=== PATIENT | female | born 1960 | race Caucasian/White ===

== ENCOUNTER → 2018-04-01 | Outpatient (CLI) | payer BC ==
--- NOTE | 2018-04-01 15:13 | BD ---
EXAMINATION TYPE: Axial Bone Density DATE OF EXAM: 04/01/2018 COMPARISON: NONE CLINICAL HISTORY: 57-year-old female age-related osteoporosis, postmenopausal screening Height: 5 FT 5 IN Weight: 255 FRAX RISK QUESTIONS: RISK FACTORS HISTORY OF: Postmenopausal woman: AGE 49 MEDICATIONS: Additional Medications: METOPROLOL, HYDROCHLOROTHIAZIDE, ACID REFLUX MEDS, VESICARE, ATORVASTATIN, TAMINS, ALLERGY MEDS OTC , PRESERVISION, Additional History: EXAM MEASUREMENTS: Bone mineral densitometry was performed using the [employer] System. Bone mineral density as measured about the Lumbar spine is: ----- L1-L4(G/cm2): 1.410 T Score Values are as follows: ----- L2: 1.8 ----- L3: 2.3 ----- L4: 1.8 ----- L1-L4: 1.9 BASELINE Bone mineral density about the R hip (g/cm2): 0.974 Bone mineral density about the L hip (g/cm2): 0.992 T Score values are as follows: -----R Neck: -0.5 -----L Neck: -0.3 -----R Total: 0.5 -----L Total: 0.8 BASELINE IMPRESSION: Normal (Values between +1 and -1 indicate normal bone mass). Consider repeating this study in 5 year s or sooner if there is some new clinical indication. NOTE: T-SCORE=SD OF THE YOUNG ADULT MEAN.
--- NOTE | 2018-04-02 13:50 | MM ---
Reason for exam: screening (asymptomatic). Last mammogram was performed 2 years ago. History: Patient is postmenopausal and is nulliparous. Benign excisional biopsy of the right breast. Physical Findings: A clinical breast exam by your physician is recommended on an annual basis and results should be correlated with mammographic findings. MG Screening Mammo w CAD Bilateral CC and MLO view(s) were taken. Prior study comparison: March 26, 2016, mammogram, performed at [facility]. December 26, 2014, mammogram, performed at [facility]. The breast tissue is heterogeneously dense. This may lower the sensitivity of mammography. Previous mammotome biopsy in the right breast. There is chronic nodularity in the left axilla. There is no discrete abnormality. ASSESSMENT: Benign, BI-RAD 2 RECOMMENDATION: Routine screening mammogram of both breasts in 1 year.
== END | disposition home or self-care (01) ==
LOC: RADMAMWWP 08:07
PROVIDERS: ATTEND Internal Medicine Geriatric Medicine
DX: Z12.31 Encounter for screening mammogram for malignant neoplasm of breast (principal); M81.0 Age-related osteoporosis without current pathological fracture
CPT/HCPCS: 77067; 77080

== ENCOUNTER → 2019-07-01 | Outpatient (CLI) | payer BC ==
--- NOTE | 2019-07-02 11:07 | MM ---
Reason for exam: screening (asymptomatic). Last mammogram was performed 1 year and 3 months ago. History: Patient is postmenopausal and is nulliparous. Benign excisional biopsy of the right breast. Took hormonal contraceptives for 10 years. Physical Findings: A clinical breast exam by your physician is recommended on an annual basis and results should be correlated with mammographic findings. MG 3D Screening Mammo W/Cad Bilateral CC and MLO view(s) were taken. Prior study comparison: April 01, 2018, bilateral MG screening mammo w CAD. March 26, 2016, mammogram, performed at [facility]. There are scattered fibroglandular densities. No significant changes when compared with prior studies. ASSESSMENT: Benign, BI-RAD 2 RECOMMENDATION: Routine screening mammogram of both breasts in 1 year.
== END | disposition home or self-care (01) ==
LOC: RADMAMWWP 06:50
PROVIDERS: ATTEND Internal Medicine Geriatric Medicine
DX: Z12.31 Encounter for screening mammogram for malignant neoplasm of breast (principal)
CPT/HCPCS: 77063; 77067

== ENCOUNTER → 2020-10-18 | Outpatient (CLI) | payer BC ==
--- NOTE | 2020-10-20 09:57 | MM ---
Reason for exam: screening (asymptomatic). Last mammogram was performed 1 year and 4 months ago. History: Patient is postmenopausal and is nulliparous. Benign excisional biopsy of the right breast. Took hormonal contraceptives for 10 years. Physical Findings: A clinical breast exam by your physician is recommended on an annual basis and results should be correlated with mammographic findings. MG 3D Screening Mammo W/Cad Bilateral CC and MLO view(s) were taken. Prior study comparison: July 01, 2019, bilateral MG 3d screening mammo w/cad. April 01, 2018, bilateral MG screening mammo w CAD. The breast tissue is heterogeneously dense. This may lower the sensitivity of mammography. There is no discrete abnormality. No significant changes when compared with prior studies. ASSESSMENT: Negative, BI-RAD 1 RECOMMENDATION: Routine screening mammogram of both breasts in 1 year.
== END | disposition home or self-care (01) ==
LOC: RADMAMWWP 08:01
PROVIDERS: ATTEND Internal Medicine Geriatric Medicine
DX: Z12.31 Encounter for screening mammogram for malignant neoplasm of breast (principal); Z78.0 Asymptomatic menopausal state
CPT/HCPCS: 77063; 77067

== ENCOUNTER → 2021-01-18 | Outpatient (CLI) | payer BC ==
--- NOTE | 2021-01-18 08:39 | US ---
EXAMINATION TYPE: US abdomen complete DATE OF EXAM: 01/18/2021 COMPARISON: NONE CLINICAL HISTORY: R10.84 Generalized Abdominal Pain. RUQ pain EXAM MEASUREMENTS: Liver Length: 20.8 cm Gallbladder Wall: 0.2 cm CBD: 0.5 cm Spleen: 11.9 cm Right Kidney: 12.5 x 4.2 x 4.8 cm Left Kidney: 12.5 x 4.6 x 4.6 cm Technical limitations due to patient's body habitus and overlying bowel content Pancreas: Obscured by bowel gas Liver: The liver parenchyma is enlarged and diffusely fatty infiltrated., Probable cyst within the left lobe measuring 0.8 x 1.0 cm with through transmission. Evidence for sonographic Cordero's sign: no CBD: wnl Spleen: appears wnl Right Kidney: no evidence of hydronephrosis Left Kidney: no evidence of hydronephrosis Upper IVC: wnl Abd Aorta: wnl IMPRESSION: 1. Diffuse fatty infiltration and hepatomegaly. 1 cm probable cyst in the left lobe of the liver. 2. No gallstones. 3. No hydronephrosis or shadowing renal calculi. 4. The pancreas is partially obscured due to overlying bowel gas.
--- NOTE | 2021-01-18 10:34 | XR ---
EXAMINATION TYPE: XR chest 2V DATE OF EXAM: 01/18/2021 COMPARISON: None HISTORY: 60-year-old female R09.1, right-sided pleurisy TECHNIQUE: Frontal and lateral views FINDINGS: The cardiomediastinal silhouette, aorta, and pulmonary vasculature are within normal limits. Hazy yara g densities related to overlying soft tissue. Otherwise, lungs and pleural spaces are clear. IMPRESSION: No acute cardiopulmonary process.
== END | disposition home or self-care (01) ==
LOC: RADUSWWP 07:23
PROVIDERS: ATTEND Internal Medicine Geriatric Medicine
DX: K76.0 Fatty (change of) liver, not elsewhere classified (principal); R16.0 Hepatomegaly, not elsewhere classified; R09.1 Pleurisy
CPT/HCPCS: 71046; 76700

== ENCOUNTER → 2022-08-15 | Outpatient (CLI) | payer BC ==
--- NOTE | 2022-08-16 11:29 | MM ---
Reason for Exam: Screening (asymptomatic). Last mammogram was performed 1 year(s) and 10 month(s) ago. Patient History: Menarche at age 11. Patient has no children. Postmenopausal. Patient used Hormonal Contraceptives for 10 years. Benign Excisional Biopsy on the right side. Risk Values: Sheila 5 year model risk: 2.1%. NCI Lifetime model risk: 8.4%. Prior Study Comparison: 04/01/2018 Bilateral Screening Mammogram, [facility]. 07/01/2019 Bilateral Screening Mammogram, [facility]. 10/18/2020 Bilateral Screening Mammogram, [facility]. Tissue Density: There are scattered fibroglandular densities. Findings: Analyzed By CAD. There are a few scattered small benign-appearing round calcifications bilaterally seen on current study. Benign-appearing vascular calcification is seen on current study. New group of indistinct calcifications anterior depth slightly inner lower aspect left breast warrants further workup. Overall Assessment: Incomplete: need additional imaging evaluation, BI-RAD 0 Management: Special View Mammogram of the left breast. Return for additional spot magnification and true lateral views left breast. Electronically signed and approved by: Amilcar Carter M.D.
== END | disposition home or self-care (01) ==
LOC: RADMAMWWP 09:12
PROVIDERS: ATTEND Internal Medicine Geriatric Medicine
DX: Z12.31 Encounter for screening mammogram for malignant neoplasm of breast (principal); Z78.0 Asymptomatic menopausal state; Z98.890 Other specified postprocedural states
CPT/HCPCS: 77063; 77067

== ENCOUNTER → 2022-08-21 | Outpatient (CLI) | payer BC ==
--- NOTE | 2022-08-23 09:12 | MM ---
Reason for Exam: Additional evaluation requested from abnormal screening. Last screening mammogram was performed less than 1 month ago. Patient History: Menarche at age 11. Patient has no children. Postmenopausal. Patient used Hormonal Contraceptives for 10 years. Benign Excisional Biopsy on the right side. Risk Values: Sheila 5 year model risk: 2.1%. NCI Lifetime model risk: 8.4%. Prior Study Comparison: 07/01/2019 Bilateral Screening Mammogram, [facility]. 10/18/2020 Bilateral Screening Mammogram, [facility]. 08/15/2022 Bilateral MG 3D screening mammo w/cad, [facility]. Tissue Density: Left: There are scattered fibroglandular densities. Findings: Analyzed By CAD. Calcifications may reside within a vessel. Six-month follow-up is advised. Overall Assessment: Probably benign, BI-RAD 3 Management: Diagnostic Mammogram of the left breast. A clinical breast exam by your physician is recommended on an annual basis and results should be correlated with mammographic findings. This exam should not preclude additional follow-up of suspicious palpable abnormalities. Results were given to the patient verbally at the time of exam. Electronically signed and approved by: Oliverio Gaviria M.D. Radiologis
== END | disposition home or self-care (01) ==
LOC: RADMAMWWP 09:00
PROVIDERS: ATTEND Internal Medicine Geriatric Medicine
DX: R92.8 Other abnormal and inconclusive findings on diagnostic imaging of breast (principal); Z78.0 Asymptomatic menopausal state; Z98.890 Other specified postprocedural states
CPT/HCPCS: 77061; 77065

== ENCOUNTER → 2023-04-09 | Outpatient (CLI) | payer BC ==
--- NOTE | 2023-04-09 09:58 | MM ---
Reason for Exam: Follow-up at short interval from prior study. Last screening mammogram was performed 8 month(s) ago. Patient History: Menarche at age 11. Patient has no children. Postmenopausal. Patient used Hormonal Contraceptives for 10 years. Benign Excisional Biopsy on the right side. Risk Values: Sheila 5 year model risk: 2.1%. NCI Lifetime model risk: 8.4%. Prior Study Comparison: 10/18/2020 Bilateral Screening Mammogram, [facility]. 08/15/2022 Bilateral MG 3D screening mammo w/cad, [facility]. 08/21/2022 Left MG 3D work up w/cad LT, [facility]. Tissue Density: Left: There are scattered fibroglandular densities. Findings: Analyzed By CAD. Pattern appears stable. There are scattered benign-appearing calcifications present. No suspicious grouping of calcifications is evident. Prior Calcifications are not as well visualized. No suspicious groups of microcalcifications, spiculated or lobular masses, architectural distortion or other secondary signs of malignancy are mammographically apparent. Overall Assessment: Benign, BI-RAD 2 Management: Screening Mammogram of both breasts in 6 months. A negative mammogram report should not preclude additional follow up of suspicious palpable abnormalities. Patient should continue monthly self breast exam. A clinical breast exam by your physician is recommended on an annual basis and results should be correlated with mammographic findings. Electronically signed and approved by: Fabrice Rashid D.O. Radiologis
== END | disposition home or self-care (01) ==
LOC: RADMAMWWP 09:33
PROVIDERS: ATTEND Internal Medicine Geriatric Medicine
DX: R92.2 Inconclusive mammogram (principal); Z78.0 Asymptomatic menopausal state
CPT/HCPCS: 77061; 77065

== ENCOUNTER → 2023-08-12 | Outpatient (CLI) | payer OTHER ==
--- NOTE | 2023-08-12 13:44 | XR ---
EXAMINATION TYPE: XR ankle complete RT DATE OF EXAM: 08/12/2023 COMPARISON: NONE HISTORY: Pain TECHNIQUE: Frontal, lateral and oblique images of the right ankle are obtained. COMPARISON: None. FINDINGS: There is no acute fracture/dislocation evident. The joint spaces appear within normal arana its. Diffuse soft tissue edema. Small posterior calcaneal spur. IMPRESSION: 1. There is no acute fracture or dislocation seen. 2. Diffuse soft tissue edema.
== END | disposition home or self-care (01) ==
LOC: RADXRMAIN 13:17
PROVIDERS: ATTEND Internal Medicine Geriatric Medicine
DX: R60.0 Localized edema (principal); M25.571 Pain in right ankle and joints of right foot

== ENCOUNTER → 2023-10-03 | Outpatient (CLI) | payer OTHER ==
--- NOTE | 2023-10-07 09:21 | MM ---
Reason for Exam: Screening (asymptomatic). Last mammogram was performed 1 year(s) and 2 month(s) ago. Patient History: Menarche at age 11. Patient has no children. Postmenopausal. Patient used Hormonal Contraceptives for 10 years. Benign Excisional Biopsy on the right side. Risk Values: Sheila 5 year model risk: 2.2%. NCI Lifetime model risk: 8.2%. Prior Study Comparison: 08/15/2022 Bilateral MG 3D screening mammo w/cad, [facility]. 08/21/2022 Left MG 3D work up w/cad LT, [facility]. 04/09/2023 Left MG 3D diag mammo w/cad LT, [facility]. Tissue Density: There are scattered areas of fibroglandular density. Findings: Analyzed By CAD. Left breast biopsy clip. There is no suspicious group of microcalcifications or new suspicious mass. Overall Assessment: Negative, BI-RAD 1 Management: Screening Mammogram of both breasts in [address] [facility] will attempt to contact patient to return for supplemental views and ultrasound if indicated. Patient should continue monthly self-breast exams. A clinical breast exam by your physician is recommended on an annual basis. This exam should not preclude additional follow-up of suspicious palpable abnormalities. Note on Sheila scores and lifetime risk: 1. A Sheila score greater than 3% is considered moderate risk. If this is the case, consider specialist referral to assess eligibility for a risk reducing agent. 2. If overall lifetime risk for the development of breast cancer is 20% or higher, the patient may qualify for future screening with alternating mammogram and breast MRI. Electronically signed and approved by: Dylon Rivers DO
== END | disposition home or self-care (01) ==
LOC: RADMAMWWP 09:25
PROVIDERS: ATTEND Internal Medicine Geriatric Medicine
DX: Z12.31 Encounter for screening mammogram for malignant neoplasm of breast (principal); Z78.0 Asymptomatic menopausal state
CPT/HCPCS: 77063; 77067

== ENCOUNTER → 2023-12-01 | Outpatient (CLI) | payer OTHER ==
--- NOTE | 2023-12-01 18:10 | BD ---
EXAMINATION TYPE: Axial Bone Density DATE OF EXAM: 12/01/2023 CLINICAL HISTORY: 63 years old Female. ICD-10 CODE: M81.0 AGE-RELATED OSTEOPOROSIS W/O CURRENT PATHO LO Height: 65in Weight: 268lb FRAX RISK QUESTIONS: Secondary Osteoporosis: RISK FACTORS HISTORY OF: MEDICATIONS: EXAM MEASUREMENTS: Bone mineral densitometry was performed using the [employer] System. Bone mineral density as measured about the Lumbar spine is: ----- L1-L4(G/cm2): 1.484 T Score Values are as follows: ----- L1: 1.2 ----- L2: 2.6 ----- L3: 3.7 ----- L4: 2.2 ----- L1-L4: 2.5 Z Score Values are as follows: ----- L1: 1.6 ----- L2: 3.0 ----- L3: 4.2 ----- L4: 2.7 ----- L1-L4: 3.0 Bone mineral density has: Increased 5.2% since study of: 04-01-18 Bone mineral density about the R hip (g/cm2): 1.105 Bone mineral density about the L hip (g/cm2): 1.166 T Score values are as follows: -----R Neck: -0.6 -----L Neck: -0.1 -----R Total: 0.8 -----L Total: 1.3 Z Score values are as follows: -----R Neck: 0.2 -----L Neck: 0.6 -----R Total: 1.1 -----L Total: 1.6 Bone mineral density has: Increased 4.6% since study of: 04-01-18 FRAX%s: The graph provided illustrates a 6.3% chance for a major osteoporotic fx and a 0.3% chance fo r the hips probability for fx in 10 years time. IMPRESSION: Normal (Values between +1 and -1 indicate normal bone mass). Consider repeating this study in 5 year s or sooner if there is some new clinical indication. NOTE: T-SCORE=SD OF THE YOUNG ADULT MEAN.
== END | disposition home or self-care (01) ==
LOC: RADBDWWP 06:56
PROVIDERS: ATTEND Internal Medicine Geriatric Medicine
DX: M81.0 Age-related osteoporosis without current pathological fracture (principal)
CPT/HCPCS: 77080

== ENCOUNTER → 2024-03-26 | Outpatient (CLI) | payer MEDICARE ==
[2024-03-26 11:22] LABS: African American GFR (CKD) 81 (>60 ml/min/1.73 sqM); Blood Urea Nitrogen 18 mg/dL (7-17); Non-African American GFR(CKD) 70 (>60 ml/min/1.73 sqM)
--- NOTE | 2024-03-26 12:56 | CT ---
EXAMINATION TYPE: CT abdomen pelvis wo/w con DATE OF EXAM: 03/26/2024 COMPARISON: None HISTORY: fall, swelling and pain to mid abd CT DLP: 3236 mGycm Automated exposure control for dose reduction was used. TECHNIQUE: Helical acquisition of images was performed from the lung bases through the pelvis. CONTRAST: Performed with Oral Contrast and without and with IV Contrast, patient injected with 100 mL of Isovue 300. FINDINGS: The lung bases are clear. The gallbladder is normal without distention, wall thickening, pericholecystic fluid or gallstones. T here is no biliary ductal dilatation. There is no focal mass or organomegaly involving the liver, pancreas, spleen or adrenal glands. There is no solid renal mass or hydronephrosis and there is homogeneous contrast enhancement of the r enal parenchyma. The caliber the abdominal aorta is normal is no retroperitoneal adenopathy or hemorr elizabeth. The bowel loops are normal in caliber and there is no evidence of dilatation or obstruction. No infla mmatory changes are identified in the bowel wall or mesentery. There is no free intraperitoneal air or fluid. No pelvic mass, free fluid, abscess or adenopathy. There is a well-contained 19 x 9 x 15 cm mildly complex fluid collection in the right anterolateral a bdominal wall consistent with a hematoma. IMPRESSION: Large right anterolateral abdominal wall hematoma as described above. No other signal abnormality wit hin the abdomen or pelvis.
== END | disposition home or self-care (01) ==
LOC: RADCTMAIN 10:18
PROVIDERS: ATTEND Internal Medicine Geriatric Medicine
DX: R10.9 Unspecified abdominal pain
CPT/HCPCS: 36415; 74178; 82565; 84520

== ENCOUNTER 2024-05-06 16:16 | Inpatient (IN) | payer MEDICARE ==
--- NOTE | 2024-05-06 16:40 | ED ---
Abdominal Pain HPI - General Source: patient, RN notes reviewed Mode of arrival: ambulatory Limitations: no limitations <Suzy Marin - Last Filed: 05/06/24 16:37> - General Source: patient, RN notes reviewed Mode of arrival: ambulatory Limitations: no limitations - History of Present Illness MD Complaint: abdominal pain (Wall pain with mass) -: week(s) Migration to: periumbilical Severity: severe Severity scale (1-10): 10 Quality: stabbing Consistency: constant Improves With: nothing Worsens With: nothing Associated Symptoms: denies other symptoms Treatments Prior to Arrival: other (0) <Parish Robledo - Last Filed: 05/11/24 21:34> - General Chief Complaint: Abdominal Pain Stated Complaint: Stomach pain, sent in by PCP Time Seen by Provider: 05/06/24 16:38 - History of Present Illness Initial Comments: Quick [id number] female presenting for abdominal mass x 3 months status post injury. States 3 months ago she fell down a flight of stairs, and ever since has had a growing painful mass on the right side of her abdomen. She has been following with her PCP for this where they told her it is growing in size and sent her to the ER for further evaluation. Patient denies fever, chills, nausea, vomiting. She is on Eliquis. (Suzy Marin) This is a 63-year-old female to the ER with severe abdominal wall mass with severe tenderness on Eliquis (Parish Robledo) - Related Data Home Medications Medication Instructions Recorded Confirmed Atorvastatin [Lipitor] 20 mg PO Q48H 05/06/24 05/06/24 EPINEPHrine (Auto Inject) [Epipen] 0.3 mg IM ONCE PRN 05/06/24 05/06/24 Escitalopram [Lexapro] 10 mg PO HS 05/06/24 05/06/24 Fexofenadine HCl [Conchita Allergy] 180 mg PO HS 05/06/24 05/06/24 Metoprolol Succinate (ER) [Toprol 150 mg PO HS 05/06/24 05/06/24 XL] Multivitamins, Thera [Multivitamin 1 tab PO HS 05/06/24 05/06/24 (formulary)] Potassium Chloride ER [K-Dur 10] 10 meq PO MOTUWETHFR 05/06/24 05/06/24 Solifenacin Succinate [Vesicare] 5 mg PO HS 05/06/24 05/06/24 Triamterene/Hydrochlorothiazid 1 cap PO HS 05/06/24 05/06/24 [Triamterene-Hctz 37.5-25 mg Cp] Vit C/E/Zn/Coppr/Lutein/Zeaxan 1 cap PO HS 05/06/24 05/06/24 [Preservision Areds 2 Softgel] Previous Rx's Medication Instructions Recorded Apixaban [Eliquis] 5 mg PO BID #0 05/10/24 Allergies Allergy/AdvReac Type Severity Reaction Status Date / Time bee venom protein (honey bee) Allergy Swelling Verified 05/06/24 19:59 bees Allergy Swelling Uncoded 05/06/24 19:59 Review of Systems ROS Other: All systems not noted in ROS Statement are negative. <Suzy Mrain - Last Filed: 05/06/24 16:37> ROS Other: All systems not noted in ROS Statement are negative. <Parish Robledo - Last Filed: 05/11/24 21:34> ROS Statement: Those systems with pertinent positive or pertinent negative responses have been documented in the HPI. Past Medical History Past Medical History: Hyperlipidemia, Hypertension Past Surgical History: Ablation Additional Past Surgical History / Comment(s): benign brain tumor removed Smoking Status: Never smoker Past Alcohol Use History: None Reported Past Drug Use History: None Reported <Suzy Marin - Last Filed: 05/06/24 16:37> - Past Family History Mother Family Medical History: No Reported History, Dementia Father Family Medical History: Cancer, Chest Pain / Angina, Coronary Artery Disease (CAD), Myocardial Infarction (MA) Additional Family Medical History / Comment(s): CABG-lung CA <Parish Robledo - Last Filed: 05/11/24 21:34> General Exam Limitations: no limitations <Suzy Marin - Last Filed: 05/06/24 16:37> General appearance: alert, in no apparent distress Head exam: Present: atraumatic, normocephalic, normal inspection Eye exam: Present: normal appearance, PERRL, EOMI. Absent: scleral icterus, con junctival injection, periorbital swelling ENT exam: Present: normal exam, mucous membranes moist Neck exam: Present: normal inspection. Absent: tenderness, meningismus, lymphadenopathy Respiratory exam: Present: normal lung sounds bilaterally. Absent: respiratory distress, wheezes, rales, rhonchi, stridor Cardiovascular Exam: Present: regular rate, normal rhythm, normal heart sounds. Absent: systolic murmur, diastolic murmur, rubs, gallop, clicks GI/Abdominal exam: Present: soft, distended, tenderness, guarding, rebound, normal bowel sounds. Absent: rigid Extremities exam: Present: normal inspection, full ROM, normal capillary refill. Absent: tenderness, pedal edema, joint swelling, calf tenderness Back exam: Present: normal inspection Neurological exam: Present: alert, oriented X3, CN II-XII intact Psychiatric exam: Present: normal affect, normal mood Skin exam: Present: warm, dry, intact, normal color. Absent: rash <Parish Robledo - Last Filed: 05/11/24 21:34> - General Exam Comments Initial Comments: Visual Physical Exam Vital signs reviewed General: Well-appearing, nontoxic, no acute distress. Head: Normocephalic, atraumatic Eyes: PERRLA, EOMI ENT: Airway patent Chest: Nonlabored breathing Skin: No visual rash, normal skin tone Neuro: Alert and oriented 3 Musculoskeletal: No gross abnormalities (Suzy Marin) Course <Parish Robledo - Last Filed: 05/11/24 21:34> Vital Signs 05/06/24 05/06/24 05/06/24 16:22 18:49 20:46 Temperature 98.2 F 98.2 F Pulse Rate 88 90 56 L Pulse Rate [ Left] Respiratory 18 18 18 Rate Blood Pressure 113/74 154/78 157/75 Blood Pressure [Left Arm] O2 Sat by Pulse 96 98 97 Oximetry 05/06/24 05/07/24 05/07/24 21:41 02:58 06:00 Temperature 98.2 F Pulse Rate 57 L 79 54 L Pulse Rate [ Left] Respiratory 18 18 18 Rate Blood Pressure 163/83 123/61 112/61 Blood Pressure [Left Arm] O2 Sat by Pulse 98 98 100 Oximetry 05/07/24 05/07/24 05/07/24 09:17 12:13 12:42 Temperature Pulse Rate 77 Pulse Rate [ 55 L 54 L Left] Respiratory 20 16 16 Rate Blood Pressure 124/87 Blood Pressure 144/81 144/81 [Left Arm] O2 Sat by Pulse 97 97 96 Oximetry 05/07/24 05/07/24 05/07/24 13:10 13:48 16:00 Temperature 97.6 F Pulse Rate 54 L Pulse Rate [ 55 L 64 Left] Respiratory 16 20 17 Rate Blood Pressure 128/70 128/70 Blood Pressure 152/82 122/78 [Left Arm] O2 Sat by Pulse 97 97 Oximetry 05/07/24 17:32 Temperature Pulse Rate 54 L Pulse Rate [ Left] Respiratory 20 Rate Blood Pressure 127/81 Blood Pressure [Left Arm] O2 Sat by Pulse 97 Oximetry - Reevaluation(s) Reevaluation #1: 05/06/24 19:29 Medical records reviewed (Parish Robledo) Reevaluation #2: 05/06/24 19:29 Patient symptoms are unchanged (Parish Robledo) Reevaluation #3: 05/06/24 19:29 Informed of results and questions answered (Parish Robledo) Reevaluation #4: Was pt. sent in by a medical professional or institution (, PA, FLIGHT SERVICE AGENT, urgent care, hospital, or penitentiary...) When possible be specific @ -no Did you speak to anyone other than the patient for history (EMS, parent, family, police, friend...)? What history was obtained from this source @ -no Did you review nursing and triage notes (agree or disagree)? Why? @ -agree Are old charts reviewed (outside hosp., previous admission, EMS record, old EKG, old radiological studies, urgent care reports/EKG's, penitentiary records)? Report findings @ -yes Differential Diagnosis (chest pain, altered mental status, abdominal pain women, abdominal pain men, vaginal bleeding, weakness, fever, dyspnea, syncope, headache, dizziness, GI bleed, back pain, seizure, CVA, palpatations, mental health, musculoskeletal)? @ -prior EKG interpreted by me (3pts min.). @ -yes X-rays interpreted by me (1pt min.). @ -no CT interpreted by me (1pt min.). @ -Yes positive for significant fluid-filled mass U/S interpreted by me (1pt. min.). @ -no What testing was considered but not performed or refused? (CT, X-rays, U/S, labs)? Why? @ -none What meds were considered but not given or refused? Why? @ -none Did you discuss the management of the patient with other professionals (professionals i.e. , PA, FLIGHT SERVICE AGENT, lab, RT, psych nurse, long term care social worker, real estate intern, teacher, information systems security officer, pillowcase folder)? Give summary @ -no Was smoking cessation discussed for >3mins.? @ -no Was critical care preformed (if so, how long)? @ -no Were there social determinants of health that impacted care today? How? (Homelessness, low income, unemployed, alcoholism, drug addiction, transportation, low edu. Level, literacy, decrease access to med. care, [facility], rehab)? @ -none Was there de-escalation of care discussed even if they declined (Discuss DNR or withdrawal of care, Hospice)? DNR status @ -no What co-morbidities impacted this encounter? (DM, HTN, Smoking, COPD, CAD, Cancer, CVA, ARF, Chemo, Hep., AIDS, mental health diagnosis, sleep apnea, morbid obesity)? @ -none Was patient admitted / discharged? Hospital course, mention meds given and route, prescriptions, significant lab abnormalities, going to OR and other pertinent info. @ - 63 female to ER for abdominal pain and significant abdominal wall swelling and cavitation, patient will be admitted for further evaluation and management Admitted Undiagnosed new problem with uncertain prognosis? @ -no Drug Therapy requiring intensive monitoring for toxicity (Heparin, Nitro, I nsulin, Cardizem)? @ -no Were any procedures done? @ -no Diagnosis/symptom? @ -Abdominal wall fluid-filled mass Acute, or Chronic, or Acute on Chronic? @ -Acute Uncomplicated (without systemic symptoms) or Complicated (systemic symptoms)? @ -Complicated Side effects of treatment? @ -no Exacerbation, Progression, or Severe Exacerbation? @ -exacerbation Poses a threat to life or bodily function? How? (Chest pain, USA, MA, pneumonia, PE, COPD, DKA, ARF, appy, cholecystitis, CVA, Diverticulitis, Homicidal, Suicidal, threat to staff... and all critical care pts) @ -yes significant abdominal wall findings (Parish Robledo) Reevaluation #5: Differential Abdominal Pain Women: Appendicitis, Cholecystitis, diverticulosis, ischemic bowel, pancreatitis, hepatitis, UTI, gastroenteritis, AAA, incarcerated hernia, bowel obstruction, constipation, inflammatory bowel, hepatitis, peptic ulcer disease, splenic infarction, perforated viscus, vulvitis, ovarian torsion, PID, kidney stone, placenta abruption, this is not meant to be an all-inclusive list (Parish Robledo) - Consultations Consultation #1: Dr. Pyle who agrees to admit this patient (Parish Robledo) Medical Decision Making <Suzy Marin - Last Filed: 05/06/24 16:37> - Lab Data Result diagrams: 05/09/24 07:16 05/09/24 07:16 - Radiology Data Radiology results: report reviewed (CT abdomen pelvis that shows significantly large fluid density), image reviewed <Parish Robledo - Last Filed: 05/11/24 21:34> - Medical Decision Making I completed the quick note portion of this chart signed Suzy Marin PA-C (Suzy Marin) 63 female to ER for abdominal pain and significant abdominal wall swelling and cavitation, patient will be admitted for further evaluation and management (Parish Robledo) - Lab Data Lab Results 05/06/24 05/06/24 05/06/24 Range/Units 18:39 18:39 18:39 WBC 7.7 (3.8-10.6) k/uL RBC 4.31 (3.80-5.40) m/uL Hgb 12.9 (11.4-16.0) gm/dL Hct 39.3 (34.0-46.0) % MCV 91.1 (80.0-100.0) fL MCH 30.0 (25.0-35.0) pg MCHC 32.9 (31.0-37.0) g/dL RDW 14.7 (11.5-15.5) % Plt Count 194 (150-450) k/uL MPV 7.1 Neutrophils % 64 % Lymphocytes % 26 % Monocytes % 6 % Eosinophils % 1 % Basophils % 1 % Neutrophils # 4.9 (1.3-7.7) k/uL Lymphocytes # 2.0 (1.0-4.8) k/uL Monocytes # 0.5 (0-1.0) k/uL Eosinophils # 0.1 (0-0.7) k/uL Basophils # 0.0 (0-0.2) k/uL Sodium 141 (137-145) mmol/L Potassium 3.5 (3.5-5.1) mmol/L Chloride 103 (98-107) mmol/L Carbon Dioxide 31 H (22-30) mmol/L Anion Gap 7 mmol/L BUN 18 H (7-17) mg/dL Creatinine 0.89 (0.52-1.04) mg/dL Est GFR (CKD-EPI)AfAm 79 (>60 ml/min/1.73 sqM) Est GFR (CKD-EPI)NonAf 68 (>60 ml/min/1.73 sqM) Glucose 97 (74-99) mg/dL Plasma Lactic Acid Deon 1.8 (0.7-2.0) mmol/L Calcium 9.2 (8.4-10.2) mg/dL Total Bilirubin 0.9 (0.2-1.3) mg/dL AST 33 (14-36) U/L ALT 25 (4-34) U/L Alkaline Phosphatase 97 (38-126) U/L C-Reactive Protein 1.9 H (<1.0) mg/dL Total Protein 6.9 (6.3-8.2) g/dL Albumin 4.4 (3.5-5.0) g/dL Disposition <Suzy Marin - Last Filed: 05/06/24 16:37> Is patient prescribed a controlled substance at d/c from ED?: No Time of Disposition: 20:30 <Parish Robledo - Last Filed: 05/11/24 21:34> Clinical Impression: Abdominal pain Narrative: Abdominal Wall Fluid Collection (Parish Robledo) Disposition: HOME SELF-CARE Condition: Fair
[2024-05-06 18:52] LABS: Basophils % (A) 1 %; Eosinophils # (A) 0.1 k/uL (0-0.7); Eosinophils % (A) 1 %; HCT 39.3 % (34.0-46.0); HGB 12.9 gm/dL (11.4-16.0); Lymphocytes % (A) 26 %; MCHC 32.9 g/dL (31.0-37.0); MCV 91.1 fL (80.0-100.0); Mean Platelet Volume 7.1; Monocytes # (A) 0.5 k/uL (0-1.0); Monocytes % (A) 6 %; Neutrophils # (A) 4.9 k/uL (1.3-7.7); Neutrophils % (A) 64 %; Platelet Count 194 k/uL (150-450); RBC 4.31 m/uL (3.80-5.40); RDW 14.7 % (11.5-15.5); WBC 7.7 k/uL (3.8-10.6)
[2024-05-06 19:05] LABS: ALT 25 U/L (4-34); AST 33 U/L (14-36); African American GFR (CKD) 79 (>60 ml/min/1.73 sqM); Albumin 4.4 g/dL (3.5-5.0); Alkaline Phosphatase 97 U/L (38-126); Anion Gap 7 mmol/L; Blood Urea Nitrogen 18 mg/dL (7-17); C Reactive Protein 1.9 mg/dL (<1.0); Calcium 9.2 mg/dL (8.4-10.2); Carbon Dioxide 31 mmol/L (22-30); Chloride 103 mmol/L (98-107); Glucose 97 mg/dL (74-99); Non-African American GFR(CKD) 68 (>60 ml/min/1.73 sqM); Potassium 3.5 mmol/L (3.5-5.1); Sodium 141 mmol/L (137-145); Total Bilirubin 0.9 mg/dL (0.2-1.3); Total Protein 6.9 g/dL (6.3-8.2)
--- NOTE | 2024-05-06 19:48 | CT ---
EXAMINATION TYPE: CT abdomen pelvis w con CT DLP: 2202.6 mGycm, Automated exposure control for dose reduction was used. DATE OF EXAM: 05/06/2024 7:35 PM COMPARISON: CT abdomen pelvis most recent from CLINICAL INDICATION: Female, 63 years old with history of abdominal mass s/p trauma; fell 3 months ag o and had a hematoma in her stomach that has since grown exponentially. TECHNIQUE: Axial CT abdomen pelvis w con;Sagittal and coronal reformats were created on a separate w orkstation. Contrast used:100ml mL of Isovue 300 with IV Contrast, (none if empty) Oral contrast used: without Oral Contrast (none if empty) FINDINGS: LOWER CHEST: Streaky atelectasis in the lung bases. ABDOMEN LIVER: Probable hepatic cysts which are subcentimeter scattered throughout the parenchyma. GALLBLADDER AND BILE DUCTS: Unremarkable. PANCREAS: Unremarkable. SPLEEN: Small splenule is present. ADRENAL GLANDS: Unremarkable. KIDNEYS AND URETERS: No evidence of hydronephrosis or renal calculus. The ureters are unremarkable. PELVIS BLADDER: Unremarkable REPRODUCTIVE: Just anterior to uterus is possible exophytic fibroid with calcification measuring 25 m m. PELVIS STOMACH AND BOWEL: No evidence of bowel obstruction. PERITONEUM/RETROPERITONEUM: No evidence of pneumoperitoneum or free fluid. VASCULATURE: Mild atherosclerotic calcifications are present throughout the abdominal aorta and its b ranches. No evidence of aortic aneurysm. MUSCULOSKELETAL: No acute osseous abnormalities. Mild disc degeneration changes are present throughou t the thoracolumbar spine. LYMPH NODES: No gross evidence for lymphadenopathy. SOFT TISSUE/ABDOMINAL WALL: Right lateral abdominal wall subcutaneous fluid collection measuring up t o 20.4 x 11.0 x 13.8 cm this is simple density of 13 Hounsfield units . Soft tissue edema in the subc utaneous tissues. Fat-containing umbilical hernia. IMPRESSION: 1. Right lateral abdominal wall subcutaneous simple density fluid collection measuring up to 20.4 x 11.0 by 13.8 cm. 2. No acute abdominal process. 3. Suspected exophytic calcified degenerating fibroid anterior to uterus. [facility], , 05/06/2024 7:46 PM
[2024-05-06] MEDS ORDERED: NALOXONE 0.4 MG/ML 1 ML VIAL IV PRN (20:29)
[2024-05-06] MEDS ORDERED: ONDANSETRON 4 MG/2 ML VIAL IVP PRN (20:29)
[2024-05-06] MEDS ORDERED: HYDROmorphone 1 MG/ML 1 ML SYRINGE IVP PRN (20:29)
[2024-05-06] MEDS ORDERED: NON FORMULARY DRUG (Vit C/E/Zn/Coppr/Lutein/Zeaxan [Preservision Areds 2 Softgel] 1 EACH C PO SCH (21:00)
[2024-05-06] MEDS: SODIUM CHLORIDE 0.9% 1,000 ML IV SCH (21:22)
[2024-05-06] MEDS: METOPROLOL SUCCINATE (ER) 50 MG TAB.ER.24H PO SCH (21:45)
[2024-05-06] MEDS: ESCITALOPRAM 10 MG TAB PO SCH (21:46)
[2024-05-06] MEDS: MULTIVITAMINS, THERA 1 EACH TAB PO SCH (21:46)
[2024-05-06] MEDS: LORATADINE 10 MG TAB PO SCH (21:46)
[2024-05-06] MEDS: POTASSIUM CHLORIDE ER 10 MEQ TAB.ER.PRT PO SCH (21:46)
[2024-05-06] MEDS: ATORVASTATIN 20 MG TAB PO SCH (21:47)
[2024-05-06] MEDS: TRIAMTERENE-HCTZ 37.5-25MG 1 EACH CAP PO SCH (21:47)
[2024-05-06] MEDS: TROSPIUM CHLORIDE 20 MG TABLET PO SCH (21:47)
--- NOTE | 2024-05-06 22:27 | P.HPIM ---
History of Present Illness H&P Date: 05/06/24 HISTORY OF PRESENT ILLNESS: 63-year-old with past medical history of arrhythmia with atrial fibrillation, hypertension, hyperlipidemia, post ablation therapy who also has mild history of osteoarthritis was seen in the office for 2 weeks ago after sustaining a fall to the side with mild trauma creating slight hematoma on the side of her rib cage and abdominal area. She had a trip to [place] which patient has done and through the last 2 weeks has been having significant increase in size and swelling and discomfort on the right abdominal area. Was seen and evaluated tojason mckinley found to have very large mass which appeared to be either hematoma or large growth related to hematoma or trauma on the side. With a slight discomfort and with patient history decided to send him to the emergency department for rapid response and testing for probably CAT scan of the abdomen and probably require consultation for general surgery and general to find out what to do with this large massive hematoma on the side of the abdominal region area. The patient has been having slight increased tightness pain and discomfort significant shortness of breath low-grade temperature mild nausea and change in bowel habit from the symptoms related to her mass swelling discomfort and hematoma. REVIEW OF SYSTEMS: CONSTITUTIONAL: Well-developed no acute respiratory distress. EYES: No icterus sclerae, no conjunctivitis. EARS, NOSE, MOUTH, THROAT, and FACE: No sore throat, lymphadenopathy, carotid bruits or deformity. RESPIRATORY: Mild shortness of breath no cough or wheezes. CARDIOVASCULAR: No CP, positive palpitation, PND, Orthopnea, or angina. GASTROINTESTINAL: No Abd pain, Nausea or vomiting, no Diarrhea or constipation, No GI Bleed, no distention or masses. Large hematoma on the right side of the abdominal wall area. GENITOURINARY: Negative for Hematuria or UTI, no kidney stones. INTEGUMENT/BREAST: Negative for any muscular injury with mild osteoarthritis.. HEMATOLOGIC/LYMPHATIC: Negative for bleed or purpura. MUSCULOSKELTAL: Negative for Myalgia or arthralgia. NEURLOGICAL: No LOC, Sz or syncope, blurred vision dizziness or abnormality.. BEHAVIORAL/PSYCH: Negative. ENDOCRINE: Negative. PHYSICAL EXAMINATION: General Appearance: Alert, cooperative, no distress, appears stated age. Neck HEENT: Supple, no lymphadenopathy, no thyroid enlargement, no carotid bruits. Lungs: Clear to auscultation without crackles or wheezes no rhonchi, no deformity. Chest Wall: Chest wall normal expansion with deep inspiration no tenderness and no deformity was found on exam, no costochondral pain or discomfort. Heart: Regular rate and rhythm, S1, S2 normal, no murmur, rub or gallop. Back: Symmetric, no curvature, ROM normal, no CVA tenderness. Abdomen: Soft, non-tender, bowel sounds active all four quadrants, very large mass with shifting dullness sign of the right upper abdominal area. Extremities: Extremities normal, atraumatic, no cyanosis or edema. Pulses: 2+ and symmetric. Skin: Skin color, texture, tugor normal, no rashes or lesions. Neurologic: Alert oriented x3 cranial nerves II through XII intact, no motor deficit, no abnormal balance or gait. ASSESSMENT AND PLAN: _Very large hematoma versus seroma on the abdominal wall area size is over 24 cm time 12 will probably require I@D, will continue antibiotics for now also consulted vascular in case this is hematoma. _Arrhythmia and A-fib: Post ablation therapy done by outpatient coordinator down [facility] has been doing well. _Hyperlipidemia: Continue Lipitor 20 mg a day. _Hypertension: Remain on metoprolol succinate 150 mg a day continue Dyazide might add losartan. _Mild overflow incontinence: Remain on Sanctura 20 mg a day. _Mild depression: Continue Lexapro 10 mg a day titrate dose higher if needed. _Hiatal hernia and severe GERD: Continue pantoprazole daily. _ Anticoagulation: Patient has been on Eliquis 5 mg twice a day_which should be held for now and prepare for intervention. _DVT prophylaxis: Knee-high VIKKI hose Venodyne boots. CODE STATUS: Full code. Admit patient to the inpatient service for more than 2 night stay. Past Medical History Past Medical History: Hyperlipidemia, Hypertension Past Surgical History: Ablation Additional Past Surgical History / Comment(s): benign brain tumor removed Smoking Status: Never smoker Past Alcohol Use History: None Reported Past Drug Use History: None Reported Medications and Allergies Home Medications Medication Instructions Recorded Confirmed Type Apixaban [Eliquis] 5 mg PO BID 05/06/24 05/06/24 History Atorvastatin [Lipitor] 20 mg PO Q48H 05/06/24 05/06/24 History EPINEPHrine (Auto Inject) [Epipen] 0.3 mg IM ONCE PRN 05/06/24 05/06/24 History Escitalopram [Lexapro] 10 mg PO HS 05/06/24 05/06/24 History Fexofenadine HCl [Conchita Allergy] 180 mg PO HS 05/06/24 05/06/24 History Metoprolol Succinate (ER) [Toprol 150 mg PO HS 05/06/24 05/06/24 History Xl] Multivitamins, Thera [Multivitamin 1 tab PO HS 05/06/24 05/06/24 History (formulary)] Potassium Chloride ER [K-Dur 10] 10 meq PO MOTUWETHFR 05/06/24 05/06/24 History Solifenacin Succinate [Vesicare] 5 mg PO HS 05/06/24 05/06/24 History Triamterene/Hydrochlorothiazid 1 cap PO HS 05/06/24 05/06/24 History [Triamterene-Hctz 37.5-25 mg Cp] Vit C/E/Zn/Coppr/Lutein/Zeaxan 1 cap PO HS 05/06/24 05/06/24 History [Preservision Areds 2 Softgel] Allergies Allergy/AdvReac Type Severity Reaction Status Date / Time bee venom protein (honey bee) Allergy Swelling Verified 05/06/24 19:59 bees Allergy Swelling Uncoded 05/06/24 19:59 Physical Exam Vitals: Vital Signs Temp Pulse Resp BP Pulse Ox 05/06/24 21:41 57 L 18 163/83 98 05/06/24 20:46 98.2 F 56 L 18 157/75 97 05/06/24 18:49 90 18 154/78 98 05/06/24 16:22 98.2 F 88 18 113/74 96 Intake and Output 05/06/24 05/06/24 05/06/24 06:59 14:59 22:59 Other: Weight 122.47 kg Results CBC & Chem 7: 05/06/24 18:39 05/06/24 18:39 Labs: Abnormal Lab Results - Last 24 Hours (Table) 05/06/24 Range/Units 18:39 Carbon Dioxide 31 H (22-30) mmol/L BUN 18 H (7-17) mg/dL C-Reactive Protein 1.9 H (<1.0) mg/dL
[2024-05-07 06:29] LABS: Basophils % (A) 1 %; Eosinophils # (A) 0.1 k/uL (0-0.7); Eosinophils % (A) 1 %; HCT 36.8 % (34.0-46.0); Hypochromasia Slight; Lymphocytes # (A) 1.3 k/uL (1.0-4.8); Lymphocytes % (A) 27 %; MCHC 32.6 g/dL (31.0-37.0); MCV 92.1 fL (80.0-100.0); Mean Platelet Volume 7.1; Monocytes # (A) 0.3 k/uL (0-1.0); Monocytes % (A) 7 %; Neutrophils # (A) 3.1 k/uL (1.3-7.7); Neutrophils % (A) 62 %; Platelet Count 144 k/uL (150-450); RBC 3.99 m/uL (3.80-5.40); RDW 14.7 % (11.5-15.5); WBC 4.9 k/uL (3.8-10.6)
[2024-05-07 06:54] LABS: ALT 21 U/L (4-34); AST 27 U/L (14-36); African American GFR (CKD) >90 (>60 ml/min/1.73 sqM); Albumin 3.7 g/dL (3.5-5.0); Alkaline Phosphatase 91 U/L (38-126); Anion Gap 3 mmol/L; Blood Urea Nitrogen 15 mg/dL (7-17); Calcium 8.8 mg/dL (8.4-10.2); Carbon Dioxide 28 mmol/L (22-30); Chloride 106 mmol/L (98-107); Glucose 100 mg/dL (74-99); Magnesium 2.1 mg/dL (1.6-2.3); Non-African American GFR(CKD) 80 (>60 ml/min/1.73 sqM); Phosphorus 4.1 mg/dL (2.5-4.5); Potassium 3.4 mmol/L (3.5-5.1); Sodium 137 mmol/L (137-145); Total Bilirubin 0.8 mg/dL (0.2-1.3); Total Protein 6.1 g/dL (6.3-8.2)
--- NOTE | 2024-05-07 09:38 | P.PN ---
Subjective 63-year-old with past medical history of arrhythmia with atrial fibrillation, hypertension, hyperlipidemia, post ablation therapy who also has mild history of osteoarthritis was seen in the office for 2 weeks ago after sustaining a fall to the side with mild trauma creating slight hematoma on the side of her rib cage and abdominal area. She had a trip to [place] which patient has done and through the last 2 weeks has been having significant increase in size and swelling and discomfort on the right abdominal area. Was seen and evaluated today found to have very large mass which appeared to be either hematoma or large growth related to hematoma or trauma on the side. With a slight discomfort and with patient history decided to send him to the emergency department for rapid response and testing for probably CAT scan of the abdomen and probably require consultation for general surgery and general to find out what to do with this large massive hematoma on the side of the abdominal region area. The patient has been having slight increased tightness pain and discomfort significant shortness of breath low-grade temperature mild nausea and change in bowel habit from the symptoms related to her mass swelling discomfort and h ematoma. 05/07 Patient presents because of gradually worsening right side of fluid collection, she states she fell on February 15 going down stairs to her basement holding a chair, she fell on her right side and gradually started getting bigger, today it is very large like occupying most of her right lower abdomen between the flank and the midline. Is not tender, no signs of erythema or swelling. It has a smooth surface She denies any other complaints. Vitals are stable and patient afebrile Labs unremarkable including CBC, BMP and liver enzymes Blood pressure slightly elevated Lactic acid is within the reference range at 1.8, CRP mildly at 1.9 CT of the abdomen and pelvis showing right-sided abdominal fluid collection. Currently she is on normal saline 75 mL/h. Also she was on Eliquis at home for A-fib which is held now for possible drainage of the fluid collection. In the meantime we will put her on subcu heparin Objective - Vital Signs Vital signs: Vital Signs Temp 98.2 F 05/07/24 06:00 Pulse 77 05/07/24 09:17 Resp 20 05/07/24 09:17 BP 124/87 05/07/24 09:17 Pulse Ox 97 05/07/24 09:17 FiO2 Intake & Output 10/17/24 10/18/24 10/18/24 18:59 06:59 18:59 Weight 122.47 kg - Exam GENERAL: The patient is alert and oriented x3, not in any acute distress. Well developed, well nourished. HEENT: Pupils are round and equally reacting to light. EOMI. No scleral icterus. No conjunctival pallor. Normocephalic, atraumatic. No pharyngeal erythema. No thyromegaly. CARDIOVASCULAR: S1 and S2 present. No murmurs, rubs, or gallops. PULMONARY: Chest is clear to auscultation, no wheezing , no crackles. -ABDOMEN: Soft, nontender, nondistended, normoactive bowel sounds. No palpable organomegaly. Large size right side abdominal fluid collection with no signs of erythema or tenderness MUSCULOSKELETAL: No joint swelling or deformity. EXTREMITIES: No cyanosis, clubbing, or pedal edema. NEUROLOGICAL: Gross neurological examination did not reveal any focal deficits. SKIN: No rashes. no petechiae. - Labs CBC & Chem 7: 05/07/24 05:56 05/07/24 05:56 Labs: Abnormal Lab Results - Last 24 Hours (Table) 05/06/24 05/07/24 05/07/24 Range/Units 18:39 05:56 05:56 Plt Count 144 L (150-450) k/uL Potassium 3.4 L (3.5-5.1) mmol/L Carbon Dioxide 31 H (22-30) mmol/L BUN 18 H (7-17) mg/dL Glucose 100 H (74-99) mg/dL C-Reactive Protein 1.9 H (<1.0) mg/dL Total Protein 6.1 L (6.3-8.2) g/dL Assessment and Plan Assessment: _Very large hematoma versus seroma on the abdominal wall area size is over 24 cm time 12 will probably require I@D, will continue antibiotics for now also consulted vascular in case this is hematoma. Possible patient will required IR aspiration through image guidance. Higinio on hold _Arrhythmia and A-fib: Post ablation therapy done by rn clinical resource down within [place] has been doing well. _Hyperlipidemia: Continue Lipitor 20 mg a day. _Hypertension: Remain on metoprolol succinate 150 mg a day continue Dyazide might add losartan. _Mild overflow incontinence: Remain on Sanctura 20 mg a day. _Mild depression: Continue Lexapro 10 mg a day titrate dose higher if needed. _Hiatal hernia and severe GERD: Continue pantoprazole daily. _ Anticoagulation: Patient has been on Eliquis 5 mg twice a day_which should be held for now and prepare for intervention. _DVT prophylaxis: Knee-high VIKKI hose Venodyne boots. CODE STATUS: Full code. Admit patient to the inpatient service for more than 2 night stay.
[2024-05-07] MEDS: POTASSIUM CHLORIDE ER 20 MEQ TAB.ER PO STA (09:49)
--- NOTE | 2024-05-07 10:23 | P.CON ---
Consult Note - . Consult date: 05/07/24 Assessment/Plan:: 63-year-old female presenting for abdominal mass x 3 months status traumatic fall. She States 3 months ago she fell down a flight of stairs, and ever since has had a growing painful mass on the right side of her abdomen. She has been f ollowing with her PCP for this where they told her it is growing in size and sent her to the ER for further evaluation. Patient denies fever, chills, nausea, vomiting. She is on Eliquis. Review of Systems ROS Other: All systems not noted in ROS Statement are negative. Past Medical History Past Medical History: Hyperlipidemia, Hypertension Past Surgical History: Ablation Additional Past Surgical History / Comment(s): benign brain tumor removed Smoking Status: Never smoker Past Alcohol Use History: None Reported Past Drug Use History: None Reported General Exam Limitations: no limitations <Suzy Marin - Last Filed: 05/06/24 16:37> General appearance: alert, in no apparent distress Head exam: Present: atraumatic, normocephalic, normal inspection Eye exam: Present: normal appearance, PERRL, EOMI. Absent: scleral icterus, conjunctival injection, periorbital swelling ENT exam: Present: normal exam, mucous membranes moist Neck exam: Present: normal inspection. Absent: tenderness, meningismus, lymphadenopathy Respiratory exam: Present: normal lung sounds bilaterally. Absent: respiratory distress, wheezes, rales, rhonchi, stridor Cardiovascular Exam: Present: regular rate, normal rhythm, normal heart sounds. Absent: systolic murmur, diastolic murmur, rubs, gallop, clicks GI/Abdominal exam: Present: soft, normal bowel sounds. Absent: distended, tenderness, guarding, rebound, rigid Extremities exam: Present: normal inspection, full ROM, normal capillary refill. Absent: tenderness, pedal edema, joint swelling, calf tenderness Back exam: Present: normal inspection Neurological exam: Present: alert, oriented X3, CN II-XII intact Psychiatric exam: Present: normal affect, normal mood Skin exam: Present: warm, dry, intact, normal color. Absent: rash 63 year old female with abdominal wall fluid collection s/p fall. -IR consult for drainage of collection -F/u cultures of fluid collection -NPO -IV fluids -Pain Control [facility] [phone]
--- NOTE | 2024-05-07 10:45 | P.GSCN ---
History of Present Illness Consult date: 05/07/24 Reason for Consult: Abdominal wall fluid collection Requesting physician: Parish Robledo History of present illness: This a pleasant 63-year-old female with past medical history of recent diagnosis of atrial fibrillation this past December status post cardiac ablation and currently on Eliquis, hypertension, and hyperlipidemia who sustained a fall down her basement stairs sustaining an abdominal wall injury back in January of this year. She states at that time she had a large abrasion and some bruising she was aaliyah ated with 2 rounds of antibiotics which ended in February. The abrasions had healed and bruising had gone away however she had noticed a hardening in her abdominal wall. She had followed up with her PCP office and had seen the nurse practitioner several times and the abdominal wall mass had continued to grow. She states overall her hemoglobin had remained stable that they had been monitoring it and he she had continued on her anticoagulation. The abdominal wall mass has continued to grow which she has been working on her abdomen and she had become concerned and came into the emergency department for further evaluation. She had a CT scan of the abdomen pelvis with contrast which reported a right lateral abdominal wall subcutaneous fluid collection and vascular surgery was consulted for further evaluation. She denies any real abdominal pain, states more like a crampy feeling there. She denies any shortness of breath, chest pain, fevers chills or bodyaches. States bowel movements have been normal. Concerned as it has been progressively getting larger. Last dose of Eliquis was yesterday morning, Eliquis currently on hold. WBC 4.9 hemoglobin 12.0 platelet count 144,000 Review of Systems A 14 point review systems was completed all pertinent positives and negatives as stated in the HPI. Past Medical History Past Medical History: Hyperlipidemia, Hypertension Past Surgical History: Ablation Additional Past Surgical History / Comment(s): benign brain tumor removed Smoking Status: Never smoker Past Alcohol Use History: None Reported Past Drug Use History: None Reported Medications and Allergies Home Medications Medication Instructions Recorded Confirmed Type Apixaban [Eliquis] 5 mg PO BID 05/06/24 05/06/24 History Atorvastatin [Lipitor] 20 mg PO Q48H 05/06/24 05/06/24 History EPINEPHrine (Auto Inject) [Epipen] 0.3 mg IM ONCE PRN 05/06/24 05/06/24 History Escitalopram [Lexapro] 10 mg PO HS 05/06/24 05/06/24 History Fexofenadine HCl [Conchita Allergy] 180 mg PO HS 05/06/24 05/06/24 History Metoprolol Succinate (ER) [Toprol 150 mg PO HS 05/06/24 05/06/24 History Xl] Multivitamins, Thera [Multivitamin 1 tab PO HS 05/06/24 05/06/24 History (formulary)] Potassium Chloride ER [K-Dur 10] 10 meq PO MOTUWETHFR 05/06/24 05/06/24 History Solifenacin Succinate [Vesicare] 5 mg PO HS 05/06/24 05/06/24 History Triamterene/Hydrochlorothiazid 1 cap PO HS 05/06/24 05/06/24 History [Triamterene-Hctz 37.5-25 mg Cp] Vit C/E/Zn/Coppr/Lutein/Zeaxan 1 cap PO HS 05/06/24 05/06/24 History [Preservision Areds 2 Softgel] Allergies Allergy/AdvReac Type Severity Reaction Status Date / Time bee venom protein (honey bee) Allergy Swelling Verified 05/06/24 19:59 bees Allergy Swelling Uncoded 05/06/24 19:59 Surgical - Exam Vital Signs Temp Pulse Resp BP Pulse Ox 98.2 F 88 18 113/74 96 05/06/24 16:22 05/06/24 16:22 05/06/24 16:22 05/06/24 16:22 05/06/24 16:22 General appearance: The patient is alert, oriented, appears in no acute distress. HET: Head is normocephalic and atraumatic. Neck: Supple. Heart: Regular. Lungs: Equal expansion, normal respiratory effort. Abdomen: Large right sided abdominal mass with area of tenderness to palpation, no ecchymosis noted, rest of abdomen soft and nondistended. Extremities: Normal skin color and turgor. Palpable femoral pulses. Neurological: No focal deficits. Strength and sensation are grossly intact. Results - Labs 05/07/24 05:56 05/07/24 05:56 Abnormal Lab Results - Last 24 Hours (Table) 05/06/24 05/07/24 05/07/24 Range/Units 18:39 05:56 05:56 Plt Count 144 L (150-450) k/uL Potassium 3.4 L (3.5-5.1) mmol/L Carbon Dioxide 31 H (22-30) mmol/L BUN 18 H (7-17) mg/dL Glucose 100 H (74-99) mg/dL C-Reactive Protein 1.9 H (<1.0) mg/dL Total Protein 6.1 L (6.3-8.2) g/dL Diabetes panel 05/06/24 05/07/24 Range/Units 18:39 05:56 Sodium 141 137 (137-145) mmol/L Potassium 3.5 3.4 L (3.5-5.1) mmol/L Chloride 103 106 (98-107) mmol/L Carbon Dioxide 31 H 28 (22-30) mmol/L BUN 18 H 15 (7-17) mg/dL Creatinine 0.89 0.78 (0.52-1.04) mg/dL Glucose 97 100 H (74-99) mg/dL Calcium 9.2 8.8 (8.4-10.2) mg/dL AST 33 27 (14-36) U/L ALT 25 21 (4-34) U/L Alkaline Phosphatase 97 91 (38-126) U/L Total Protein 6.9 6.1 L (6.3-8.2) g/dL Albumin 4.4 3.7 (3.5-5.0) g/dL Calcium panel 05/06/24 05/07/24 Range/Units 18:39 05:56 Calcium 9.2 8.8 (8.4-10.2) mg/dL Phosphorus 4.1 (2.5-4.5) mg/dL Albumin 4.4 3.7 (3.5-5.0) g/dL Pituitary panel 05/06/24 05/07/24 Range/Units 18:39 05:56 Sodium 141 137 (137-145) mmol/L Potassium 3.5 3.4 L (3.5-5.1) mmol/L Chloride 103 106 (98-107) mmol/L Carbon Dioxide 31 H 28 (22-30) mmol/L BUN 18 H 15 (7-17) mg/dL Creatinine 0.89 0.78 (0.52-1.04) mg/dL Glucose 97 100 H (74-99) mg/dL Calcium 9.2 8.8 (8.4-10.2) mg/dL Adrenal panel 05/06/24 05/07/24 Range/Units 18:39 05:56 Sodium 141 137 (137-145) mmol/L Potassium 3.5 3.4 L (3.5-5.1) mmol/L Chloride 103 106 (98-107) mmol/L Carbon Dioxide 31 H 28 (22-30) mmol/L BUN 18 H 15 (7-17) mg/dL Creatinine 0.89 0.78 (0.52-1.04) mg/dL Glucose 97 100 H (74-99) mg/dL Calcium 9.2 8.8 (8.4-10.2) mg/dL Total Bilirubin 0.9 0.8 (0.2-1.3) mg/dL AST 33 27 (14-36) U/L ALT 25 21 (4-34) U/L Alkaline Phosphatase 97 91 (38-126) U/L Total Protein 6.9 6.1 L (6.3-8.2) g/dL Albumin 4.4 3.7 (3.5-5.0) g/dL - Imaging Comments: Right lateral abdominal wall subcutaneous simple density fluid collection measuring up to 20.4 x 11.0 x 13.8 cm. No acute abdominal process. Suspected XL phytic calcified degenerating fibroid anterior to uterus. Assessment and Plan Assessment: 1. Abdominal wall fluid mass, likely hematoma from previous injury 2. Atrial fibrillation on anticoagulation Plan: 1. Hold Eliquis 2. Consult to interventional radiology for drainage of fluid collection, cultures and drain placement. If the interventional radiology unable to perform, patient would like to be transferred to [facility] for IR consultation and treatment 3. Rest of medical management per primary medical team Thank you for this consultation, we will continue to follow. The impression and plan of care has been dictated as directed. I performed a history and examination of this patient, discussed the same with the dictator. I agree with the dictator's note ,documented as a scribe. Any additional findings or plans will be noted.
[2024-05-07 11:14] LABS: Prothrombin Time 11.3 sec (10.0-12.5)
--- NOTE | 2024-05-07 13:18 | US ---
ULTRASOUND GUIDED DRAINAGE CATHETER INSERTION: CLINICAL HISTORY: History of trauma and suspected right subcutaneous hematoma FINDINGS: The procedure was explained to the patient. The risks, complications, benefits and alternatives were discussed and any questions were answered. Informed consent was obtained. Patient was placed supin e on the ultrasound table and prepped and draped in the usual sterile fashion. Utilizing a 8.5 Frenc h drainage catheter trocar system access into the large subcutaneous complicated collection was achie elana and there is removal of approximately 1200 of brown-colored serous fluid likely representing detective private eye niesha hematoma.. Patient was stable throughout the procedure. Pathology is pending. All elements of maximal barrier and sterile technique were utilized. IMPRESSION: 1. Successful ultrasound guided subcutaneous anterior abdominal wall drainage catheter insertion. [facility], , 05/07/2024 1:16 PM
[2024-05-07] MEDS: HEPARIN SODIUM,PORCINE 5,000 UNIT/ML 1 ML VIAL SQ SCH (21:55)
[2024-05-07] MEDS: ACETAMINOPHEN TAB 325 MG TAB PO PRN (22:09)
--- NOTE | 2024-05-08 10:39 | P.PN ---
Progress Note - Text Progress Note Date: 05/08/24 RICARDO. Patient resting in bed comfortable. Pain is controlled VSS General-NAD Abdomen-soft, NTND, no guarding 63 year old female with abdominal wall fluid collection with history of fall s/p IR drainage -Regular Diet -F/u cultures of fluid collection -IV fluids -Pain Control -No acute surgical intervention planned Colt Steward DO [facility] [phone]
--- NOTE | 2024-05-08 15:08 | P.PN ---
Subjective 63-year-old with past medical history of arrhythmia with atrial fibrillation, hypertension, hyperlipidemia, post ablation therapy who also has mild history of osteoarthritis was seen in the office for 2 weeks ago after sustaining a fall to the side with mild trauma creating slight hematoma on the side of her rib cage and abdominal area. She had a trip to [place] which patient has done and through the last 2 weeks has been having significant increase in size and swelling and discomfort on the right abdominal area. Was seen and evaluated today found to have very large mass which appeared to be either hematoma or large growth related to hematoma or trauma on the side. With a slight discomfort and with patient history decided to send him to the emergency department for rapid response and testing for probably CAT scan of the abdomen and probably require consultation for general surgery and general to find out what to do with this large massive hematoma on the side of the abdominal region area. The patient has been having slight increased tightness pain and discomfort significant shortness of breath low-grade temperature mild nausea and change in bowel habit from the symptoms related to her mass swelling discomfort and h ematoma. 05/07 Patient presents because of gradually worsening right side of fluid collection, she states she fell on February 15 going down stairs to her basement holding a chair, she fell on her right side and gradually started getting bigger, today it is very large like occupying most of her right lower abdomen between the flank and the midline. Is not tender, no signs of erythema or swelling. It has a smooth surface She denies any other complaints. Vitals are stable and patient afebrile Labs unremarkable including CBC, BMP and liver enzymes Blood pressure slightly elevated Lactic acid is within the reference range at 1.8, CRP mildly at 1.9 CT of the abdomen and pelvis showing right-sided abdominal fluid collection. Currently she is on normal saline 75 mL/h. Also she was on Eliquis at home for A-fib which is held now for possible drainage of the fluid collection. In the meantime we will put her on subcu heparin 05/08 Patient status evacuation of her right abdominal hematoma with 1200 mL taken out of dark-colored blood Catheter kept in place and draining about 200 and later 100 mL of same amount of blood We will check hemoglobin tomorrow. Potassium was low yesterday we will check again tomorrow Objective - Vital Signs Vital signs: Vital Signs Temp 97.5 F L 05/08/24 11:45 Pulse 81 05/08/24 11:45 Resp 16 05/08/24 11:45 BP 114/73 05/08/24 11:45 Pulse Ox 98 05/08/24 11:45 FiO2 Intake & Output 05/07/24 05/08/24 05/08/24 18:59 06:59 18:59 Intake Total 222 236 Output Total 190 130 Balance 222 -190 106 Weight 121.8 kg Intake: Oral 222 236 Output: Drainage 190 130 Right Abdomen 190 130 Other: Voiding Method Toilet Toilet # Voids 1 # Bowel Movements 1 - Exam GENERAL: The patient is alert and oriented x3, not in any acute distress. Well developed, well nourished. HEENT: Pupils are round and equally reacting to light. EOMI. No scleral icterus. No conjunctival pallor. Normocephalic, atraumatic. No pharyngeal erythema. No thyromegaly. CARDIOVASCULAR: S1 and S2 present. No murmurs, rubs, or gallops. PULMONARY: Chest is clear to auscultation, no wheezing , no crackles. -ABDOMEN: Soft, nontender, nondistended, normoactive bowel sounds. No palpable organomegaly. Large size right side abdominal fluid collection with no signs of erythema or tenderness MUSCULOSKELETAL: No joint swelling or deformity. EXTREMITIES: No cyanosis, clubbing, or pedal edema. NEUROLOGICAL: Gross neurological examination did not reveal any focal deficits. SKIN: No rashes. no petechiae. - Labs CBC & Chem 7: 05/07/24 05:56 05/07/24 05:56 Assessment and Plan Assessment: _Very large hematoma versus seroma on the abdominal wall area size is over 24 cm time 12 will probably require I@D, will continue antibiotics for now also consulted vascular in case this is hematoma. Possible patient will required IR aspiration through image guidance. Higinio on hold. Status post IR procedure with ultrasound-guided aspiration of 1200 of blood from her hematoma and drain kept in place _Arrhythmia and A-fib: Post ablation therapy done by fleet assistant down within [place] has been doing well. _Hyperlipidemia: Continue Lipitor 20 mg a day. _Hypertension: Remain on metoprolol succinate 150 mg a day continue Dyazide might add losartan. _Mild overflow incontinence: Remain on Sanctura 20 mg a day. _Mild depression: Continue Lexapro 10 mg a day titrate dose higher if needed. _Hiatal hernia and severe GERD: Continue pantoprazole daily. _ Anticoagulation: Patient has been on Eliquis 5 mg twice a day_which should be held for now and prepare for intervention. _DVT prophylaxis: Knee-high VIKKI hose Venodyne boots. CODE STATUS: Full code. Admit patient to the inpatient service for more than 2 night stay.
--- NOTE | 2024-05-09 05:28 | P.PN ---
Progress Note - Text Progress Note Date: 05/09/24 RICARDO. Patient resting in bed comfortable. Pain is controlled VSS General-NAD Abdomen-soft, NTND, no guarding 63 year old female with abdominal wall hematoma with history of fall s/p IR drainage -Regular Diet -Check AM Hemoglobin -F/u cultures of fluid collection -IV fluids -Pain Control -No acute surgical intervention planned Colt Steward DO [facility] [phone]
[2024-05-09 07:56] LABS: Hypochromasia Slight; MCH 29.3 pg (25.0-35.0); MCHC 31.6 g/dL (31.0-37.0); MCV 92.7 fL (80.0-100.0); Mean Platelet Volume 7.5; Platelet Count 168 k/uL (150-450); RDW 14.6 % (11.5-15.5); WBC 5.1 k/uL (3.8-10.6)
[2024-05-09 08:17] LABS: African American GFR (CKD) >90 (>60 ml/min/1.73 sqM); Anion Gap 6 mmol/L; Blood Urea Nitrogen 12 mg/dL (7-17); Calcium 8.8 mg/dL (8.4-10.2); Carbon Dioxide 27 mmol/L (22-30); Chloride 106 mmol/L (98-107); Glucose 95 mg/dL (74-99); Non-African American GFR(CKD) 86 (>60 ml/min/1.73 sqM); Sodium 139 mmol/L (137-145)
--- NOTE | 2024-05-09 15:30 | P.PN ---
Subjective 63-year-old with past medical history of arrhythmia with atrial fibrillation, hypertension, hyperlipidemia, post ablation therapy who also has mild history of osteoarthritis was seen in the office for 2 weeks ago after sustaining a fall to the side with mild trauma creating slight hematoma on the side of her rib cage and abdominal area. She had a trip to [place] which patient has done and through the last 2 weeks has been having significant increase in size and swelling and discomfort on the right abdominal area. Was seen and evaluated today found to have very large mass which appeared to be either hematoma or large growth related to hematoma or trauma on the side. With a slight discomfort and with patient history decided to send him to the emergency department for rapid response and testing for probably CAT scan of the abdomen and probably require consultation for general surgery and general to find out what to do with this large massive hematoma on the side of the abdominal region area. The patient has been having slight increased tightness pain and discomfort significant shortness of breath low-grade temperature mild nausea and change in bowel habit from the symptoms related to her mass swelling discomfort and h ematoma. 05/07 Patient presents because of gradually worsening right side of fluid collection, she states she fell on February 15 going down stairs to her basement holding a chair, she fell on her right side and gradually started getting bigger, today it is very large like occupying most of her right lower abdomen between the flank and the midline. Is not tender, no signs of erythema or swelling. It has a smooth surface She denies any other complaints. Vitals are stable and patient afebrile Labs unremarkable including CBC, BMP and liver enzymes Blood pressure slightly elevated Lactic acid is within the reference range at 1.8, CRP mildly at 1.9 CT of the abdomen and pelvis showing right-sided abdominal fluid collection. Currently she is on normal saline 75 mL/h. Also she was on Eliquis at home for A-fib which is held now for possible drainage of the fluid collection. In the meantime we will put her on subcu heparin 05/08 Patient status evacuation of her right abdominal hematoma with 1200 mL taken out of dark-colored blood Catheter kept in place and draining about 200 and later 100 mL of same amount of blood We will check hemoglobin tomorrow. Potassium was low yesterday we will check again tomorrow 05/09 Patient still draining blood from her abdomen large cyst. However it is coming down less than yesterday. No abdominal pain Body fluid culture still pending as well. Patient's wants to go home when this is done Eliquis remains on hold as she is still blood coming out of the drain Objective - Vital Signs Vital signs: Vital Signs Temp 98.1 F 05/09/24 12:16 Pulse 82 05/09/24 12:16 Resp 16 05/09/24 12:16 BP 129/85 05/09/24 12:16 Pulse Ox 96 05/09/24 12:16 FiO2 Intake & Output 05/08/24 05/09/24 05/09/24 18:59 06:59 18:59 Intake Total 476 366 Output Total 200 70 40 Balance 276 -70 326 Weight 122.8 kg Intake: IV 10 Invasive Line 2 10 Oral 476 356 Output: Drainage 200 70 40 Right Abdomen 200 70 40 Other: Voiding Method Toilet Toilet Toilet # Voids 2 2 # Bowel Movements 1 - Exam GENERAL: The patient is alert and oriented x3, not in any acute distress. Well developed, well nourished. HEENT: Pupils are round and equally reacting to light. EOMI. No scleral icterus. No conjunctival pallor. Normocephalic, atraumatic. No pharyngeal erythema. No thyromegaly. CARDIOVASCULAR: S1 and S2 present. No murmurs, rubs, or gallops. PULMONARY: Chest is clear to auscultation, no wheezing , no crackles. -ABDOMEN: Soft, nontender, nondistended, normoactive bowel sounds. No palpable organomegaly. Large size right side abdominal fluid collection with no signs of erythema or tenderness MUSCULOSKELETAL: No joint swelling or deformity. EXTREMITIES: No cyanosis, clubbing, or pedal edema. NEUROLOGICAL: Gross neurological examination did not reveal any focal deficits. SKIN: No rashes. no petechiae. - Labs CBC & Chem 7: 05/09/24 07:16 05/09/24 07:16 Labs: Microbiology - Last 24 Hours (Table) 05/07/24 12:25 Gram Stain - Preliminary Ascites Fluid Body Fluid Culture - Preliminary Assessment and Plan Assessment: _Very large hematoma versus seroma on the abdominal wall area size is over 24 cm time 12 will probably require I@D, will continue antibiotics for now also consulted vascular in case this is hematoma. Possible patient will required IR aspiration through image guidance. Eliquis on hold. Status post IR procedure with ultrasound-guided aspiration of 1200 of blood from her hematoma and drain kept in place _Arrhythmia and A-fib: Post ablation therapy done by disc ruler operator down within [place] has been doing well. _Hyperlipidemia: Continue Lipitor 20 mg a day. _Hypertension: Remain on metoprolol succinate 150 mg a day continue Dyazide might add losartan. _Mild overflow incontinence: Remain on Sanctura 20 mg a day. _Mild depression: Continue Lexapro 10 mg a day titrate dose higher if needed. _Hiatal hernia and severe GERD: Continue pantoprazole daily. _ Anticoagulation: Patient has been on Eliquis 5 mg twice a day_which should be held for now and prepare for intervention. _DVT prophylaxis: Knee-high VIKKI hose Venodyne boots. CODE STATUS: Full code. Admit patient to the inpatient service for more than 2 night stay.
[2024-05-10 07:34] VITALS: BP 120/77; PULSE 67; RESP 15; TEMP 97
--- NOTE | 2024-05-10 11:13 | P.PN ---
Subjective Progress Note Date: 05/10/24 CHIEF COMPLAINT: Abdominal wall hematoma HISTORY OF PRESENT ILLNESS: Patient with abdominal wall hematoma status post IR drain placement. Patient reports her pain has improved. She is ambulating. She is tolerating diet. She is afebrile. Hemoglobin stable at 12. Fluid culture pending. PHYSICAL EXAM: VITAL SIGNS: Reviewed. GENERAL: Well-developed in no acute distress. ABDOMEN: Soft. Nondistended. Nontender. IR drain in place with sanguinous output NEUROLOGIC: Alert and oriented. Cranial nerves II through XII grossly intact. ASSESSMENT: 1. 63 year old female with abdominal wall hematoma with history of fall s/p IR drainage PLAN: -Patient can be discharged from surgical standpoint -No surgical intervention planned -Patient to be discharged with drain Physician Application Infrastructure Engineer note has been reviewed by physician. Signing provider agrees with the documented findings, assessment, and plan of care. Attestation Patient seen and examined at bedside. Status post IR drainage of abdominal wall hematoma. No surgical intervention planned at this time. She appears to be doing really well. Surgically stable for discharge. Eugene Pham DO Objective - Vital Signs Vital signs: Vital Signs Temp 97.0 F L 05/10/24 07:33 Pulse 67 05/10/24 07:33 Resp 15 05/10/24 07:33 BP 120/77 05/10/24 07:33 Pulse Ox 97 05/10/24 07:33 FiO2 Intake & Output 05/09/24 05/10/24 05/10/24 18:59 06:59 18:59 Intake Total 846 118 Output Total 70 Balance 776 118 Intake: IV 10 Invasive Line 2 10 Oral 836 118 Output: Drainage 70 Right Abdomen 70 Other: Voiding Method Toilet Toilet Toilet # Voids 2 1 - Labs CBC & Chem 7: 05/09/24 07:16 05/09/24 07:16 Labs: Microbiology - Last 24 Hours (Table) 05/07/24 12:25 Gram Stain - Preliminary Ascites Fluid Body Fluid Culture - Preliminary
--- NOTE | 2024-05-10 12:17 | P.PN ---
Subjective Progress Note Date: 05/10/24 Principal diagnosis: Abdominal wall hematoma Patient is seen and examined today as a follow-up. Friday she was seen by interventional radiology and he had about 1300 cc of bloody fluid drainage from her abdomen and catheter drain was left in place. She continues to get send da rk blood draining from catheter. States she did not have much out yesterday and through the night however after getting up and walking today she has had about 200 mL out. She states abdominal pain has improved as well as swelling. States she is feeling much better. Hemoglobin has been stable. Fluid cultures currently no growth at 48 hours. Objective - Vital Signs Vital signs: Vital Signs Temp 97.0 F L 05/10/24 07:33 Pulse 67 05/10/24 07:33 Resp 15 05/10/24 07:33 BP 120/77 05/10/24 07:33 Pulse Ox 97 05/10/24 07:33 FiO2 Intake & Output 05/09/24 05/10/24 05/10/24 18:59 06:59 18:59 Intake Total 846 Output Total 70 Balance 776 Intake: IV 10 Invasive Line 2 10 Oral 836 Output: Drainage 70 Right Abdomen 70 Other: Voiding Method Toilet Toilet Toilet # Voids 2 - Exam General appearance: The patient is alert, oriented, appears in no acute distress. HET: Head is normocephalic and atraumatic. Pupils are equal and reactive. Neck: Supple. Heart: Regular. Lungs: Equal expansion, normal respiratory effort. Abdomen: Soft, nontender, nondistended. Right side of abdomen mass has dec reased in size significantly. Soft, drainage catheter in place and hooked up to bag. Extremities: Normal skin color and turgor. Neurological: No focal deficits. Strength and sensation are grossly intact. - Labs CBC & Chem 7: 05/09/24 07:16 05/09/24 07:16 Labs: Microbiology - Last 24 Hours (Table) 05/07/24 12:25 Gram Stain - Preliminary Ascites Fluid Body Fluid Culture - Preliminary Assessment and Plan Assessment: 1. Abdominal wall fluid mass, likely hematoma from previous injury status post interventional radiology drainage and catheter placement 2. Atrial fibrillation on anticoagulation Plan: 1. May resume Eliquis 2. Consult to interventional radiology for drainage of fluid collection, cultures and drain placement. Patient to be discharged with abdominal catheter in place. 3. Patient is going to follow-up with her PCP this week. Recommend follow-up with vascular surgeon next week Thank you for this consultation, we will continue to follow. The impression and plan of care has been dictated as directed. I performed a history and examination of this patient, discussed the same with the dictator. I agree with the dictator's note ,documented as a scribe. Any additional findings or plans will be noted.
--- NOTE | 2024-05-11 06:25 | P.DS ---
Providers Date of admission: 05/06/24 20:31 Attending physician: [place] Pyle Consults: 05/06/24 20:29 Consult Physician Routine Consulting Provider: Temo Martínez Consult Reason/Comments: abd wall fluid collect Do you want consulting provider notified?: Yes Consult Physician Routine Consulting Provider: Colt Steward Consult Reason/Comments: abd wall fluid collect Do you want consulting provider notified?: Yes Primary care physician: [facility] Course: HISTORY OF PRESENT ILLNESS: 63-year-old with past medical history of arrhythmia with atrial fibrillation, hypertension, hyperlipidemia, post ablation therapy who also has mild history of osteoarthritis was seen in the office for 2 weeks ago after sustaining a fall to the side with mild trauma creating slight hematoma on the side of her rib cage and abdominal area. She had a trip to [place] which patient has done and through the last 2 weeks has been having significant increase in size and swelli ng and discomfort on the right abdominal area. Was seen and evaluated today found to have very large mass which appeared to be either hematoma or large growth related to hematoma or trauma on the side. With a slight discomfort and with patient history decided to send him to the emergency department for rapid response and testing for probably CAT scan of the abdomen and probably require consultation for general surgery and general to find out what to do with this large massive hematoma on the side of the abdominal region area. The patient has been having slight increased tightness pain and discomfort significant shortness of breath low-grade temperature mild nausea and change in bowel habit from the symptoms related to her mass swelling discomfort and hematoma. 05/10/2024: Patient has been in the hospital since the 06 of May end up having IR drainage from the large hematoma in the right sided abdominal area, Through the last 2 days has been doing very well no abdominal pain culture from the site came back negative so far. Still holding Eliquis and drainage still bloody to some degree. Vitals are stable platelet count improved she had quite thrombocytopenia early but corrected back to normal yesterday GFR up to 95 as well. She is very stable if drainage. Patient should be able to be discharged home. REVIEW OF SYSTEMS: CONSTITUTIONAL: Well-developed no acute respiratory distress. EYES: No icterus sclerae, no conjunctivitis. EARS, NOSE, MOUTH, THROAT, and FACE: No sore throat, lymphadenopathy, carotid bruits or deformity. RESPIRATORY: Mild shortness of breath no cough or wheezes. CARDIOVASCULAR: No CP, positive palpitation, PND, Orthopnea, or angina. GASTROINTESTINAL: No Abd pain, Nausea or vomiting, no Diarrhea or constipation, No GI Bleed, no distention or masses. Large hematoma on the right side of the abdominal wall area. GENITOURINARY: Negative for Hematuria or UTI, no kidney stones. INTEGUMENT/BREAST: Negative for any muscular injury with mild osteoarthritis.. HEMATOLOGIC/LYMPHATIC: Negative for bleed or purpura. MUSCULOSKELTAL: Negative for Myalgia or arthralgia. NEURLOGICAL: No LOC, Sz or syncope, blurred vision dizziness or abnormality.. BEHAVIORAL/PSYCH: Negative. ENDOCRINE: Negative. PHYSICAL EXAMINATION: General Appearance: Alert, cooperative, no distress, appears stated age. Neck HEENT: Supple, no lymphadenopathy, no thyroid enlargement, no carotid bruits. Lungs: Clear to auscultation without crackles or wheezes no rhonchi, no deformity. Chest Wall: Chest wall normal expansion with deep inspiration no tenderness and no deformity was found on exam, no costochondral pain or discomfort. Heart: Regular rate and rhythm, S1, S2 normal, no murmur, rub or gallop. Back: Symmetric, no curvature, ROM normal, no CVA tenderness. Abdomen: Soft, non-tender, bowel sounds active all four quadrants, very large mass with shifting dullness sign of the right upper abdominal area. Extremities: Extremities normal, atraumatic, no cyanosis or edema. Pulses: 2+ and symmetric. Skin: Skin color, texture, tugor normal, no rashes or lesions. Neurologic: Alert oriented x3 cranial nerves II through XII intact, no motor deficit, no abnormal balance or gait. ASSESSMENT AND PLAN: _Very large hematoma versus seroma on the abdominal wall area size is over 24 cm time 12 will probably require I@D, she was seen general surgery and had interventional radiologist put a drain tube in and seroma and hematoma has been drained all along since Friday the . Continue to have significant amount of blood drained and her collection bag but doing much better will be able probably to be discharged home to keep the drainage tube in for the next few days. _Arrhythmia and A-fib: Post ablation therapy done by almond blancher down within [place] has been doing well. _Hyperlipidemia: Continue Lipitor 20 mg a day. _Hypertension: Remain on metoprolol succinate 150 mg a day continue Dyazide might add losartan. _Mild overflow incontinence: Remain on Sanctura 20 mg a day. _Mild depression: Continue Lexapro 10 mg a day titrate dose higher if needed. _Hiatal hernia and severe GERD: Continue pantoprazole daily. _ Anticoagulation: Patient has been on Eliquis 5 mg twice a day_which should be held for now until next week. Discussion: No infection was found but large hematoma and seroma with the interventional radiologist drain placement with the collection system and it works out really good but continue to have significant drainage at this point continue dressing the patient to move should be able to be discharged home to be seen back in the office in the next few days and to be seen by vascular in a few days as well. Hospital course: The patient was seen in the office on May 06 with large massive hematoma and seroma of the right side of the abdominal wall area larger than expected start causing slight compression and discomfort end up sending patient to the emergency department were seen and evaluated had a CAT scan shows size of hematoma of 24 time 12 cm. Patient was kept in the hospital had vascular consultation and interventional radiology consultation. Patient ended up going for drain by interventional radiologist in the larger area of her seroma was connected with collection system continue having significant drainage for the following few days. Analysis of the fluid came back negative for any infection requiring antibiotics. Her blood test did not show any significant change in white blood cell or electrolyte secondary she had slight thrombocytopenia only but improved and mild hypokalemia again had improved. Patient is stable to be discharged home we will keep her on the drainage tube until seen back in the office and seen vascular probably drainage tube can be removed in the office sometime late this week if she is not having any further drainage. Time spent on patient discharge was over 32 minutes. Patient Condition at Discharge: Fair Plan - Discharge Summary Discharge Rx Participant: No New Discharge Prescriptions: Continue Fexofenadine HCl [Conchita Allergy] 180 mg PO HS Multivitamins, Thera [Multivitamin (formulary)] 1 tab PO HS Potassium Chloride ER [K-Dur 10] 10 meq PO MOTUWETHFR Solifenacin Succinate [Vesicare] 5 mg PO HS Apixaban [Eliquis] 5 mg PO BID #0 Atorvastatin [Lipitor] 20 mg PO Q48H EPINEPHrine (Auto Inject) [Epipen] 0.3 mg IM ONCE PRN PRN Reason: Anaphylaxis Escitalopram [Lexapro] 10 mg PO HS Metoprolol Succinate (ER) [Toprol XL] 150 mg PO HS Triamterene/Hydrochlorothiazid [Triamterene-Hctz 37.5-25 mg Cp] 1 cap PO HS Vit C/E/Zn/Coppr/Lutein/Zeaxan [Preservision Areds 2 Softgel] 1 cap PO HS Discharge Medication List Atorvastatin [Lipitor] 20 mg PO Q48H 05/06/24 [History] EPINEPHrine (Auto Inject) [Epipen] 0.3 mg IM ONCE PRN 05/06/24 [History] Escitalopram [Lexapro] 10 mg PO HS 05/06/24 [History] Fexofenadine HCl [Conchita Allergy] 180 mg PO HS 05/06/24 [History] Metoprolol Succinate (ER) [Toprol XL] 150 mg PO HS 05/06/24 [History] Multivitamins, Thera [Multivitamin (formulary)] 1 tab PO HS 05/06/24 [History] Potassium Chloride ER [K-Dur 10] 10 meq PO MOTUWETHFR 05/06/24 [History] Solifenacin Succinate [Vesicare] 5 mg PO HS 05/06/24 [History] Triamterene/Hydrochlorothiazid [Triamterene-Hctz 37.5-25 mg Cp] 1 cap PO HS 05/06/24 [History] Vit C/E/Zn/Coppr/Lutein/Zeaxan [Preservision Areds 2 Softgel] 1 cap PO HS 05/06/24 [History] Apixaban [Eliquis] 5 mg PO BID #0 05/10/24 [Rx] Follow up Appointment(s)/Referral(s): Brendan Suárez DO [STAFF PHYSICIAN] - 05/18/24 1:15 pm [place] Pyle MD [Primary Care Provider] - 1-2 days Patient Instructions/Handouts: Abdominal Pain (ED), How to Care for Your Chest or Abdominal Catheter (DC) Discharge Disposition: HOME SELF-CARE
== END 2024-05-10 15:05 | disposition home or self-care (01) | DRG 605 ==
LOC: EC 16:16 → 5NMEDONC 20:31 → 3SCARD 21:42 → 6NMEDSUR 05-10 01:47
PROVIDERS: ADMIT Internal Medicine Geriatric Medicine; ATTEND Internal Medicine Geriatric Medicine
PROC: 0W9F30Z Drainage of Abdominal Wall with Drainage Device, Percutaneous Approach (ICD-10-PCS; principal; 2024-05-07)
DX: S30.1XXA Contusion of abdominal wall, initial encounter (principal); E87.20 Acidosis, unspecified; D69.6 Thrombocytopenia, unspecified; F32.A Depression, unspecified; E78.5 Hyperlipidemia, unspecified; I10 Essential (primary) hypertension; I48.91 Unspecified atrial fibrillation; K21.9 Gastro-esophageal reflux disease without esophagitis; K44.9 Diaphragmatic hernia without obstruction or gangrene; N39.490 Overflow incontinence; W10.9XXA Fall (on) (from) unspecified stairs and steps, initial encounter; Z79.01 Long term (current) use of anticoagulants; Z79.899 Other long term (current) drug therapy; Z86.011 Personal history of benign neoplasm of the brain; Z28.21 Immunization not carried out because of patient refusal
CPT/HCPCS: 10030; 36415; 74177; 76942; 80048; 80053; 83605; 83735; 84100; 85025; 85027; 85610; 86140; 87070; 87075; 87205; 96360; 96361; 99285

== ENCOUNTER → 2024-05-28 | Outpatient (CLI) | payer MEDICARE ==
--- NOTE | 2024-05-28 10:24 | US ---
EXAMINATION TYPE: US abdomen complete DATE OF EXAM: 05/28/2024 COMPARISON: CT 05/06/2024 CLINICAL INDICATION: Female, 64 years old with history of S30.1XXD CONTUSION OF ABDOMINAL WALL, SUBSE QUENT E; Patient states she fell a couple months ago and ended up with a large hematoma in RLQ, patie nt had it drained 05/07/2024 and drainage tube was removed 1 week ago FINDINGS/IMPRESSION: Within the right lower quadrant abdominal wall is a 12.1 x 5.1 x 14.4 cm complex collection without internal color flow. Previously measured 20.4 x 11.0 [address] Favored to represent a hematoma. No hyperemia identified. Abscess is not entirely excluded. [facility], , 05/28/2024 10:21 AM
== END | disposition home or self-care (01) ==
LOC: RADUSWWP 09:42
PROVIDERS: ATTEND Internal Medicine Geriatric Medicine
DX: S30.1XXD Contusion of abdominal wall, subsequent encounter (principal)
CPT/HCPCS: 76705

== ENCOUNTER 2024-05-30 06:24 | Inpatient (IN) | payer MEDICARE ==
--- NOTE | 2024-05-30 08:04 | ED ---
General Adult HPI - General Chief complaint: Recheck/Abnormal Lab/Rx Stated complaint: abd hematoma Time Seen by Provider: 05/30/24 07:35 Source: patient, RN notes reviewed, old records reviewed Mode of arrival: ambulatory Limitations: no limitations - History of Present Illness Initial comments: Patient is a 64-year-old female who presents emergency department complaining of fevers, nasal congestion, as well as what she is concerned with his reexpanding hematoma over the right abdominal wall. Approximately 3 weeks ago had IR drainage of a hematoma following a fall at that point. She is discharged home with a drain in place which was removed approximately 1 week ago. Has been on oral doxycycline since that time. The area seems to have reaccumulated fluid of unknown etiology and is now warm and once again tender to touch. Patient denies any significant cough. Denies any urinary complaints. Endorses mild nausea from the pain but otherwise no acute complaints. States Tmax at home was over 101 F. No known sick contacts. Was instructed to follow-up with vascular surgery as they are uncertain the cause of the hematoma as well as return to the ER if pain or symptoms worsen. They worsen which is why she presents today for evaluation. Patient is on Eliquis for atrial fibrillation however patient has been off Eliquis since earlier last week Friday or Friday as they noticed that there was swelling reaccumulating at the site. She was concerned it was bleeding again which is why she took herself off of it.Patient last took Tylenol approximately an hour and a half prior to arrival.Patient states that she feels the area on her right abdomen has been reaccumulating over the last multiple days since the drain was removed. - Related Data Home Medications Medication Instructions Recorded Confirmed Atorvastatin [Lipitor] 20 mg PO MOWEFR 05/06/24 05/30/24 EPINEPHrine (Auto Inject) [Epipen] 0.3 mg IM ONCE PRN 05/06/24 05/30/24 Escitalopram [Lexapro] 10 mg PO HS 05/06/24 05/30/24 Fexofenadine HCl [Conchita Allergy] 180 mg PO HS 05/06/24 05/30/24 Metoprolol Succinate (ER) [Toprol 150 mg PO HS 05/06/24 05/30/24 XL] Multivitamins, Thera [Multivitamin 1 tab PO HS 05/06/24 05/30/24 (formulary)] Potassium Chloride ER [K-Dur 10] 10 meq PO MOTUWETHFR 05/06/24 05/30/24 Solifenacin Succinate [Vesicare] 5 mg PO HS 05/06/24 05/30/24 Triamterene/Hydrochlorothiazid 1 cap PO HS 05/06/24 05/30/24 [Triamterene-Hctz 37.5-25 mg Cp] Vit C/E/Zn/Coppr/Lutein/Zeaxan 1 cap PO HS 05/06/24 05/30/24 [Preservision Areds 2 Softgel] Doxycycline Hyclate 100 mg PO BID 05/30/24 05/30/24 Allergies Allergy/AdvReac Type Severity Reaction Status Date / Time bee venom protein (honey bee) Allergy Swelling Verified 05/30/24 11:56 bees Allergy Swelling Uncoded 05/30/24 07:38 Review of Systems ROS Statement: Those systems with pertinent positive or pertinent negative responses have been documented in the HPI. Review of Systems: CONST: Endorses fever EYES: Denies blurry vision ENT: Endorses congestion C/V: Denies Chest pain RESP: Denies shortness of breath GI: Endorses abdominal pain : Denies dysuria SKIN: Denies rash. MSK: Denies joint pain. NEURO: Denies headache ROS Other: All systems not noted in ROS Statement are negative. Past Medical History Past Medical History: Hyperlipidemia, Hypertension History of Any Multi-Drug Resistant Organisms: None Reported Past Surgical History: Ablation Additional Past Surgical History / Comment(s): benign brain tumor removed, Abd Past Psychological History: No Psychological Hx Reported Smoking Status: Never smoker Past Alcohol Use History: None Reported Past Drug Use History: None Reported General Exam - General Exam Comments Initial Comments: General: Appears in no acute distress. Afebrile. HEAD: Normal with no signs of head trauma. EYES: PERRLA, EOMI, conjunctiva normal, no discharge. ENT: Hearing grossly intact, normal oropharynx. RESPIRATORY: Clear breath sounds bilaterally. No wheezes, rales, or rhonchi. C/V: Regular rate and rhythm. S1 and S2 auscultated, no edema, peripheral pulses 2+ and intact throughout ABD: Abdomen soft, with distention over the right side and concern for possible abdominal wall hematoma or fluid collection at the site. Is erythematous and warm to touch. Cannot definitively rule out infection. EXT: Normal range of motion, no obvious deformity SKIN: See above for abdominal wall findings. NEURO: Alert and oriented x 4 Limitations: no limitations Course Vital Signs 05/30/24 05/30/24 07:33 11:29 Temperature 98.8 F Pulse Rate 80 73 Respiratory 20 16 Rate Blood Pressure 124/58 115/60 O2 Sat by Pulse 98 99 Oximetry Medical Decision Making - Medical Decision Making Was pt. sent in by a medical professional or institution (, PA, [employer], urgent care, hospital, or penitentiary...) When possible be specific @ -No Did you speak to anyone other than the patient for history (EMS, parent, family, police, friend...)? What history was obtained from this source @ -No Did you review nursing and triage notes (agree or disagree)? Why? @ -I reviewed and agree with nursing and triage notes Were old charts reviewed (outside hosp., previous admission, EMS record, old E KG, old radiological studies, urgent care reports/EKG's, penitentiary records)? Report findings @ -Reviewed charts from recent admission from April 2024 including the fact that patient was discharged home on an IR drain and that IR drain the site. Differential Diagnosis (chest pain, altered mental status, abdominal pain women, abdominal pain men, vaginal bleeding, weakness, fever, dyspnea, syncope, headache, dizziness, GI bleed, back pain, seizure, CVA, palpatations, mental health, musculoskeletal)? @ -Differential Abdominal Pain Women: Appendicitis, Cholecystitis, diverticulosis, ischemic bowel, pancreatitis, hepatitis, UTI, gastroenteritis, AAA, incarcerated hernia, bowel obstruction, constipation, inflammatory bowel, hepatitis, peptic ulcer disease, splenic infarction, perforated viscus, vulvitis, ovarian torsion, PID, kidney stone, placenta abruption, this is not meant to be an all-inclusive list EKG interpreted by me (3pts min.). @ -As above X-rays interpreted by me (1pt min.). @ -Chest x-ray reveals no obvious acute cardiopulmonary process. CT interpreted by me (1pt min.). @ -CT angiogram of the abdomen pelvis reveals findings consistent with a right anterior lateral wall abdominal abscess. Surrounding inflammation. U/S interpreted by me (1pt. min.). @ -None done What testing was considered but not performed or refused? (CT, X-rays, U/S, labs)? Why? @ -None What meds were considered but not given or refused? Why? @ -I offered analgesia medications on initial presentation however patient declines at this time. We will continue to monitor. Did you discuss the management of the patient with other professionals (professionals i.e. , PA, [employer], lab, RT, psych nurse, certified social workers in health care, nonprofit fundraiser, teacher, president and chief commercial officer, rn case mgr)? Give summary @ -Discussed the case with Dr. Aleman of surgery who is in agreement the plan and recommended IR consultation. Discussed the case with admitting provider, Dr. Dugan who accepted the admission and requested infectious disease consultation. Was smoking cessation discussed for >3mins.? @ -No Was critical care preformed (if so, how long)? @ -No Were there social determinants of health that impacted care today? How? (Homelessness, low income, unemployed, alcoholism, drug addiction, transportation, low edu. Level, literacy, decrease access to med. care, [facility], rehab)? @ -No Was there de-escalation of care discussed even if they declined (Discuss DNR or withdrawal of care, Hospice)? DNR status @ -No What co-morbidities impacted this encounter? (DM, HTN, Smoking, COPD, CAD, Cancer, CVA, ARF, Chemo, Hep., AIDS, mental health diagnosis, sleep apnea, morbid obesity)? @ -Atrial fibrillation on blood thinners, recent IR drainage of abdominal wall hematoma Was patient admitted / discharged? Hospital course, mention meds given and route, prescriptions, significant lab abnormalities, going to OR and other pertinent info. @ -Based on patient's presentation and physical exam, presents emergency department over concern for abdominal wall pain of unknown etiology. Concern for infectious versus hematoma. Patient has been having fevers at home but is currently afebrile. Vitals are within acceptable limits. We will obtain CT imaging of the abdomen as well as evaluation for febrile illness. Patient agreement this plan. She will be symptomatically treated with IV fluids, Zofran, Protonix. I did offer analgesia medications which were declined by the patient at this time. Patient's laboratory studies remarkable for mild leukocytosis of 12.4, hemoglobin of 10.7 which is down from 12 from a few weeks ago. Labs otherwise are relatively within acceptable limits. Imaging remarkable for abdominal wall abscess. Patient started on IV antibiotics and fluids. She remains afebrile and vital signs remained stable at this time. She will be admitted to the hospital. Blood cultures already sent. Discussed the case with Dr. Aleman of surgery who is in agreement the plan and recommended IR consultation. Discussed the case with admitting provider, Dr. Dugan who accepted the admission and requested infectious disease consultation. Undiagnosed new problem with uncertain prognosis? @ -No Drug Therapy requiring intensive monitoring for toxicity (Heparin, Nitro, Insulin, Cardizem)? @ -No Were any procedures done? @ -No Diagnosis/symptom? @ -Abdominal wall abscess, postop infection Acute, or Chronic, or Acute on Chronic? @ -Acute Uncomplicated (without systemic symptoms) or Complicated (systemic symptoms)? @ -Complicated Side effects of treatment? @ -None Exacerbation, Progression, or Severe Exacerbation] @ -No Poses a threat to life or bodily function? @ -Yes - Lab Data Result diagrams: 05/30/24 08:35 05/30/24 08:35 Lab Results 05/30/24 05/30/24 05/30/24 Range/Units 07:52 07:52 08:35 WBC 12.4 H (3.8-10.6) k/uL RBC 3.71 L (3.80-5.40) m/uL Hgb 10.7 L (11.4-16.0) gm/dL Hct 32.5 L (34.0-46.0) % MCV 87.8 (80.0-100.0) fL MCH 29.0 (25.0-35.0) pg MCHC 33.0 (31.0-37.0) g/dL RDW 14.3 (11.5-15.5) % Plt Count 220 (150-450) k/uL MPV 7.7 Neutrophils % 84 % Lymphocytes % 9 % Monocytes % 5 % Eosinophils % 1 % Basophils % 0 % Neutrophils # 10.4 H (1.3-7.7) k/uL Lymphocytes # 1.2 (1.0-4.8) k/uL Monocytes # 0.6 (0-1.0) k/uL Eosinophils # 0.1 (0-0.7) k/uL Basophils # 0.0 (0-0.2) k/uL PT (10.0-12.5) sec INR (<1.2) APTT (22.0-30.0) sec Sodium (137-145) mmol/L Potassium (3.5-5.1) mmol/L Chloride (98-107) mmol/L Carbon Dioxide (22-30) mmol/L Anion Gap mmol/L BUN (7-17) mg/dL Creatinine (0.52-1.04) mg/dL Est GFR (CKD-EPI)AfAm (>60 ml/min/1.73 sqM) Est GFR (CKD-EPI)NonAf (>60 ml/min/1.73 sqM) Glucose (74-99) mg/dL Plasma Lactic Acid Deon (0.7-2.0) mmol/L Calcium (8.4-10.2) mg/dL Total Bilirubin (0.2-1.3) mg/dL AST (14-36) U/L ALT (4-34) U/L Alkaline Phosphatase (38-126) U/L Total Protein (6.3-8.2) g/dL Albumin (3.5-5.0) g/dL Amylase (30-110) U/L Lipase (23-300) U/L Urine Color Yellow Urine Appearance Cloudy H (Clear) Urine pH 6.5 (5.0-8.0) Ur Specific [place] 1.015 (1.001-1.035) Urine Protein Trace H (Negative) Urine Glucose (UA) Negative (Negative) Urine Ketones Negative (Negative) Urine Blood Negative (Negative) Urine Nitrite Negative (Negative) Urine Bilirubin Negative (Negative) Urine Urobilinogen <2.0 (<2.0) mg/dL Ur Leukocyte Esterase Moderate H (Negative) Urine RBC 1 (0-5) /hpf Urine WBC 2 (0-5) /hpf Ur Squamous Epith Cells 7 H (0-4) /hpf Ur Transition Epith Cell <1 (0-1) /hpf Urine Bacteria Rare H (None) /hpf Urine Mucus Rare H (None) /hpf Influenza Type A (PCR) Not Detected (Not Detectd) Influenza Type B (PCR) Not Detected (Not Detectd) RSV (PCR) Not Detected (Not Detectd) SARS-CoV-2 (PCR) Not Detected (Not Detectd) Blood Type Blood Type Confirm Blood Type Recheck Bld Type Recheck Status Antibody Screen Spec Expiration Date 05/30/24 05/30/24 05/30/24 Range/Units 08:35 08:35 08:35 WBC (3.8-10.6) k/uL RBC (3.80-5.40) m/uL Hgb (11.4-16.0) gm/dL Hct (34.0-46.0) % MCV (80.0-100.0) fL MCH (25.0-35.0) pg MCHC (31.0-37.0) g/dL RDW (11.5-15.5) % Plt Count (150-450) k/uL MPV Neutrophils % % Lymphocytes % % Monocytes % % Eosinophils % % Basophils % % Neutrophils # (1.3-7.7) k/uL Lymphocytes # (1.0-4.8) k/uL Monocytes # (0-1.0) k/uL Eosinophils # (0-0.7) k/uL Basophils # (0-0.2) k/uL PT 11.2 (10.0-12.5) sec INR 1.0 (<1.2) APTT 24.4 (22.0-30.0) sec Sodium 135 L (137-145) mmol/L Potassium 3.4 L (3.5-5.1) mmol/L Chloride 99 (98-107) mmol/L Carbon Dioxide 26 (22-30) mmol/L Anion Gap 10 mmol/L BUN 15 (7-17) mg/dL Creatinine 0.82 (0.52-1.04) mg/dL Est GFR (CKD-EPI)AfAm 86 (>60 ml/min/1.73 sqM) Est GFR (CKD-EPI)NonAf 75 (>60 ml/min/1.73 sqM) Glucose 119 H (74-99) mg/dL Plasma Lactic Acid Deon 1.0 (0.7-2.0) mmol/L Calcium 8.6 (8.4-10.2) mg/dL Total Bilirubin 0.7 (0.2-1.3) mg/dL AST 29 (14-36) U/L ALT 27 (4-34) U/L Alkaline Phosphatase 127 H (38-126) U/L Total Protein 5.8 L (6.3-8.2) g/dL Albumin 3.2 L (3.5-5.0) g/dL Amylase 33 (30-110) U/L Lipase 60 (23-300) U/L Urine Color Urine Appearance (Clear) Urine pH (5.0-8.0) Ur Specific [place] (1.001-1.035) Urine Protein (Negative) Urine Glucose (UA) (Negative) Urine Ketones (Negative) Urine Blood (Negative) Urine Nitrite (Negative) Urine Bilirubin (Negative) Urine Urobilinogen (<2.0) mg/dL Ur Leukocyte Esterase (Negative) Urine RBC (0-5) /hpf Urine WBC (0-5) /hpf Ur Squamous Epith Cells (0-4) /hpf Ur Transition Epith Cell (0-1) /hpf Urine Bacteria (None) /hpf Urine Mucus (None) /hpf Influenza Type A (PCR) (Not Detectd) Influenza Type B (PCR) (Not Detectd) RSV (PCR) (Not Detectd) SARS-CoV-2 (PCR) (Not Detectd) Blood Type Blood Type Confirm Blood Type Recheck Bld Type Recheck Status Antibody Screen Spec Expiration Date 05/30/24 05/30/24 Range/Units 08:35 08:40 WBC (3.8-10.6) k/uL RBC (3.80-5.40) m/uL Hgb (11.4-16.0) gm/dL Hct (34.0-46.0) % MCV (80.0-100.0) fL MCH (25.0-35.0) pg MCHC (31.0-37.0) g/dL RDW (11.5-15.5) % Plt Count (150-450) k/uL MPV Neutrophils % % Lymphocytes % % Monocytes % % Eosinophils % % Basophils % % Neutrophils # (1.3-7.7) k/uL Lymphocytes # (1.0-4.8) k/uL Monocytes # (0-1.0) k/uL Eosinophils # (0-0.7) k/uL Basophils # (0-0.2) k/uL PT (10.0-12.5) sec INR (<1.2) APTT (22.0-30.0) sec Sodium (137-145) mmol/L Potassium (3.5-5.1) mmol/L Chloride (98-107) mmol/L Carbon Dioxide (22-30) mmol/L Anion Gap mmol/L BUN (7-17) mg/dL Creatinine (0.52-1.04) mg/dL Est GFR (CKD-EPI)AfAm (>60 ml/min/1.73 sqM) Est GFR (CKD-EPI)NonAf (>60 ml/min/1.73 sqM) Glucose (74-99) mg/dL Plasma Lactic Acid Deon (0.7-2.0) mmol/L Calcium (8.4-10.2) mg/dL Total Bilirubin (0.2-1.3) mg/dL AST (14-36) U/L ALT (4-34) U/L Alkaline Phosphatase (38-126) U/L Total Protein (6.3-8.2) g/dL Albumin (3.5-5.0) g/dL Amylase (30-110) U/L Lipase (23-300) U/L Urine Color Urine Appearance (Clear) Urine pH (5.0-8.0) Ur Specific [place] (1.001-1.035) Urine Protein (Negative) Urine Glucose (UA) (Negative) Urine Ketones (Negative) Urine Blood (Negative) Urine Nitrite (Negative) Urine Bilirubin (Negative) Urine Urobilinogen (<2.0) mg/dL Ur Leukocyte Esterase (Negative) Urine RBC (0-5) /hpf Urine WBC (0-5) /hpf Ur Squamous Epith Cells (0-4) /hpf Ur Transition Epith Cell (0-1) /hpf Urine Bacteria (None) /hpf Urine Mucus (None) /hpf Influenza Type A (PCR) (Not Detectd) Influenza Type B (PCR) (Not Detectd) RSV (PCR) (Not Detectd) SARS-CoV-2 (PCR) (Not Detectd) Blood Type A Positive Blood Type Confirm A Positive Blood Type Recheck No Previous Record Bld Type Recheck Status CABO Indicated Antibody Screen NEGATIVE Spec Expiration Date 06/02/20242334 - EKG Data -: EKG Interpreted by Me EKG Comments: 12-lead Electrocardiogram Interpretation Note EKG was reviewed and interpreted by myself. 12-lead ECG performed at 0805 is interpreted by me as revealing normal sinus rhythm at a rate of 72 beats per minute. [place] is normal. AR interval is 158 ms, QRS duration is 89 ms, QTc is 419 ms.. There were no ST or T wave abnormalities to suggest myocardial isch emia or injury. R wave progression across the precordium was satisfactory. By my interpretation this EKG is non-diagnostic for acute ischemia. Disposition Clinical Impression: Abdominal wall abscess, Post op infection Disposition: ADMITTED IP TO THIS HOSP Condition: Stable Time of Disposition: 11:51
[2024-05-30] MEDS: SODIUM CHLORIDE 0.9% 1,000 ML IV STA ×2 (08:41→11:41)
[2024-05-30 08:52] LABS: Basophils % (A) 0 %; Eosinophils # (A) 0.1 k/uL (0-0.7); Eosinophils % (A) 1 %; HCT 32.5 % (34.0-46.0); HGB 10.7 gm/dL (11.4-16.0); Lymphocytes # (A) 1.2 k/uL (1.0-4.8); Lymphocytes % (A) 9 %; MCV 87.8 fL (80.0-100.0); Mean Platelet Volume 7.7; Monocytes # (A) 0.6 k/uL (0-1.0); Monocytes % (A) 5 %; Neutrophils # (A) 10.4 k/uL (1.3-7.7); Neutrophils % (A) 84 %; Platelet Count 220 k/uL (150-450); RBC 3.71 m/uL (3.80-5.40); RDW 14.3 % (11.5-15.5); WBC 12.4 k/uL (3.8-10.6)
--- NOTE | 2024-05-30 08:57 | XR ---
EXAMINATION TYPE: XR chest 2V DATE OF EXAM: 05/30/2024 COMPARISON: 01/18/2021 HISTORY: Abdominal pain TECHNIQUE: Frontal and lateral views of the chest are obtained. FINDINGS: There is no focal air space opacity, pleural effusion, or pneumothorax seen. The cardiac silhouette size is within normal limits. The osseous structures are intact. IMPRESSION: No acute cardiopulmonary process. [facility], Workstation: [id number] 05/30/2024 8:55 AM
[2024-05-30 09:00] LABS: Partial Thromboplastin Time 24.4 sec (22.0-30.0); Prothrombin Time 11.2 sec (10.0-12.5)
[2024-05-30 09:18] LABS: Appearance,Urine Cloudy (Clear); Bacteria,Urine Rare /hpf; Bilirubin,Urine Negative (Negative); Blood,Urine Negative (Negative); Color,Urine Yellow; Glucose,Urine (UA) Negative (Negative); Ketones,Urine Negative (Negative); Leukocyte Esterase,Urine Moderate (Negative); Mucus,Urine Rare /hpf; Nitrite,Urine Negative (Negative); PH, Urine 6.5 (5.0-8.0); Protein,Urine Trace (Negative); RBC,Urine 1 /hpf (0-5); Specific Gravity,Urine 1.015 (1.001-1.035); Squamous Epithelial Cell,Urine 7 /hpf (0-4); Transitional Epi Cells,Urine <1 /hpf (0-1); Urobilinogen,Urine <2.0 mg/dL (<2.0); WBC,Urine 2 /hpf (0-5)
[2024-05-30 09:36] LABS: ALT 27 U/L (4-34); AST 29 U/L (14-36); African American GFR (CKD) 86 (>60 ml/min/1.73 sqM); Albumin 3.2 g/dL (3.5-5.0); Alkaline Phosphatase 127 U/L (38-126); Amylase 33 U/L (30-110); Anion Gap 10 mmol/L; Blood Urea Nitrogen 15 mg/dL (7-17); Calcium 8.6 mg/dL (8.4-10.2); Carbon Dioxide 26 mmol/L (22-30); Chloride 99 mmol/L (98-107); Glucose 119 mg/dL (74-99); Lipase 60 U/L (23-300); Non-African American GFR(CKD) 75 (>60 ml/min/1.73 sqM); Potassium 3.4 mmol/L (3.5-5.1); Sodium 135 mmol/L (137-145); Total Bilirubin 0.7 mg/dL (0.2-1.3); Total Protein 5.8 g/dL (6.3-8.2)
[2024-05-30] MEDS: PANTOPRAZOLE 40 MG/10 ML VIAL IVP STA (10:05)
[2024-05-30] MEDS: ONDANSETRON 4 MG/2 ML VIAL IVP STA (10:06)
--- NOTE | 2024-05-30 11:13 | CT ---
CTA abdomen and pelvis. HISTORY: Abdominal mass status post trauma COMPARISON: CT abdomen and pelvis dated 05/06/2024. TECHNIQUE: Multiple axial images are obtained through abdomen and pelvis before and after the unevent ful administration of nonionic IV contrast. The exam was performed according to department CTA protoc ol. FINDINGS: The visualized lung bases are clear. The previously described well-defined simple fluid collection measuring 20 x 11 x 14 cm in the right anterior lateral abdominal wall is now approximately 18 x 4.7 x 11 cm but the wall of the collection has become thickened and ill-defined and there is significant edema/inflammatory change in the surrou nding subcutaneous soft tissues. In addition there are multiple bubbles of air within the collection and the finding now consistent an abscess.. The gallbladder is normal. There is no focal mass or organomegaly involving the liver, pancreas, spleen or adrenal gland. There is a small accessory spleen. There is no solid renal mass or hydronephrosis. There is no retroperitoneal adenopathy. The bowel loops are normal in caliber and there is no dilatation or obstruction. No inflammatory rodriguez ges are identified in the bowel wall or mesentery. There is no free intraperitoneal air or fluid. There is a loculated calcified uterine fibroid but no other pelvic mass, abscess or adenopathy. The osseous structures are intact. IMPRESSION: Right anterior lateral abdominal wall mass consistent with an abscess as described above. [facility], , 05/30/2024 11:11 AM
[2024-05-30] MEDS ORDERED: VANCOMYCIN IV PER PHARMACY 1 EACH MISC MISCELLANE PRN (11:31)
[2024-05-30] MEDS: PIPERACILLIN-TAZOBACTAM 3.375 GM in SODIUM CHLORIDE 0.9% 100 ML IVPB SCH (11:41)
[2024-05-30] MEDS ORDERED: VANCOMYCIN 1,750 MG in SODIUM CHLORIDE 0.9% 500 ML 500 ML IVPB ONE (12:00)
[2024-05-30] MEDS ORDERED: ONDANSETRON 4 MG/2 ML VIAL IVP PRN (12:04)
[2024-05-30] MEDS ORDERED: NALOXONE 0.4 MG/ML 1 ML VIAL IV PRN (12:04)
--- NOTE | 2024-05-30 13:37 | P.HPIM ---
History of Present Illness H&P Date: 05/30/24 History of present illness: This is a 64-year-old female with past medical history significant for atrial fibrillation status post ablation, previously on Eliquis currently on hold, history of hypertension, hyperlipidemia who presented to ER with a complaint of fever, chills, night sweats, right-sided abdominal wall pain, redness, tenderness and warmth for the last 4 to 5 days. Patient was recently hospitalized about 3 weeks ago when patient had a abdominal wall hematoma following a fall, underwent IR drainage, was evaluated by general surgery and was discharged home with drain which was taken out about a week ago. Patient stated that for couple of days she did okay and was taking oral doxycycline, for the last 4 to 5 days patient noticed that her abdominal wall was getting swollen again, noticed more warmth, pain and tenderness, patient also reported high- grade fevers up to 102.6 yesterday, also reported chills and night sweats. Patient denied any sick contacts. Patient stated that she has been off Eliquis for more than a week. In the ED patient afebrile, heart rate 80, respiratory rate 20, blood pressure 124/58, saturating 98% on room air. Labs showed WBCs 12.4, hemoglobin 10.7, platelet 220, absolute neutrophil count 10.4. INR 1.0. BMP was mostly unremarkable. LFTs unremarkable. UA showed moderate leukocyte Estrace, patient asymptomatic. COVID influenza and RSV negat [place]. CT abdomen pelvis showed fluid collection measuring 20 X11 X 14 cm in the right anterior lateral abdominal wall is now approximately 18 X4.7X 11 cm, but the wall of collection has become thickened and ill-defined, significant edema/inflammatory changes in the surrounding subcutaneous soft tissue, in addition multiple bubbles of air within the collection and the findings are consistent with an abscess. REVIEW OF SYSTEMS: CONSTITUTIONAL: Fever, chills, night sweats, fatigue. HEENT: No recent visual problems or hearing problems. Denied any sore throat. CARDIOVASCULAR: No chest pain, orthopnea, PND, no palpitations, no syncope. PULMONARY: No shortness of breath, no cough, no hemoptysis. GASTROINTESTINAL: No diarrhea, no nausea, no vomiting, complains of abdominal 1 pain redness and warmth. NEUROLOGICAL: No headaches, no weakness, no numbness. HEMATOLOGICAL: Denies any bleeding or petechiae. GENITOURINARY: Denies any burning micturition, frequency, or urgency. MUSCULOSKELETAL/RHEUMATOLOGICAL: Denies any joint pain, swelling, or any muscle pain. ENDOCRINE: Denies any polyuria or polydipsia. The rest of the 14-point review of systems is negative. PHYSICAL EXAMINATION: GENERAL: The patient is A&O x3, NAD HEENT: EOMI, Sclerae anicteric, Moist Mucous membranes Neck: Supple, Non tender, No JVD PULMONARY: Equal breath souds B/L, No wheezing, No crackles. CARDIOVASCULAR: S1, S2 present. No murmurs, rubs, or gallops. ABDOMEN: Extensive erythema, warmth, tenderness right-sided abdominal fall extending posterior to flank. MUSCULOSKELETAL: No edema, No cyanosis. No clubbing. Normal ROM. Intact peripheral pulses. EXTREMITIES: No cyanosis, clubbing, or pedal edema. NEUROLOGICAL: CN 2-12 grossly intact. No FND Assessment and plan: Abdominal wall abscess: Recent abdominal wall hematoma after fall, had a drain, taken out about a week ago Presented with fever, chills, night sweats, right-sided abdominal wall redness warmth and tenderness. CT abdomen pelvis concerning for abdominal wall abscess General surgery consult Infectious disease consult Vancomycin and Zosyn Blood cultures Hypertension: Hyperlipidemia: Paroxysmal atrial fibrillation status post ablation: Continue home meds. DVT prophylaxis SCD Monitor vital signs and labs Labs and medication were reviewed. Continue same treatment. Further recommendations as per clinical course of the patient Dictation was produced using [employer] dictation software. please excuse any grammatical, word or spelling errors. Past Medical History Past Medical History: Hyperlipidemia, Hypertension History of Any Multi-Drug Resistant Organisms: None Reported Past Surgical History: Ablation Additional Past Surgical History / Comment(s): benign brain tumor removed, Abd Past Psychological History: No Psychological Hx Reported Smoking Status: Never smoker Past Alcohol Use History: None Reported Past Drug Use History: None Reported Medications and Allergies Home Medications Medication Instructions Recorded Confirmed Type Atorvastatin [Lipitor] 20 mg PO MOWEFR 05/06/24 05/30/24 History EPINEPHrine (Auto Inject) [Epipen] 0.3 mg IM ONCE PRN 05/06/24 05/30/24 History Escitalopram [Lexapro] 10 mg PO HS 05/06/24 05/30/24 History Fexofenadine HCl [Conchita Allergy] 180 mg PO HS 05/06/24 05/30/24 History Metoprolol Succinate (ER) [Toprol 150 mg PO HS 05/06/24 05/30/24 History XL] Multivitamins, Thera [Multivitamin 1 tab PO HS 05/06/24 05/30/24 History (formulary)] Potassium Chloride ER [K-Dur 10] 10 meq PO MOTUWETHFR 05/06/24 05/30/24 History Solifenacin Succinate [Vesicare] 5 mg PO HS 05/06/24 05/30/24 History Triamterene/Hydrochlorothiazid 1 cap PO HS 05/06/24 05/30/24 History [Triamterene-Hctz 37.5-25 mg Cp] Vit C/E/Zn/Coppr/Lutein/Zeaxan 1 cap PO HS 05/06/24 05/30/24 History [Preservision Areds 2 Softgel] Doxycycline Hyclate 100 mg PO BID 05/30/24 05/30/24 History Allergies Allergy/AdvReac Type Severity Reaction Status Date / Time bee venom protein (honey bee) Allergy Swelling Verified 05/30/24 11:56 bees Allergy Swelling Uncoded 05/30/24 07:38 Physical Exam Vitals: Vital Signs Temp Pulse Resp BP Pulse Ox 05/30/24 11:29 73 16 115/60 99 05/30/24 07:33 98.8 F 80 20 124/58 98 Intake and Output 05/29/24 05/30/24 05/30/24 22:59 06:59 14:59 Other: Weight 120.202 kg Results CBC & Chem 7: 05/30/24 08:35 05/30/24 08:35 Labs: Abnormal Lab Results - Last 24 Hours (Table) 05/30/24 05/30/24 05/30/24 Range/Units 07:52 08:35 08:35 WBC 12.4 H (3.8-10.6) k/uL RBC 3.71 L (3.80-5.40) m/uL Hgb 10.7 L (11.4-16.0) gm/dL Hct 32.5 L (34.0-46.0) % Neutrophils # 10.4 H (1.3-7.7) k/uL Sodium 135 L (137-145) mmol/L Potassium 3.4 L (3.5-5.1) mmol/L Glucose 119 H (74-99) mg/dL Alkaline Phosphatase 127 H (38-126) U/L Total Protein 5.8 L (6.3-8.2) g/dL Albumin 3.2 L (3.5-5.0) g/dL Urine Appearance Cloudy H (Clear) Urine Protein Trace H (Negative) Ur Leukocyte Esterase Moderate H (Negative) Ur Squamous Epith Cells 7 H (0-4) /hpf Urine Bacteria Rare H (None) /hpf Urine Mucus Rare H (None) /hpf
[2024-05-30] MEDS: VANCOMYCIN 1,750 MG in SODIUM CHLORIDE 0.9% 500 ML 500 ML IVPB ONE (15:44)
--- NOTE | 2024-05-30 21:32 | P.CONS ---
History of Present Illness - Reason for Consult Consult date: 05/30/24 Abdominal wall abscess Requesting physician: Gama Diaz - Chief Complaint Abdominal pain and redness x days - History of Present Illness Patient is a 64-year-old female past medical history significant for hypertension hyperlipidemia atrial fibrillation on Eliquis apparently patient did have a fall few weeks ago for the patient was admitted to the hospital and has developed abdominal wall hematoma patient is status post IR drainage of that hematoma and was evaluated by general surgery culture were negative and apparently patient was subsequent discharged home on doxycycline patient did well initially however for the last 4 to 5 days it has become more swollen red and has becoming painful patient describing the pain to be sharp moderate intensity without any radiation did have associated fever and chills for the patient presented back to the hospital on arrival to the ER patient was afebrile subsequently had a low-grade fever of 99.9 F patient was not tachycardic hypotensive or hypoxic she did have a white count of 12.4 with a left shift cr eatinine 0.82 liver isms are normal urine is mildly positive influenza RSV COVID testing was negative patient did have a chest x-ray no acute cardiopulmonary disease process did have a CT of abdominal pelvis which did show well-defined fluid collection 18X 4.7X 11 cm with multiple bubbles of free air concerning for an abscess patient was started on vancomycin and Zosyn infectious disease was consulted for further management of antibiotic therapy Review of Systems Positive point and negatives has been mentioned in the HPI, complete review of systems was performed and all other systems are negative Past Medical History Past Medical History: Hyperlipidemia, Hypertension History of Any Multi-Drug Resistant Organisms: None Reported Past Surgical History: Ablation Additional Past Surgical History / Comment(s): benign brain tumor removed, Abd Past Psychological History: No Psychological Hx Reported Smoking Status: Never smoker Past Alcohol Use History: None Reported Past Drug Use History: None Reported Medications and Allergies Home Medications Medication Instructions Recorded Confirmed Type Atorvastatin [Lipitor] 20 mg PO MOWEFR 05/06/24 05/30/24 History EPINEPHrine (Auto Inject) [Epipen] 0.3 mg IM ONCE PRN 05/06/24 05/30/24 History Escitalopram [Lexapro] 10 mg PO HS 05/06/24 05/30/24 History Fexofenadine HCl [Conchita Allergy] 180 mg PO HS 05/06/24 05/30/24 History Metoprolol Succinate (ER) [Toprol 150 mg PO HS 05/06/24 05/30/24 History XL] Multivitamins, Thera [Multivitamin 1 tab PO HS 05/06/24 05/30/24 History (formulary)] Potassium Chloride ER [K-Dur 10] 10 meq PO MOTUWETHFR 05/06/24 05/30/24 History Solifenacin Succinate [Vesicare] 5 mg PO HS 05/06/24 05/30/24 History Triamterene/Hydrochlorothiazid 1 cap PO HS 05/06/24 05/30/24 History [Triamterene-Hctz 37.5-25 mg Cp] Vit C/E/Zn/Coppr/Lutein/Zeaxan 1 cap PO HS 05/06/24 05/30/24 History [Preservision Areds 2 Softgel] Doxycycline Hyclate 100 mg PO BID 05/30/24 05/30/24 History Allergies Allergy/AdvReac Type Severity Reaction Status Date / Time bee venom protein (honey bee) Allergy Swelling Verified 05/30/24 11:56 bees Allergy Swelling Uncoded 05/30/24 07:38 Physical Exam Vitals: Vital Signs Temp Pulse Resp BP Pulse Ox 05/30/24 11:29 73 16 115/60 99 05/30/24 07:33 98.8 F 80 20 124/58 98 Intake and Output 05/29/24 05/30/24 05/30/24 22:59 06:59 14:59 Other: Weight 120.202 kg GENERAL DESCRIPTION: Elderly female lying in bed, no distress. No tachypnea or accessory muscle of respiration use. HEENT: Shows Pallor , no scleral icterus. Oral mucous membrane is dry. No pharyngeal erythema or thrush NECK: Trachea central, no thyromegaly. LUNGS: Unlabored breathing. Clear to auscultation anteriorly. No wheeze or crackle. HEART: S1, S2, regular rate and rhythm. No loud murmur ABDOMEN: Soft, right-sided abdominal wall swelling and redness which is warm and tender to touch EXTREMITIES: No edema of feet. SKIN: No rash, no masses palpable. NEUROLOGICAL: The patient is awake, alert, oriented x3, mood and affect normal. Results CBC & Chem 7: 05/31/24 04:04 11/11/24 04:04 Labs: Abnormal Lab Results - Last 24 Hours (Table) 05/30/24 05/30/24 05/30/24 Range/Units 07:52 08:35 08:35 WBC 12.4 H (3.8-10.6) k/uL RBC 3.71 L (3.80-5.40) m/uL Hgb 10.7 L (11.4-16.0) gm/dL Hct 32.5 L (34.0-46.0) % Neutrophils # 10.4 H (1.3-7.7) k/uL Sodium 135 L (137-145) mmol/L Potassium 3.4 L (3.5-5.1) mmol/L Glucose 119 H (74-99) mg/dL Alkaline Phosphatase 127 H (38-126) U/L Total Protein 5.8 L (6.3-8.2) g/dL Albumin 3.2 L (3.5-5.0) g/dL Urine Appearance Cloudy H (Clear) Urine Protein Trace H (Negative) Ur Leukocyte Esterase Moderate H (Negative) Ur Squamous Epith Cells 7 H (0-4) /hpf Urine Bacteria Rare H (None) /hpf Urine Mucus Rare H (None) /hpf Assessment and Plan (1) Abdominal wall abscess Current Visit: Yes Status: Acute Code(s): L02.211 - CUTANEOUS ABSCESS OF ABDOMINAL WALL SNOMED Code(s): 21033529 (2) Leukocytosis Current Visit: Yes Status: Acute Code(s): D72.829 - ELEVATED WHITE BLOOD CELL COUNT, UNSPECIFIED SNOMED Code(s): 472665393 Plan: 1patient presented to hospital with right-sided abdominal wall swelling redness in this patient who recently did have abdominal wall hematoma after a fall and did have a drainage procedure on 05/08/2024 the culture were negative now presenting back to the hospital with worsening swelling and redness pain and fever with abnormal CT suspicious for an abscess we will likely need to cover for both gram-positive skin gerard as well as gram-negative pathogen 2-await general surgery valuation for possible I&D and deep culture 3-we will continue with the vancomycin while watching infection closely however switch Zosyn to cefepime to decrease risk of nephrotoxicity Question concern answered We will follow on clinical condition and cultures to further adjust medication if needed Thank you for this consultation we will follow the patient along with you Dictation was produced using [employer] software. please excuse any grammatical, word or spelling errors. Time with Patient: Greater than 30
[2024-05-30] MEDS: METOPROLOL SUCCINATE (ER) 50 MG TAB.ER.24H PO SCH (21:59)
[2024-05-30] MEDS: MULTIVITAMINS, THERA 1 EACH TAB PO SCH (22:00)
[2024-05-30] MEDS: LORATADINE 10 MG TAB PO SCH (22:00)
[2024-05-30] MEDS: ACETAMINOPHEN TAB 325 MG TAB PO PRN (22:06)
[2024-05-30] MEDS: VIT A,C & E-LUTEIN-MINERALS 1 EACH TAB PO SCH (22:31)
[2024-05-30] MEDS: ESCITALOPRAM 10 MG TAB PO SCH (22:31)
[2024-05-30] MEDS: TROSPIUM CHLORIDE 20 MG TABLET PO SCH (22:31)
[2024-05-31] MEDS: CEFEPIME 2 GM in SODIUM CHLORIDE 0.9% 100 ML IVPB SCH ×2 (00:14→20:29)
[2024-05-31 08:30] LABS: Basophils # (A) 0.03 X 10*3/uL (0.00-0.10); Basophils % (A) 0.3 %; Eosinophils # (A) 0.08 X 10*3/uL (0.04-0.35); Eosinophils % (A) 0.8 %; HCT 30.2 % (37.2-46.3); HGB 9.7 g/dL (12.0-15.0); Lymphocytes # (A) 1.07 X 10*3/uL (0.90-5.00); Lymphocytes % (A) 11.1 %; MCH 29.8 pg (27.0-32.0); MCHC 32.1 g/dL (32.0-37.0); MCV 92.6 FL (80.0-97.0); Mean Platelet Volume 10.8 FL (9.5-12.2); Monocytes # (A) 0.75 X 10*3/uL (0.20-1.00); Monocytes % (A) 7.8 %; NRBC Per 100 WBC 0 X 10*3/uL (0.00-0.01); Neutrophils # (A) 7.63 X 10*3/uL (1.80-7.70); Neutrophils % (A) 79.4 %; Platelet Count 184 X 10*3/uL (140-440); RBC 3.26 X 10*6/uL (4.10-5.20); RDW 14.2 % (11.5-14.5); WBC 9.62 X 10*3/uL (4.50-10.00)
[2024-05-31 08:42] LABS: ALT 26 U/L (8-44); AST 29 U/L (13-35); Albumin 2.7 g/dL (3.8-4.9); Albumin/Globulin Ratio 1.23 Ratio (1.60-3.17); Alkaline Phosphatase 123 U/L (41-126); BUN/Creat Ratio 14.78 Ratio (12.00-20.00); Blood Urea Nitrogen 13.3 mg/dL (9.0-27.0); Carbon Dioxide 21.7 mmol/L (21.6-31.8); Chloride 105 mmol/L (96-109); Globulin 2.2 g/dL (1.6-3.3); Glucose 118 mg/dL (70-110); Potassium 3.5 mmol/L (3.5-5.5); Sodium 138 mmol/L (135-145); Total Bilirubin 0.3 mg/dL (0.3-1.2); Total Protein 4.9 g/dL (6.2-8.2)
[2024-05-31] MEDS: PANTOPRAZOLE 40 MG/10 ML VIAL IV SCH (09:10)
[2024-05-31] MEDS: VANCOMYCIN 1,750 MG in SODIUM CHLORIDE 0.9% 500 ML 500 ML IVPB SCH (09:16)
--- NOTE | 2024-05-31 12:32 | P.PN ---
Subjective Progress Note Date: 05/31/24 Principal diagnosis: Reason for follow-up is abdominal wall abscess/cellulitis Patient is a 64-year-old female past medical history significant for hypertension hyperlipidemia atrial fibrillation on Eliquis apparently patient did have a fall few weeks ago for the patient was admitted to the hospital and has developed abdominal wall hematoma patient is status post IR drainage culture were negative discharged on doxycycline who presented back to the hospital with fever worsening abdominal wall swelling and redness and CT has been suspicious for an abscess. On today's evaluation that is 05/31/2024,the patient denies any fever or any chills, patient is breathing comfortably on room air, the patient denies chest pain shortness of breath and no significant cough, patient denies nausea vomiting or diarrhea still complaining of abdominal wall pain and tenderness. Patient white count normalized to 9.62, creatinine 0.9. Objective - Vital Signs Vital signs: Vital Signs Temp 99.4 F 05/31/24 06:55 Pulse 78 05/31/24 06:55 Resp 17 05/31/24 06:55 BP 119/68 05/31/24 06:55 Pulse Ox 97 05/31/24 06:55 FiO2 Intake & Output 05/30/24 05/31/24 05/31/24 18:59 06:59 18:59 Intake Total 900 Balance 900 Weight 120.202 kg Intake: Intake, IV Titration 900 Amount Cefepime 2 gm In Sodium 100 Chloride 0.9% 100 ml @ 25 mls/hr IVPB Q8HR [facility] Rx# :[id number] Sodium Chloride 0.9% 1, 800 000 ml @ 100 mls/hr IV . Q10H [facility] Rx#:[id number] Other: # Voids 1 2 - Exam GENERAL DESCRIPTION: An elderly female lying in bed in no distress RESPIRATORY SYSTEM: Unlabored breathing , decreased breath sounds at bases HEART: S1 S2 regular rate and rhythm , ABDOMEN: Soft , abdominal wall redness has slightly decreased EXTREMITIES: No edema feet - Labs CBC & Chem 7: 05/31/24 04:04 05/31/24 04:04 Labs: Abnormal Lab Results - Last 24 Hours (Table) 05/31/24 05/31/24 Range/Units 04:04 04:04 RBC 3.26 L (4.10-5.20) X 10*6/uL Hgb 9.7 L (12.0-15.0) g/dL Hct 30.2 L (37.2-46.3) % Immature Gran # 0.06 H (0.00-0.04) X 10*3/uL Glucose 118 H (70-110) mg/dL Calcium 8.0 L (8.7-10.3) mg/dL Total Protein 4.9 L (6.2-8.2) g/dL Albumin 2.7 L (3.8-4.9) g/dL Albumin/Globulin Ratio 1.23 L (1.60-3.17) Ratio Assessment and Plan (1) Abdominal wall abscess Current Visit: Yes Status: Acute Code(s): L02.211 - CUTANEOUS ABSCESS OF ABDOMINAL WALL SNOMED Code(s): 38164879 (2) Leukocytosis Current Visit: Yes Status: Acute Code(s): D72.829 - ELEVATED WHITE BLOOD CELL COUNT, UNSPECIFIED SNOMED Code(s): 511939563 Plan: 1patient presented to hospital with right-sided abdominal wall swelling redness in this patient who recently did have abdominal wall hematoma after a fall and did have a drainage procedure on 05/08/2024 the culture were negative now pre senting back to the hospital with worsening swelling and redness pain and fever with abnormal CT suspicious for an abscess we will likely need to cover for both gram-positive skin gerard as well as gram-negative pathogen 2-await general surgery valuation for possible I&D and deep culture 3-patient to continue with vancomycin and cefepime while waiting for the workup to be completed Dictation was produced using [employer] dictation software. please excuse any grammatical, word or spelling errors. Time with Patient: Less than 30
--- NOTE | 2024-05-31 13:46 | P.GSCN ---
History of Present Illness Consult date: 05/31/24 History of present illness: CHIEF COMPLAINT: Abdominal pain HISTORY OF PRESENT ILLNESS: This is a 64-year-old female with unknown right abdominal wall hematoma. She had a fall in January and had initially developed abdominal wall hematoma. She had a drain placed during her admission in April. She reports that the drain was removed on May 21. And she reports over the last 3 days she noticed increased right sided abdominal pain with redness and firmness. There is been no drainage from the site. She initially did start taking the Eliquis after the drain was removed. She took it for about 3 days but when she noted the firmness in the abdomen she stopped taking the Eliquis. She had a CT scan abdomen pelvis completed which did report an right anterior lateral abdominal wall mass consistent with abscess. Patient did report having fevers over the weekend. Her white count was elevated at 12.4. Hemoglobin on admission was 10.7 down to 9.7. And hemoglobin was 12 on May 09. Patient being evaluated by IR service for possible drain placement. Aby vega denies any history of diabetes. PAST MEDICAL HISTORY: See below PAST SURGICAL HISTORY: See below MEDICATIONS: See below ALLERGIES: See below SOCIAL HISTORY: No illicit drug use. REVIEW OF SYSTEMS: CONSTITUTIONAL: Denies fever or chills. HEENT: Denies blurred vision, vision changes, or eye pain. Denies hemoptysis CARDIOVASCULAR: Denies chest pain or pressure. RESPIRATORY: No shortness of breath. GASTROINTESTINAL: See HPI for pertinent findings HEMATOLOGIC: Denies bleeding disorders. GENITOURINARY: Denies any blood in urine or increased urinary frequency. SKIN: Denies pruitis. Denies rash. PHYSICAL EXAM: VITAL SIGNS: Reviewed GENERAL: Well-developed in no acute distress. HEENT: No sclera icterus. Extraocular movements grossly intact. Moist buccal mucosa. Head is atraumatic, normocephalic. No nasal drainage. ABDOMEN: Soft. Obese. Nondistended. Tenderness right flank. There is large area of erythema and induration and mild firmness. No drainage NEUROLOGIC: Alert and oriented. Cranial nerves II through XII grossly intact. LABORATORY DATA: WBC is down from 12.4-9.62 Hgb 10.7-9.7 platelets 184 Sodium 138 potassium 3.5 creatinine 0.9 IMAGING: CTA abdomen pelvis reports of right anterior lateral abdominal wall mass consistent with an abscess ASSESSMENT: 1. Right anterior lateral abdominal wall mass. Possible abscess on CAT scan PLAN: -Agree with IR evaluation for possible drain placement -Continue antibiotics per ID service -Continue to hold Eliquis -Repeat CBC in a.m. Physician Glove Tagger note has been reviewed by physician. Signing provider agrees with the documented findings, assessment, and plan of care. Past Medical History Past Medical History: Hyperlipidemia, Hypertension History of Any Multi-Drug Resistant Organisms: None Reported Past Surgical History: Ablation Additional Past Surgical History / Comment(s): benign brain tumor removed, Abd Past Psychological History: No Psychological Hx Reported Smoking Status: Never smoker Past Alcohol Use History: None Reported Past Drug Use History: None Reported Medications and Allergies Home Medications Medication Instructions Recorded Confirmed Type Atorvastatin [Lipitor] 20 mg PO MOWEFR 05/06/24 05/30/24 History EPINEPHrine (Auto Inject) [Epipen] 0.3 mg IM ONCE PRN 05/06/24 05/30/24 History Escitalopram [Lexapro] 10 mg PO HS 05/06/24 05/30/24 History Fexofenadine HCl [Conchita Allergy] 180 mg PO HS 05/06/24 05/30/24 History Metoprolol Succinate (ER) [Toprol 150 mg PO HS 05/06/24 05/30/24 History XL] Multivitamins, Thera [Multivitamin 1 tab PO HS 05/06/24 05/30/24 History (formulary)] Potassium Chloride ER [K-Dur 10] 10 meq PO MOTUWETHFR 05/06/24 05/30/24 History Solifenacin Succinate [Vesicare] 5 mg PO HS 05/06/24 05/30/24 History Triamterene/Hydrochlorothiazid 1 cap PO HS 05/06/24 05/30/24 History [Triamterene-Hctz 37.5-25 mg Cp] Vit C/E/Zn/Coppr/Lutein/Zeaxan 1 cap PO HS 05/06/24 05/30/24 History [Preservision Areds 2 Softgel] Doxycycline Hyclate 100 mg PO BID 05/30/24 05/30/24 History Allergies Allergy/AdvReac Type Severity Reaction Status Date / Time bee venom protein (honey bee) Allergy Swelling Verified 05/30/24 11:56 bees Allergy Swelling Uncoded 05/30/24 07:38 Surgical - Exam Vital Signs Temp Pulse Resp BP Pulse Ox 98.8 F 80 20 124/58 98 05/30/24 07:33 05/30/24 07:33 05/30/24 07:33 05/30/24 07:33 05/30/24 07:33 Results - Labs 05/31/24 04:04 05/31/24 04:04 Abnormal Lab Results - Last 24 Hours (Table) 05/31/24 05/31/24 Range/Units 04:04 04:04 RBC 3.26 L (4.10-5.20) X 10*6/uL Hgb 9.7 L (12.0-15.0) g/dL Hct 30.2 L (37.2-46.3) % Immature Gran # 0.06 H (0.00-0.04) X 10*3/uL Glucose 118 H (70-110) mg/dL Calcium 8.0 L (8.7-10.3) mg/dL Total Protein 4.9 L (6.2-8.2) g/dL Albumin 2.7 L (3.8-4.9) g/dL Albumin/Globulin Ratio 1.23 L (1.60-3.17) Ratio Diabetes panel 05/31/24 Range/Units 04:04 Sodium 138 (135-145) mmol/L Potassium 3.5 (3.5-5.5) mmol/L Chloride 105 (96-109) mmol/L Carbon Dioxide 21.7 (21.6-31.8) mmol/L BUN 13.3 (9.0-27.0) mg/dL Creatinine 0.9 (0.6-1.5) mg/dL Glucose 118 H (70-110) mg/dL Calcium 8.0 L (8.7-10.3) mg/dL AST 29 (13-35) U/L ALT 26 (8-44) U/L Alkaline Phosphatase 123 (41-126) U/L Total Protein 4.9 L (6.2-8.2) g/dL Albumin 2.7 L (3.8-4.9) g/dL Calcium panel 05/31/24 Range/Units 04:04 Calcium 8.0 L (8.7-10.3) mg/dL Albumin 2.7 L (3.8-4.9) g/dL Pituitary panel 05/31/24 Range/Units 04:04 Sodium 138 (135-145) mmol/L Potassium 3.5 (3.5-5.5) mmol/L Chloride 105 (96-109) mmol/L Carbon Dioxide 21.7 (21.6-31.8) mmol/L BUN 13.3 (9.0-27.0) mg/dL Creatinine 0.9 (0.6-1.5) mg/dL Glucose 118 H (70-110) mg/dL Calcium 8.0 L (8.7-10.3) mg/dL Adrenal panel 05/31/24 Range/Units 04:04 Sodium 138 (135-145) mmol/L Potassium 3.5 (3.5-5.5) mmol/L Chloride 105 (96-109) mmol/L Carbon Dioxide 21.7 (21.6-31.8) mmol/L BUN 13.3 (9.0-27.0) mg/dL Creatinine 0.9 (0.6-1.5) mg/dL Glucose 118 H (70-110) mg/dL Calcium 8.0 L (8.7-10.3) mg/dL Total Bilirubin 0.3 (0.3-1.2) mg/dL AST 29 (13-35) U/L ALT 26 (8-44) U/L Alkaline Phosphatase 123 (41-126) U/L Total Protein 4.9 L (6.2-8.2) g/dL Albumin 2.7 L (3.8-4.9) g/dL
--- NOTE | 2024-05-31 15:18 | P.PN ---
Subjective Progress Note Date: 05/31/24 Interval History: This is a 64-year-old female with past medical history significant for atrial fibrillation status post ablation, previously on Eliquis currently on hold, history of hypertension, hyperlipidemia who presented to ER with a complaint of fever, chills, night sweats, right-sided abdominal wall pain, redness, tenderness and warmth for the last 4 to 5 days. Patient was recently hospitalized about 3 weeks ago when patient had a abdominal wall hematoma following a fall, underwent IR drainage, was evaluated by general surgery and was discharged home with drain which was taken out about a week ago. Patient stated that for couple of days she did okay and was taking oral doxycycline, for the last 4 to 5 days patient noticed that her abdominal wall was getting swollen again, noticed more warmth, pain and tenderness, patient also reported high- grade fevers up to 102.6 yesterday, also reported chills and night sweats. Patient denied any sick contacts. Patient stated that she has been off Eliquis for more than a week. In the ED patient afebrile, heart rate 80, respiratory rate 20, blood pressure 124/58, saturating 98% on room air. Labs showed WBCs 12.4, hemoglobin 10.7, platelet 220, absolute neutrophil count 10.4. INR 1.0. BMP was mostly unremarkable. LFTs unremarkable. UA showed moderate leukocyte Estrace, patient asymptomatic. COVID influenza and RSV negative. CT abdomen pelvis showed fluid collection measuring 20 X11 X 14 cm in the right anterior lateral abdominal wall is now approximately 18 X4.7X 11 cm, but the wall of collection has become thickened and ill-defined, significant edema/inflammatory changes in the surrounding subcutaneous soft tissue, in addition multiple bubbles of air within the collection and the findings are consistent with an abscess. 05/31/2024: Patient reported that right-sided abdominal pain and swelling is better. Complained of night sweats. Patient had a temperature of 99.4 today, heart rate 78, respiratory rate 17, blood pressure 119/68, saturating 97% on room air. WBCs 9.6, hemoglobin 9.7, platelet 184. BMP unremarkable. Awaiting further general surgery recommendations. Infectious disease following, currently on vancomycin and cefepime. Assessment and plan: Abdominal wall abscess: Recent abdominal wall hematoma after fall, had a drain, taken out about a week ago Presented with fever, chills, night sweats, right-sided abdominal wall redness warmth and tenderness. CT abdomen pelvis concerning for abdominal wall abscess General surgery consult Infectious disease consult Vancomycin and cefepime Blood cultures Hypertension: Hyperlipidemia: Paroxysmal atrial fibrillation status post ablation: Continue home meds. DVT prophylaxis SCD Monitor vital signs and labs Labs and medication were reviewed. Continue same treatment. Further recommendations as per clinical course of the patient PHYSICAL EXAMINATION: GENERAL: The patient is A&O x3, NAD HEENT: EOMI, Sclerae anicteric, Moist Mucous membranes Neck: Supple, Non tender, No JVD PULMONARY: Equal breath souds B/L, No wheezing, No crackles. CARDIOVASCULAR: S1, S2 present. No murmurs, rubs, or gallops. ABDOMEN: Extensive erythema, warmth, tenderness right-sided abdominal fall extending posterior to flank. MUSCULOSKELETAL: No edema, No cyanosis. No clubbing. Normal ROM. Intact peripheral pulses. EXTREMITIES: No cyanosis, clubbing, or pedal edema. NEUROLOGICAL: CN 2-12 grossly intact. No FND -12 grossly intact. No FND Skin: No Rash REVIEW OF SYSTEMS: CONSTITUTIONAL: No fever or chills. CARDIOVASCULAR: No chest pain, palpitations or syncope. PULMONARY: No shortness of breath, no cough, sore throat. GASTROINTESTINAL: No nausea, vomiting, diarrhea, abdominal pain. : No Dysuria, urgency, frequency. Extremities: No edema. NEUROLOGICAL: No headaches, no weakness, or numbness Dictation was produced using [employer] dictation software. please excuse any grammatical, word or spelling errors. Objective - Vital Signs Vital signs: Vital Signs Temp 99.4 F 05/31/24 06:55 Pulse 78 05/31/24 06:55 Resp 17 05/31/24 06:55 BP 119/68 05/31/24 06:55 Pulse Ox 97 05/31/24 06:55 FiO2 Intake & Output 05/30/24 05/31/24 05/31/24 18:59 06:59 18:59 Intake Total 900 Balance 900 Weight 120.202 kg Intake: Intake, IV Titration 900 Amount Cefepime 2 gm In Sodium 100 Chloride 0.9% 100 ml @ 25 mls/hr IVPB Q8HR [facility] Rx# :[id number] Sodium Chloride 0.9% 1, 800 000 ml @ 100 mls/hr IV . Q10H [facility] Rx#:[id number] Other: # Voids 1 2 - Labs CBC & Chem 7: 05/31/24 04:04 05/31/24 04:04 Labs: Abnormal Lab Results - Last 24 Hours (Table) 05/31/24 05/31/24 Range/Units 04:04 04:04 RBC 3.26 L (4.10-5.20) X 10*6/uL Hgb 9.7 L (12.0-15.0) g/dL Hct 30.2 L (37.2-46.3) % Immature Gran # 0.06 H (0.00-0.04) X 10*3/uL Glucose 118 H (70-110) mg/dL Calcium 8.0 L (8.7-10.3) mg/dL Total Protein 4.9 L (6.2-8.2) g/dL Albumin 2.7 L (3.8-4.9) g/dL Albumin/Globulin Ratio 1.23 L (1.60-3.17) Ratio
[2024-05-31] MEDS: ATORVASTATIN 20 MG TAB PO SCH (20:30)
[2024-06-01 04:04] LABS: African American GFR (CKD) >90 (>60 ml/min/1.73 sqM); Anion Gap 6 mmol/L; Blood Urea Nitrogen 11 mg/dL (7-17); Calcium 7.6 mg/dL (8.4-10.2); Carbon Dioxide 21 mmol/L (22-30); Chloride 109 mmol/L (98-107); Glucose 97 mg/dL (74-99); Non-African American GFR(CKD) 89 (>60 ml/min/1.73 sqM); Potassium 3.4 mmol/L (3.5-5.1); Sodium 136 mmol/L (137-145)
[2024-06-01 08:22] LABS: Basophils # (A) 0.03 X 10*3/uL (0.00-0.10); Basophils % (A) 0.3 %; Eosinophils # (A) 0.11 X 10*3/uL (0.04-0.35); Eosinophils % (A) 1.2 %; HGB 9.4 g/dL (12.0-15.0); Lymphocytes # (A) 1.19 X 10*3/uL (0.90-5.00); Lymphocytes % (A) 12.6 %; MCH 29.6 pg (27.0-32.0); MCHC 31.3 g/dL (32.0-37.0); MCV 94.3 FL (80.0-97.0); Monocytes # (A) 0.67 X 10*3/uL (0.20-1.00); Monocytes % (A) 7.1 %; NRBC Per 100 WBC 0 X 10*3/uL (0.00-0.01); Neutrophils # (A) 7.33 X 10*3/uL (1.80-7.70); Neutrophils % (A) 77.9 %; Platelet Count 215 X 10*3/uL (140-440); RBC 3.18 X 10*6/uL (4.10-5.20); RDW 14.3 % (11.5-14.5); WBC 9.41 X 10*3/uL (4.50-10.00)
--- NOTE | 2024-06-01 13:21 | US ---
EXAMINATION TYPE: US guided soft tissue drainage with pigtail catheter placement. DATE OF EXAM: 06/01/2024 1:08 PM COMPARISON: 05/30/2024 CLINICAL INDICATION:Female, 64 years old with history of abdominal wall abscess drainage tube inserti on; TECHNIQUE: Ultrasound guided fluid aspiration. PROCEDURE: Informed consent was obtained. Risks including bleeding, infection, damage to surrounding structures, and the potential need for further procedures as well as benefits were explained. All patient questi ons were answered. Initial ultrasound images were taken which showed safest access to fluid collection located at [facility] lower abdomen. The patient was prepped and draped. Under sterile technique with 1% lidocaine loc al 8 Setswana pigtail catheter was placed utilizing trocar technique under ultrasound guidance. The pa tient tolerated the procedure well without complication. Fluid samples were obtained for analysis. Fl uid was bloody purulent on gross examination. The patient was transferred to recovery in stable condi tion. IMPRESSION: Successful ultrasound subcutaneous abscess pigtail catheter placement with drainage. Sample sent to [facility] for analysis. [facility], , 06/01/2024 1:19 PM
--- NOTE | 2024-06-01 15:10 | P.PN ---
Subjective Progress Note Date: 06/01/24 SURGICAL PROGRESS NOTE CHIEF COMPLAINT: Abdominal wall abscess HISTORY OF PRESENT ILLNESS: Patient continues report right sided flank abdominal pain. She is scheduled for IR drain placement today. Afebrile. WBC is 9.41 Hgb 9.4 PHYSICAL EXAM: VITAL SIGNS: Reviewed. GENERAL: Well-developed in no acute distress. ABDOMEN: Soft. Nondistended. Right flank tenderness with palpation and erythema NEUROLOGIC: Alert and oriented. Cranial nerves II through XII grossly intact. ASSESSMENT: 1. Right anterior abdominal wall abscess 2. Recent fall with right abdominal wall hematoma during her last admission PLAN: -IR scheduled to place drain today -Continue antibiotics per ID service -Continue to hold Eliquis -Repeat CBC in a.m. Physician Keypunch Operator note has been reviewed by physician. Signing provider agrees with the documented findings, assessment, and plan of care. Attestation Patient seen and examined at bedside. IR drain was placed with purulent output. Likely a complication of infected hematoma. Continue IV antibiotics per ID. Drain to remain in place. Eugene Pham DO Objective - Vital Signs Vital signs: Vital Signs Temp 99.0 F 06/01/24 14:00 Pulse 80 06/01/24 14:00 Resp 18 06/01/24 14:00 BP 111/66 06/01/24 14:00 Pulse Ox 94 L 06/01/24 14:00 FiO2 Intake & Output 05/31/24 06/01/24 06/01/24 18:59 06:59 18:59 Intake Total 120 Balance 120 Intake: Oral 120 Other: # Voids 2 1 - Labs CBC & Chem 7: 06/01/24 02:24 06/01/24 02:24 Labs: Abnormal Lab Results - Last 24 Hours (Table) 06/01/24 06/01/24 Range/Units 02:24 02:24 RBC 3.18 L (4.10-5.20) X 10*6/uL Hgb 9.4 L (12.0-15.0) g/dL Hct 30.0 L (37.2-46.3) % MCHC 31.3 L (32.0-37.0) g/dL Immature Gran # 0.08 H (0.00-0.04) X 10*3/uL Sodium 136 L (137-145) mmol/L Potassium 3.4 L (3.5-5.1) mmol/L Chloride 109 H (98-107) mmol/L Carbon Dioxide 21 L (22-30) mmol/L Calcium 7.6 L (8.4-10.2) mg/dL Microbiology - Last 24 Hours (Table) 05/30/24 08:40 Blood Culture - Preliminary Blood
[2024-06-01] MEDS: CEFEPIME 2 GM in SODIUM CHLORIDE 0.9% 100 ML IVPB SCH (15:13)
--- NOTE | 2024-06-01 15:15 | P.PN ---
Subjective Progress Note Date: 06/01/24 Interval History: This is a 64-year-old female with past medical history significant for atrial fibrillation status post ablation, previously on Eliquis currently on hold, history of hypertension, hyperlipidemia who presented to ER with a complaint of fever, chills, night sweats, right-sided abdominal wall pain, redness, tenderness and warmth for the last 4 to 5 days. Patient was recently hospitalized about 3 weeks ago when patient had a abdominal wall hematoma following a fall, underwent IR drainage, was evaluated by general surgery and was discharged home with drain which was taken out about a week ago. Patient stated that for couple of days she did okay and was taking oral doxycycline, for the last 4 to 5 days patient noticed that her abdominal wall was getting swollen again, noticed more warmth, pain and tenderness, patient also reported high- grade fevers up to 102.6 yesterday, also reported chills and night sweats. Patient denied any sick contacts. Patient stated that she has been off Eliquis for more than a week. In the ED patient afebrile, heart rate 80, respiratory rate 20, blood pressure 124/58, saturating 98% on room air. Labs showed WBCs 12.4, hemoglobin 10.7, platelet 220, absolute neutrophil count 10.4. INR 1.0. BMP was mostly unremarkable. LFTs unremarkable. UA showed moderate leukocyte Estrace, patient asymptomatic. COVID influenza and RSV negative. CT abdomen pelvis showed fluid collection measuring 20 X11 X 14 cm in the right anterior lateral abdominal wall is now approximately 18 X4.7X 11 cm, but the wall of collection has become thickened and ill-defined, significant edema/inflammatory changes in the surrounding subcutaneous soft tissue, in addition multiple bubbles of air within the collection and the findings are consistent with an abscess. 05/31/2024: Patient reported that right-sided abdominal pain and swelling is better. Complained of night sweats. Patient had a temperature of 99.4 today, heart rate 78, respiratory rate 17, blood pressure 119/68, saturating 97% on room air. WBCs 9.6, hemoglobin 9.7, platelet 184. BMP unremarkable. Awaiting further general surgery recommendations. Infectious disease following, currently on vancomycin and cefepime. 06/01/2024 Patient was seen and examined today. Patient underwent IR guided drain placement today. Vital stable, temperature 99, heart rate 80, respiratory rate 18, blood pressure 111/66. WBCs 9, hemoglobin 9.4, platelet 215. Sodium 136, potassium 3.4, creatinine 0.71, BUN 11. Blood culture negative so far. Assessment and plan: Abdominal wall abscess: Recent abdominal wall hematoma after fall, had a drain, taken out about a week ago Presented with fever, chills, night sweats, right-sided abdominal wall redness warmth and tenderness. CT abdomen pelvis concerning for abdominal wall abscess General surgery consult Infectious disease consult Vancomycin and cefepime Blood cultures Status post IR drainage placement 06/01/2024. Hypertension: Hyperlipidemia: Paroxysmal atrial fibrillation status post ablation: Continue home meds. DVT prophylaxis SCD Monitor vital signs and labs Labs and medication were reviewed. Continue same treatment. Further recommendations as per clinical course of the patient PHYSICAL EXAMINATION: GENERAL: The patient is A&O x3, NAD HEENT: EOMI, Sclerae anicteric, Moist Mucous membranes Neck: Supple, Non tender, No JVD PULMONARY: Equal breath souds B/L, No wheezing, No crackles. CARDIOVASCULAR: S1, S2 present. No murmurs, rubs, or gallops. ABDOMEN: Extensive erythema, warmth, tenderness right-sided abdominal fall extending posterior to flank. Right lower abdominal drain in place. MUSCULOSKELETAL: No edema, No cyanosis. No clubbing. Normal ROM. Intact peripheral pulses. EXTREMITIES: No cyanosis, clubbing, or pedal edema. NEUROLOGICAL: CN 2-12 grossly intact. No FND -12 grossly intact. No FND Skin: No Rash REVIEW OF SYSTEMS: CONSTITUTIONAL: No fever or chills. CARDIOVASCULAR: No chest pain, palpitations or syncope. PULMONARY: No shortness of breath, no cough, sore throat. GASTROINTESTINAL: No nausea, vomiting, diarrhea, abdominal pain. : No Dysuria, urgency, frequency. Extremities: No edema. NEUROLOGICAL: No headaches, no weakness, or numbness Dictation was produced using [employer] dictation software. please excuse any grammatical, word or spelling errors. Objective - Vital Signs Vital signs: Vital Signs Temp 99.0 F 06/01/24 14:00 Pulse 80 06/01/24 14:00 Resp 18 06/01/24 14:00 BP 111/66 06/01/24 14:00 Pulse Ox 94 L 06/01/24 14:00 FiO2 Intake & Output 05/31/24 06/01/24 06/01/24 18:59 06:59 18:59 Intake Total 120 Balance 120 Intake: Oral 120 Other: # Voids 2 1 - Labs CBC & Chem 7: 06/01/24 02:24 06/01/24 02:24 Labs: Abnormal Lab Results - Last 24 Hours (Table) 06/01/24 06/01/24 Range/Units 02:24 02:24 RBC 3.18 L (4.10-5.20) X 10*6/uL Hgb 9.4 L (12.0-15.0) g/dL Hct 30.0 L (37.2-46.3) % MCHC 31.3 L (32.0-37.0) g/dL Immature Gran # 0.08 H (0.00-0.04) X 10*3/uL Sodium 136 L (137-145) mmol/L Potassium 3.4 L (3.5-5.1) mmol/L Chloride 109 H (98-107) mmol/L Carbon Dioxide 21 L (22-30) mmol/L Calcium 7.6 L (8.4-10.2) mg/dL Microbiology - Last 24 Hours (Table) 05/30/24 08:40 Blood Culture - Preliminary Blood
[2024-06-02] MEDS: VANCOMYCIN TROUGH DUE 1 EACH MISC MISCELLANE ONE (06:54)
[2024-06-02 08:36] LABS: Basophils # (A) 0.02 X 10*3/uL (0.00-0.10); Basophils % (A) 0.3 %; Eosinophils # (A) 0.11 X 10*3/uL (0.04-0.35); Eosinophils % (A) 1.5 %; HCT 27.4 % (37.2-46.3); HGB 8.6 g/dL (12.0-15.0); Lymphocytes # (A) 1.13 X 10*3/uL (0.90-5.00); MCH 28.6 pg (27.0-32.0); MCHC 31.4 g/dL (32.0-37.0); Mean Platelet Volume 10.3 FL (9.5-12.2); Monocytes # (A) 0.51 X 10*3/uL (0.20-1.00); Monocytes % (A) 6.8 %; NRBC Per 100 WBC 0 X 10*3/uL (0.00-0.01); Neutrophils # (A) 5.61 X 10*3/uL (1.80-7.70); Neutrophils % (A) 74.7 %; Platelet Count 204 X 10*3/uL (140-440); RBC 3.01 X 10*6/uL (4.10-5.20); RDW 14.3 % (11.5-14.5); WBC 7.51 X 10*3/uL (4.50-10.00)
[2024-06-02 08:58] LABS: BUN/Creat Ratio 13.14 Ratio (12.00-20.00); Blood Urea Nitrogen 9.2 mg/dL (9.0-27.0); Calcium 7.8 mg/dL (8.7-10.3); Carbon Dioxide 22.4 mmol/L (21.6-31.8); Chloride 108 mmol/L (96-109); Glucose 108 mg/dL (70-110); Potassium 3.3 mmol/L (3.5-5.5); Sodium 141 mmol/L (135-145)
--- NOTE | 2024-06-02 10:19 | P.PN ---
Subjective Progress Note Date: 06/01/24 Principal diagnosis: Reason for follow-up is abdominal wall abscess/cellulitis Patient is a 64-year-old female past medical history significant for hypertension hyperlipidemia atrial fibrillation on Eliquis apparently patient did have a fall few weeks ago for the patient was admitted to the hospital and has developed abdominal wall hematoma patient is status post IR drainage culture were negative discharged on doxycycline who presented back to the hospital with fever worsening abdominal wall swelling and redness and CT has been suspicious for an abscess. Patient is status post IR drainage of the abdominal wall abscess on 06/01/2024. On today's evaluation that is 06/01/2024,the patient remains to be afebrile, patient is on room air not requiring supplemental oxygen and denies any shortness of breath no chest pain or cough.Patient denies having any nausea or vomiting, abdominal pain slightly decreased no diarrhea. Patient white count is 9.4, creatinine 0.71 blood cultures currently pending Objective - Vital Signs Vital signs: Vital Signs Temp 98.7 F 06/01/24 07:15 Pulse 66 06/01/24 07:15 Resp 17 06/01/24 07:15 BP 101/63 06/01/24 07:15 Pulse Ox 95 06/01/24 07:15 FiO2 Intake & Output 05/31/24 06/01/24 06/01/24 18:59 06:59 18:59 Intake Total 120 Balance 120 Intake: Oral 120 Other: # Voids 2 1 - Exam GENERAL DESCRIPTION: An elderly female lying in bed in no distress RESPIRATORY SYSTEM: Unlabored breathing , decreased breath sounds at bases HEART: S1 S2 regular rate and rhythm , ABDOMEN: Soft , abdominal wall drainage catheter with mucopurulent drainage EXTREMITIES: No edema feet - Labs CBC & Chem 7: 06/02/24 06:08 06/02/24 06:08 Labs: Abnormal Lab Results - Last 24 Hours (Table) 06/01/24 06/01/24 Range/Units 02:24 02:24 RBC 3.18 L (4.10-5.20) X 10*6/uL Hgb 9.4 L (12.0-15.0) g/dL Hct 30.0 L (37.2-46.3) % MCHC 31.3 L (32.0-37.0) g/dL Immature Gran # 0.08 H (0.00-0.04) X 10*3/uL Sodium 136 L (137-145) mmol/L Potassium 3.4 L (3.5-5.1) mmol/L Chloride 109 H (98-107) mmol/L Carbon Dioxide 21 L (22-30) mmol/L Calcium 7.6 L (8.4-10.2) mg/dL Microbiology - Last 24 Hours (Table) 05/30/24 08:40 Blood Culture - Preliminary Blood Assessment and Plan (1) Abdominal wall abscess Current Visit: Yes Status: Acute Code(s): L02.211 - CUTANEOUS ABSCESS OF ABDOMINAL WALL SNOMED Code(s): 81626171 (2) Leukocytosis Current Visit: Yes Status: Acute Code(s): D72.829 - ELEVATED WHITE BLOOD CELL COUNT, UNSPECIFIED SNOMED Code(s): 754951102 Plan: 1patient presented to hospital with right-sided abdominal wall swelling redness in this patient who recently did have abdominal wall hematoma after a fall and did have a drainage procedure on 05/08/2024 the culture were negative now presenting back to the hospital with worsening swelling and redness pain and fever with abnormal CT suspicious for an abscess we will likely need to cover for both gram-positive skin gerard as well as gram-negative pathogen 2-General Surgery has seen the patient and asked IR to drain the abscess status post completion with a culture pending 3-patient currently being treated with vancomycin and cefepime while waiting for the culture to finalize determine discharge antibiotics Dictation was produced using [employer] dictation software. please excuse any grammatical, word or spelling errors. Time with Patient: Less than 30
[2024-06-02] MEDS: DOCUSATE 100 MG CAP PO SCH (12:33)
--- NOTE | 2024-06-02 13:57 | P.PN ---
Subjective Progress Note Date: 06/02/24 Interval History: This is a 64-year-old female with past medical history significant for atrial fibrillation status post ablation, previously on Eliquis currently on hold, history of hypertension, hyperlipidemia who presented to ER with a complaint of fever, chills, night sweats, right-sided abdominal wall pain, redness, tenderness and warmth for the last 4 to 5 days. Patient was recently hospitalized about 3 weeks ago when patient had a abdominal wall hematoma following a fall, underwent IR drainage, was evaluated by general surgery and was discharged home with drain which was taken out about a week ago. Patient stated that for couple of days she did okay and was taking oral doxycycline, for the last 4 to 5 days patient noticed that her abdominal wall was getting swollen again, noticed more warmth, pain and tenderness, patient also reported high- grade fevers up to 102.6 yesterday, also reported chills and night sweats. Patient denied any sick contacts. Patient stated that she has been off Eliquis for more than a week. In the ED patient afebrile, heart rate 80, respiratory rate 20, blood pressure 124/58, saturating 98% on room air. Labs showed WBCs 12.4, hemoglobin 10.7, platelet 220, absolute neutrophil count 10.4. INR 1.0. BMP was mostly unremarkable. LFTs unremarkable. UA showed moderate leukocyte Estrace, patient asymptomatic. COVID influenza and RSV negative. CT abdomen pelvis showed fluid collection measuring 20 X11 X 14 cm in the right anterior lateral abdominal wall is now approximately 18 X4.7X 11 cm, but the wall of collection has become thickened and ill-defined, significant edema/inflammatory changes in the surrounding subcutaneous soft tissue, in addition multiple bubbles of air within the collection and the findings are consistent with an abscess. 05/31/2024: Patient reported that right-sided abdominal pain and swelling is better. Complained of night sweats. Patient had a temperature of 99.4 today, heart rate 78, respiratory rate 17, blood pressure 119/68, saturating 97% on room air. WBCs 9.6, hemoglobin 9.7, platelet 184. BMP unremarkable. Awaiting further general surgery recommendations. Infectious disease following, currently on vancomycin and cefepime. 06/01/2024 Patient was seen and examined today. Patient underwent IR guided drain placement today. Vital stable, temperature 99, heart rate 80, respiratory rate 18, blood pressure 111/66. WBCs 9, hemoglobin 9.4, platelet 215. Sodium 136, potassium 3.4, creatinine 0.71, BUN 11. Blood culture negative so far. 06/02/2024 Patient was seen and examined today. Abdominal pain is controlled. Drain in place with brownish discharge in tubing and bag. Remained afebrile, heart rate 62, respiratory rate 16, blood pressure 118/77, saturating 98% room air. Complains of constipation, started on Senokot MiraLAX. WBCs normal 7.5, hemoglobin 8.6, platelet 204. BMP unremarkable, potassium 3.3 on pressure was noted protocol. Assessment and plan: Abdominal wall abscess: Recent abdominal wall hematoma after fall, had a drain, taken out about a week ago Presented with fever, chills, night sweats, right-sided abdominal wall redness warmth and tenderness. CT abdomen pelvis concerning for abdominal wall abscess General surgery consult Infectious disease consulted and following Vancomycin and cefepime Blood cultures Fluid culture. Status post IR drainage placement 06/01/2024. Hypertension: Hyperlipidemia: Paroxysmal atrial fibrillation status post ablation: Continue home meds. Holding Eliquis. DVT prophylaxis Subcutaneous Lovenox Monitor vital signs and labs Labs and medication were reviewed. Continue same treatment. Further recommendations as per clinical course of the patient PHYSICAL EXAMINATION: GENERAL: The patient is A&O x3, NAD HEENT: EOMI, Sclerae anicteric, Moist Mucous membranes Neck: Supple, Non tender, No JVD PULMONARY: Equal breath souds B/L, No wheezing, No crackles. CARDIOVASCULAR: S1, S2 present. No murmurs, rubs, or gallops. ABDOMEN: Extensive erythema, warmth, tenderness right-sided abdominal fall extending posterior to flank. Right lower abdominal drain in place. MUSCULOSKELETAL: No edema, No cyanosis. No clubbing. Normal ROM. Intact peripheral pulses. EXTREMITIES: No cyanosis, clubbing, or pedal edema. NEUROLOGICAL: CN 2-12 grossly intact. No FND -12 grossly intact. No FND Skin: No Rash REVIEW OF SYSTEMS: CONSTITUTIONAL: No fever or chills. CARDIOVASCULAR: No chest pain, palpitations or syncope. PULMONARY: No shortness of breath, no cough, sore throat. GASTROINTESTINAL: No nausea, vomiting, diarrhea, abdominal pain. : No Dysuria, urgency, frequency. Extremities: No edema. NEUROLOGICAL: No headaches, no weakness, or numbness Dictation was produced using [employer] dictation software. please excuse any grammatical, word or spelling errors. Objective - Vital Signs Vital signs: Vital Signs Temp 98.7 F 06/02/24 07:05 Pulse 62 06/02/24 07:05 Resp 16 06/02/24 08:45 BP 118/71 06/02/24 07:05 Pulse Ox 98 06/02/24 07:05 FiO2 Intake & Output 06/01/24 06/02/24 06/02/24 18:59 06:59 18:59 Intake Total 220 Output Total 80 Balance 220 -80 Intake: Oral 220 Output: Drainage 80 Right Abdomen 80 Other: # Voids 3 2 - Labs CBC & Chem 7: 06/02/24 06:08 06/02/24 06:08 Labs: Abnormal Lab Results - Last 24 Hours (Table) 06/02/24 06/02/24 Range/Units 06:08 06:08 RBC 3.01 L (4.10-5.20) X 10*6/uL Hgb 8.6 L (12.0-15.0) g/dL Hct 27.4 L (37.2-46.3) % MCHC 31.4 L (32.0-37.0) g/dL Immature Gran # 0.13 H (0.00-0.04) X 10*3/uL Potassium 3.3 L (3.5-5.5) mmol/L Calcium 7.8 L (8.7-10.3) mg/dL Microbiology - Last 24 Hours (Table) 05/30/24 08:40 Blood Culture - Preliminary Blood
[2024-06-02] MEDS ORDERED: Potassium Replacement Protocol 1 EACH MISC MISCELLANE PRN (13:58)
[2024-06-02] MEDS ORDERED: polyethylene glycoL 3350 17 GM POWD.PACK PO PRN (13:58)
[2024-06-02] MEDS: POTASSIUM CHLORIDE ER 20 MEQ TAB.ER PO SCH (14:32)
[2024-06-02] MEDS: ENOXAPARIN 40 MG/0.4 ML SYRINGE SQ SCH (14:33)
--- NOTE | 2024-06-02 16:06 | P.PN ---
Subjective Progress Note Date: 06/02/24 SURGICAL PROGRESS NOTE CHIEF COMPLAINT: Abdominal wall abscess HISTORY OF PRESENT ILLNESS: Patient is status post drain placement for the right abdominal wall abscess. Drainage is purulent. 50 mL purulent output removed today. She is on IV antibiotics. She continues to have pain on that right flank abdomen area. Afebrile. WBC 7.51 Hgb 9.4-8.6 PHYSICAL EXAM: VITAL SIGNS: Reviewed. GENERAL: Well-developed in no acute distress. ABDOMEN: Soft. Nondistended. Right flank tenderness with palpation and erythema and drain NEUROLOGIC: Alert and oriented. Cranial nerves II through XII grossly intact. ASSESSMENT: 1. Right anterior abdominal wall abscess 2. Recent fall with right abdominal wall hematoma during her last admission PLAN: -Continue IR drain -Continue antibiotics per ID service -Repeat CBC in a.m. Physician Clay Miller note has been reviewed by physician. Signing provider agrees with the documented findings, assessment, and plan of care. Attestation Patient seen and examined at bedside. Continues to have purulent drainage into IR drain. We will continue drain at this time. Continue antibiotics per ID service. Currently no further plan for surgical intervention. Eugene Pham DO Objective - Vital Signs Vital signs: Vital Signs Temp 98.7 F 06/02/24 07:05 Pulse 62 06/02/24 07:05 Resp 16 06/02/24 08:45 BP 118/71 06/02/24 07:05 Pulse Ox 98 06/02/24 07:05 FiO2 Intake & Output 06/01/24 06/02/24 06/02/24 18:59 06:59 18:59 Intake Total 220 Output Total 80 50 Balance 220 -80 -50 Intake: Oral 220 Output: Drainage 80 50 Right Abdomen 80 50 Other: # Voids 3 2 - Labs CBC & Chem 7: 06/02/24 06:08 06/02/24 06:08 Labs: Abnormal Lab Results - Last 24 Hours (Table) 06/02/24 06/02/24 Range/Units 06:08 06:08 RBC 3.01 L (4.10-5.20) X 10*6/uL Hgb 8.6 L (12.0-15.0) g/dL Hct 27.4 L (37.2-46.3) % MCHC 31.4 L (32.0-37.0) g/dL Immature Gran # 0.13 H (0.00-0.04) X 10*3/uL Potassium 3.3 L (3.5-5.5) mmol/L Calcium 7.8 L (8.7-10.3) mg/dL Microbiology - Last 24 Hours (Table) 05/30/24 08:40 Blood Culture - Preliminary Blood
[2024-06-03] MEDS: VANCOMYCIN 1,750 MG in SODIUM CHLORIDE 0.9% 500 ML 500 ML IVPB SCH (00:29)
[2024-06-03 03:44] LABS: ALT 21 U/L (4-34); AST 21 U/L (14-36); African American GFR (CKD) >90 (>60 ml/min/1.73 sqM); Albumin 2.5 g/dL (3.5-5.0); Alkaline Phosphatase 118 U/L (38-126); Anion Gap 6 mmol/L; Blood Urea Nitrogen 8 mg/dL (7-17); Calcium 8.1 mg/dL (8.4-10.2); Carbon Dioxide 22 mmol/L (22-30); Chloride 111 mmol/L (98-107); Globulin 2.5 g/dL; Glucose 90 mg/dL (74-99); Non-African American GFR(CKD) >90 (>60 ml/min/1.73 sqM); Potassium 3.5 mmol/L (3.5-5.1); Sodium 139 mmol/L (137-145); Total Bilirubin 0.4 mg/dL (0.2-1.3)
[2024-06-03] MEDS: polyethylene glycoL 3350 17 GM POWD.PACK PO SCH (07:42)
[2024-06-03 08:42] LABS: Basophils # (A) 0.04 X 10*3/uL (0.00-0.10); Basophils % (A) 0.6 %; Eosinophils # (A) 0.09 X 10*3/uL (0.04-0.35); Eosinophils % (A) 1.2 %; HCT 31.2 % (37.2-46.3); HGB 9.4 g/dL (12.0-15.0); MCH 28.5 pg (27.0-32.0); MCHC 30.1 g/dL (32.0-37.0); MCV 94.5 FL (80.0-97.0); Mean Platelet Volume 10.5 FL (9.5-12.2); Monocytes # (A) 0.45 X 10*3/uL (0.20-1.00); Monocytes % (A) 6.2 %; NRBC Per 100 WBC 0 X 10*3/uL (0.00-0.01); Neutrophils # (A) 5.14 X 10*3/uL (1.80-7.70); Neutrophils % (A) 71.2 %; Platelet Count 228 X 10*3/uL (140-440); RDW 14.4 % (11.5-14.5); WBC 7.22 X 10*3/uL (4.50-10.00)
--- NOTE | 2024-06-03 14:39 | P.PN ---
Subjective Progress Note Date: 06/02/24 Principal diagnosis: Reason for follow-up is abdominal wall abscess/cellulitis Patient is a 64-year-old female past medical history significant for hypertension hyperlipidemia atrial fibrillation on Eliquis apparently patient did have a fall few weeks ago for the patient was admitted to the hospital and has developed abdominal wall hematoma patient is status post IR drainage culture were negative discharged on doxycycline who presented back to the hospital with fever worsening abdominal wall swelling and redness and CT has been suspicious for an abscess. Patient is status post IR drainage of the abdominal wall abscess on 06/01/2024. On today's evaluation that is 06/02/2024, the patient continues to be afebrile, the patient is on room air and breathing comfortably, the Pt denies having any chest pain or cough, the patient abdominal pain has decreased in intensity still having purulent drainage to the drainage catheter no nausea vomiting or diarrhea. The patient white count 7.51, creatinine 0.7 Objective - Vital Signs Vital signs: Vital Signs Temp 98.7 F 06/02/24 07:05 Pulse 62 06/02/24 07:05 Resp 16 06/02/24 08:45 BP 118/71 06/02/24 07:05 Pulse Ox 98 06/02/24 07:05 FiO2 Intake & Output 06/01/24 06/02/24 06/02/24 18:59 06:59 18:59 Intake Total 220 Output Total 80 Balance 220 -80 Intake: Oral 220 Output: Drainage 80 Right Abdomen 80 Other: # Voids 3 2 - Exam GENERAL DESCRIPTION: An elderly female lying in bed in no distress RESPIRATORY SYSTEM: Unlabored breathing , decreased breath sounds at bases HEART: S1 S2 regular rate and rhythm , ABDOMEN: Soft , abdominal wall drainage catheter with mucopurulent drainage EXTREMITIES: No edema feet - Labs CBC & Chem 7: 06/03/24 02:12 06/03/24 02:12 Labs: Abnormal Lab Results - Last 24 Hours (Table) 06/02/24 06/02/24 Range/Units 06:08 06:08 RBC 3.01 L (4.10-5.20) X 10*6/uL Hgb 8.6 L (12.0-15.0) g/dL Hct 27.4 L (37.2-46.3) % MCHC 31.4 L (32.0-37.0) g/dL Immature Gran # 0.13 H (0.00-0.04) X 10*3/uL Potassium 3.3 L (3.5-5.5) mmol/L Calcium 7.8 L (8.7-10.3) mg/dL Microbiology - Last 24 Hours (Table) 05/30/24 08:40 Blood Culture - Preliminary Blood Assessment and Plan (1) Abdominal wall abscess Current Visit: Yes Status: Acute Code(s): L02.211 - CUTANEOUS ABSCESS OF ABDOMINAL WALL SNOMED Code(s): 42901127 (2) Leukocytosis Current Visit: Yes Status: Acute Code(s): D72.829 - ELEVATED WHITE BLOOD CELL COUNT, UNSPECIFIED SNOMED Code(s): 137915808 Plan: 1patient presented to hospital with right-sided abdominal wall swelling redness in this patient who recently did have abdominal wall hematoma after a fall and did have a drainage procedure on 05/08/2024 the culture were negative now presenting back to the hospital with worsening swelling and redness pain and fever with abnormal CT suspicious for an abscess we will likely need to cover for both gram-positive skin gerard as well as gram-negative pathogen 2-General Surgery has seen the patient and asked IR to drain the abscess status post completion with a culture pending 3-patient is afebrile white count normal cultures are pending, will continue vancomycin and cefepime while waiting for the culture Dictation was produced using [employer] dictation software. please excuse any grammatical, word or spelling errors. Time with Patient: Less than 30
--- NOTE | 2024-06-03 14:39 | P.PN ---
Subjective Progress Note Date: 06/03/24 Principal diagnosis: Reason for follow-up is abdominal wall abscess/cellulitis Patient is a 64-year-old female past medical history significant for hypertension hyperlipidemia atrial fibrillation on Eliquis apparently patient did have a fall few weeks ago for the patient was admitted to the hospital and has developed abdominal wall hematoma patient is status post IR drainage culture were negative discharged on doxycycline who presented back to the hospital with fever worsening abdominal wall swelling and redness and CT has been suspicious for an abscess. Patient is status post IR drainage of the abdominal wall abscess on 06/01/2024. On today's evaluation that is 06/03/2024, Patient is afebrile patient is currently on room air and denies having any shortness of breath, the patient denies any chest pain or cough, the patient denies any nausea vomiting still h aving abdominal pain on movement and output in the drainage catheter no diarrhea. Patient white count 7.22, creatinine 0.62 cultures are currently pending Objective - Vital Signs Vital signs: Vital Signs Temp 98.0 F 06/03/24 08:05 Pulse 72 06/03/24 08:05 Resp 16 06/03/24 10:45 BP 121/73 06/03/24 08:05 Pulse Ox 95 06/03/24 08:05 FiO2 Intake & Output 06/02/24 06/03/24 06/03/24 18:59 06:59 18:59 Output Total 50 Balance -50 Output: Drainage 50 Right Abdomen 50 Other: # Voids 3 2 - Exam GENERAL DESCRIPTION: An elderly female lying in bed in no distress RESPIRATORY SYSTEM: Unlabored breathing , decreased breath sounds at bases HEART: S1 S2 regular rate and rhythm , ABDOMEN: Soft , abdominal wall drainage catheter with mucopurulent drainage EXTREMITIES: No edema feet - Labs CBC & Chem 7: 06/03/24 02:12 06/03/24 02:12 Labs: Abnormal Lab Results - Last 24 Hours (Table) 06/03/24 06/03/24 Range/Units 02:12 02:12 RBC 3.30 L (4.10-5.20) X 10*6/uL Hgb 9.4 L (12.0-15.0) g/dL Hct 31.2 L (37.2-46.3) % MCHC 30.1 L (32.0-37.0) g/dL Immature Gran # 0.20 H (0.00-0.04) X 10*3/uL Chloride 111 H (98-107) mmol/L Calcium 8.1 L (8.4-10.2) mg/dL Total Protein 5.0 L (6.3-8.2) g/dL Albumin 2.5 L (3.5-5.0) g/dL Microbiology - Last 24 Hours (Table) 06/01/24 12:30 Gram Stain - Preliminary Aspirate Body Fluid Culture - Preliminary 05/30/24 08:40 Blood Culture - Preliminary Blood Assessment and Plan (1) Abdominal wall abscess Current Visit: Yes Status: Acute Code(s): L02.211 - CUTANEOUS ABSCESS OF ABDOMINAL WALL SNOMED Code(s): 30593825 (2) Leukocytosis Current Visit: Yes Status: Acute Code(s): D72.829 - ELEVATED WHITE BLOOD CELL COUNT, UNSPECIFIED SNOMED Code(s): 436239784 Plan: 1patient presented to hospital with right-sided abdominal wall swelling redness in this patient who recently did have abdominal wall hematoma after a fall and did have a drainage procedure on 05/08/2024 the culture were negative now presenting back to the hospital with worsening swelling and redness pain and fever with abnormal CT suspicious for an abscess we will likely need to cover for both gram-positive skin gerard as well as gram-negative pathogen 2-General Surgery has seen the patient and asked IR to drain the abscess status post completion with a culture pending 3-patient is afebrile white count normal cultures are pending, 4patient will continue vancomycin and cefepime while waiting for the culture, to determine discharge antibiotics which may be IV Dictation was produced using [employer] dictation software. please excuse any grammatical, word or spelling errors. Time with Patient: Less than 30
--- NOTE | 2024-06-03 15:04 | P.PN ---
Subjective Progress Note Date: 06/03/24 SURGICAL PROGRESS NOTE CHIEF COMPLAINT: Abdominal wall abscess HISTORY OF PRESENT ILLNESS: Patient is status post drain placement for the right abdominal wall abscess. Drainage is purulent. Patient with 50 mL purulent drainage. Patient continues to complain of right flank abdominal pain. Afebrile. WBC 7.22 Hgb 9.4 PHYSICAL EXAM: VITAL SIGNS: Reviewed. GENERAL: Well-developed in no acute distress. ABDOMEN: Soft. Nondistended. Right flank tenderness with palpation and erythema and drain in place NEUROLOGIC: Alert and oriented. Cranial nerves II through XII grossly intact. ASSESSMENT: 1. Right anterior abdominal wall abscess status post drain placement 2. Recent fall with right abdominal wall hematoma during her last admission PLAN: -Continue IR drain -Continue antibiotics per ID service -No further surgical intervention planned Physician Patient Services Specialist note has been reviewed by physician. Signing provider agrees with the documented findings, assessment, and plan of care. Objective - Vital Signs Vital signs: Vital Signs Temp 98.0 F 06/03/24 13:50 Pulse 98 06/03/24 13:50 Resp 16 06/03/24 13:50 BP 143/86 06/03/24 13:50 Pulse Ox 97 06/03/24 13:50 FiO2 Intake & Output 06/02/24 06/03/24 06/03/24 18:59 06:59 18:59 Intake Total 250 Output Total 50 Balance -50 250 Intake: Oral 250 Output: Drainage 50 Right Abdomen 50 Other: # Voids 3 2 - Labs CBC & Chem 7: 06/03/24 02:12 06/03/24 02:12 Labs: Abnormal Lab Results - Last 24 Hours (Table) 06/03/24 06/03/24 Range/Units 02:12 02:12 RBC 3.30 L (4.10-5.20) X 10*6/uL Hgb 9.4 L (12.0-15.0) g/dL Hct 31.2 L (37.2-46.3) % MCHC 30.1 L (32.0-37.0) g/dL Immature Gran # 0.20 H (0.00-0.04) X 10*3/uL Chloride 111 H (98-107) mmol/L Calcium 8.1 L (8.4-10.2) mg/dL Total Protein 5.0 L (6.3-8.2) g/dL Albumin 2.5 L (3.5-5.0) g/dL Microbiology - Last 24 Hours (Table) 06/01/24 12:30 Gram Stain - Preliminary Aspirate Body Fluid Culture - Preliminary 05/30/24 08:40 Blood Culture - Preliminary Blood Assessment and Plan Assessment: 64 yo female w/ infected hematoma -continue drainage per ID -trend wbc -defer to ID for discharge planning Time with Patient: Less than 30
--- NOTE | 2024-06-03 15:16 | P.PN ---
Subjective Progress Note Date: 06/03/24 This is a 64-year-old female with past medical history significant for atrial fibrillation status post ablation, previously on Eliquis currently on hold, history of hypertension, hyperlipidemia who presented to ER with a complaint of fever, chills, night sweats, right-sided abdominal wall pain, redness, te nderness and warmth for the last 4 to 5 days. Patient was recently hospitalized about 3 weeks ago when patient had a abdominal wall hematoma following a fall, underwent IR drainage, was evaluated by general surgery and was discharged home with drain which was taken out about a week ago. Patient stated that for couple of days she did okay and was taking oral doxycycline, for the last 4 to 5 days patient noticed that her abdominal wall was getting swollen again, noticed more warmth, pain and tenderness, patient also reported high-grade fevers up to 102.6 yesterday, also reported chills and night sweats. Patient denied any sick contacts. Patient stated that she has been off Eliquis for more than a week. In the ED patient afebrile, heart rate 80, respiratory rate 20, blood pressure 124/58, saturating 98% on room air. Labs showed WBCs 12.4, hemoglobin 10.7, platelet 220, absolute neutrophil count 10.4. INR 1.0. BMP was mostly unremarkable. LFTs unremarkable. UA showed moderate leukocyte Estrace, patient asymptomatic. COVID influenza and RSV negative. CT abdomen pelvis showed fluid collection measuring 20 X11 X 14 cm in the right anterior lateral abdominal wall is now approximately 18 X4.7X 11 cm, but the wall of collection has become thickened and ill-defined, significant mike ma/inflammatory changes in the surrounding subcutaneous soft tissue, in addition multiple bubbles of air within the collection and the findings are consistent with an abscess. 05/31/2024: Patient reported that right-sided abdominal pain and swelling is better. Complained of night sweats. Patient had a temperature of 99.4 today, heart rate 78, respiratory rate 17, blood pressure 119/68, saturating 97% on room air. WBCs 9.6, hemoglobin 9.7, platelet 184. BMP unremarkable. Awaiting further [facility] surgery recommendations. Infectious disease following, currently on vancomycin and cefepime. 06/01/2024 Patient was seen and examined today. Patient underwent IR guided drain placement today. Vital stable, temperature 99, heart rate 80, respiratory rate 18, blood pressure 111/66. WBCs 9, hemoglobin 9.4, platelet 215. Sodium 136, potassium 3.4, creatinine 0.71, BUN 11. Blood culture negative so far. 06/02/2024 Patient was seen and examined today. Abdominal pain is controlled. Drain in place with brownish discharge in tubing and bag. Remained afebrile, heart rate 62, respiratory rate 16, blood pressure 118/77, saturating 98% room air. Complains of constipation, started on Senokot MiraLAX. WBCs normal 7.5, hemoglobin 8.6, platelet 204. BMP unremarkable, potassium 3.3 on pressure was noted protocol. 06/03. Patient seen and examined. Still having right-sided abdominal pain. States redness has improved REVIEW OF SYSTEMS: CONSTITUTIONAL: No fever, no malaise,. CARDIOVASCULAR: No chest pain, no palpitations, no syncope. PULMONARY: No shortness of breath, no cough, GASTROINTESTINAL: No diarrhea, no nausea, no vomiting, no abdominal pain. NEUROLOGICAL: No headaches, no weakness, PHYSICAL EXAMINATION: GENERAL: The patient is alert and oriented x3, not in any acute distress. Well developed, well nourished. HEENT: Pupils are round and equally reacting to light. EOMI. No scleral icterus. No conjunctival pallor. Normocephalic, atraumatic. No pharyngeal erythema. No thyromegaly. CARDIOVASCULAR: S1 and S2 present. No murmurs, rubs, or gallops. PULMONARY: Chest is clear to auscultation, no wheezing or crackles. ABDOMEN: Soft, nontender, nondistended, right-sided abdominal drain seen, erythema improved MUSCULOSKELETAL: No joint swelling or deformity. EXTREMITIES: No cyanosis, clubbing, or pedal edema. NEUROLOGICAL: Gross neurological examination did not reveal any focal deficits. SKIN: No rashes. Assessment and plan Abdominal wall abscess: Recent abdominal wall hematoma after fall, had a drain, taken out about a week ago Presented with fever, chills, night sweats, right-sided abdominal wall redness warmth and tenderness. CT abdomen pelvis concerning for abdominal wall abscess General surgery consult Infectious disease consulted and following Vancomycin and cefepime Blood cultures Fluid culture. Status post IR drainage placement 06/01/2024. Hypertension: Hyperlipidemia: Paroxysmal atrial fibrillation status post ablation: Continue home meds. Holding Eliquis. Labs and medication were reviewed.. Continue same treatment. Continue with symptomatic treatment. Resume home medication. Monitor labs and vitals. DVT and GI prophylaxis. Further recommendations as per clinical course of the patient Dictation was produced using [employer] dictation software. please excuse any grammatical, word or spelling errors. Objective - Vital Signs Vital signs: Vital Signs Temp 98.0 F 06/03/24 13:50 Pulse 98 06/03/24 13:50 Resp 16 06/03/24 13:50 BP 143/86 06/03/24 13:50 Pulse Ox 97 06/03/24 13:50 FiO2 Intake & Output 06/02/24 06/03/24 06/03/24 18:59 06:59 18:59 Intake Total 250 Output Total 50 Balance -50 250 Intake: Oral 250 Output: Drainage 50 Right Abdomen 50 Other: # Voids 3 2 - Labs CBC & Chem 7: 06/03/24 02:12 06/03/24 02:12 Labs: Abnormal Lab Results - Last 24 Hours (Table) 06/03/24 06/03/24 Range/Units 02:12 02:12 RBC 3.30 L (4.10-5.20) X 10*6/uL Hgb 9.4 L (12.0-15.0) g/dL Hct 31.2 L (37.2-46.3) % MCHC 30.1 L (32.0-37.0) g/dL Immature Gran # 0.20 H (0.00-0.04) X 10*3/uL Chloride 111 H (98-107) mmol/L Calcium 8.1 L (8.4-10.2) mg/dL Total Protein 5.0 L (6.3-8.2) g/dL Albumin 2.5 L (3.5-5.0) g/dL Microbiology - Last 24 Hours (Table) 06/01/24 12:30 Gram Stain - Preliminary Aspirate Body Fluid Culture - Preliminary 05/30/24 08:40 Blood Culture - Preliminary Blood
[2024-06-04 04:11] LABS: ALT 18 U/L (4-34); AST 25 U/L (14-36); African American GFR (CKD) >90 (>60 ml/min/1.73 sqM); Albumin 2.5 g/dL (3.5-5.0); Alkaline Phosphatase 106 U/L (38-126); Anion Gap 5 mmol/L; Blood Urea Nitrogen 8 mg/dL (7-17); Calcium 7.9 mg/dL (8.4-10.2); Carbon Dioxide 23 mmol/L (22-30); Chloride 110 mmol/L (98-107); Globulin 2.5 g/dL; Glucose 81 mg/dL (74-99); Non-African American GFR(CKD) >90 (>60 ml/min/1.73 sqM); Potassium 3.6 mmol/L (3.5-5.1); Sodium 138 mmol/L (137-145); Total Bilirubin 0.4 mg/dL (0.2-1.3)
[2024-06-04 08:49] LABS: HCT 29.9 % (37.2-46.3); HGB 9.5 g/dL (12.0-15.0); MCHC 31.8 g/dL (32.0-37.0); MCV 91.2 FL (80.0-97.0); Mean Platelet Volume 10.2 FL (9.5-12.2); NRBC Per 100 WBC 0 X 10*3/uL (0.00-0.01); Platelet Count 237 X 10*3/uL (140-440); RBC 3.28 X 10*6/uL (4.10-5.20); RDW 14.2 % (11.5-14.5); WBC 5.71 X 10*3/uL (4.50-10.00)
[2024-06-04 10:36] LABS: Basophils # (M) 0 X 10*3/uL (0.00-0.10); Eosinophils # (M) 0.17 X 10*3/uL (0.04-0.35); Lymphocytes # (M) 1.14 X 10*3/uL (0.90-5.00); Metamyelocytes % 1 % (0-0); Monocytes # (M) 0.17 X 10*3/uL (0.20-1.00); Myelocytes % 1 % (0-0); Neutrophils # (M) 4.11 X 10*3/uL (1.80-7.70); Neutrophils % (M) 72 %; RBC Morphology Normal (Normal)
--- NOTE | 2024-06-04 13:08 | P.PN ---
Subjective Progress Note Date: 06/04/24 This is a 64-year-old female with past medical history significant for atrial fibrillation status post ablation, previously on Eliquis currently on hold, history of hypertension, hyperlipidemia who presented to ER with a complaint of fever, chills, night sweats, right-sided abdominal wall pain, redness, te nderness and warmth for the last 4 to 5 days. Patient was recently hospitalized about 3 weeks ago when patient had a abdominal wall hematoma following a fall, underwent IR drainage, was evaluated by general surgery and was discharged home with drain which was taken out about a week ago. Patient stated that for couple of days she did okay and was taking oral doxycycline, for the last 4 to 5 days patient noticed that her abdominal wall was getting swollen again, noticed more warmth, pain and tenderness, patient also reported high-grade fevers up to 102.6 yesterday, also reported chills and night sweats. Patient denied any sick contacts. Patient stated that she has been off Eliquis for more than a week. In the ED patient afebrile, heart rate 80, respiratory rate 20, blood pressure 124/58, saturating 98% on room air. Labs showed WBCs 12.4, hemoglobin 10.7, platelet 220, absolute neutrophil count 10.4. INR 1.0. BMP was mostly unremarkable. LFTs unremarkable. UA showed moderate leukocyte Estrace, patient asymptomatic. COVID influenza and RSV negative. CT abdomen pelvis showed fluid collection measuring 20 X11 X 14 cm in the right anterior lateral abdominal wall is now approximately 18 X4.7X 11 cm, but the wall of collection has become thickened and ill-defined, significant mike ma/inflammatory changes in the surrounding subcutaneous soft tissue, in addition multiple bubbles of air within the collection and the findings are consistent with an abscess. 05/31/2024: Patient reported that right-sided abdominal pain and swelling is better. Complained of night sweats. Patient had a temperature of 99.4 today, heart rate 78, respiratory rate 17, blood pressure 119/68, saturating 97% on room air. WBCs 9.6, hemoglobin 9.7, platelet 184. BMP unremarkable. Awaiting further [facility] surgery recommendations. Infectious disease following, currently on vancomycin and cefepime. 06/01/2024 Patient was seen and examined today. Patient underwent IR guided drain placement today. Vital stable, temperature 99, heart rate 80, respiratory rate 18, blood pressure 111/66. WBCs 9, hemoglobin 9.4, platelet 215. Sodium 136, potassium 3.4, creatinine 0.71, BUN 11. Blood culture negative so far. 06/02/2024 Patient was seen and examined today. Abdominal pain is controlled. Drain in place with brownish discharge in tubing and bag. Remained afebrile, heart rate 62, respiratory rate 16, blood pressure 118/77, saturating 98% room air. Complains of constipation, started on Senokot MiraLAX. WBCs normal 7.5, hemoglobin 8.6, platelet 204. BMP unremarkable, potassium 3.3 on pressure was noted protocol. 06/03. Patient seen and examined. Still having right-sided abdominal pain. States redness has improved. 06/04. Patient seen and examined. States she feels much better. Abdominal pain has improved. REVIEW OF SYSTEMS: CONSTITUTIONAL: No fever, no malaise,. CARDIOVASCULAR: No chest pain, no palpitations, no syncope. PULMONARY: No shortness of breath, no cough, GASTROINTESTINAL: No diarrhea, no nausea, no vomiting, no abdominal pain. NEUROLOGICAL: No headaches, no weakness, PHYSICAL EXAMINATION: GENERAL: The patient is alert and oriented x3, not in any acute distress. Well developed, well nourished. HEENT: Pupils are round and equally reacting to light. EOMI. No scleral icterus. No conjunctival pallor. Normocephalic, atraumatic. No pharyngeal erythema. No thyromegaly. CARDIOVASCULAR: S1 and S2 present. No murmurs, rubs, or gallops. PULMONARY: Chest is clear to auscultation, no wheezing or crackles. ABDOMEN: Soft, nontender, nondistended, right-sided abdominal drain seen, erythema improved MUSCULOSKELETAL: No joint swelling or deformity. EXTREMITIES: No cyanosis, clubbing, or pedal edema. NEUROLOGICAL: Gross neurological examination did not reveal any focal deficits. SKIN: No rashes. Assessment and plan Abdominal wall abscess: Recent abdominal wall hematoma after fall, had a drain, taken out about a week ago Presented with fever, chills, night sweats, right-sided abdominal wall redness warmth and tenderness. CT abdomen pelvis concerning for abdominal wall abscess Follow-up on cultures Patient was on vancomycin for pain, antibiotics changed to IV Unasyn Status post IR drainage placement 06/01/2024. Surgery following ID following Hypertension: Hyperlipidemia: Paroxysmal atrial fibrillation status post ablation: Continue home meds. Holding Eliquis. Labs and medication were reviewed.. Continue same treatment. Continue with symptomatic treatment. Resume home medication. Monitor labs and vitals. DVT and GI prophylaxis. Further recommendations as per clinical course of the patient Dictation was produced using [employer] dictation software. please excuse any grammatical, word or spelling errors. Objective - Vital Signs Vital signs: Vital Signs Temp 98.1 F 06/04/24 07:12 Pulse 79 06/04/24 07:12 Resp 17 06/04/24 07:12 BP 151/86 06/04/24 07:12 Pulse Ox 97 06/04/24 07:12 FiO2 Intake & Output 06/03/24 06/04/24 06/04/24 18:59 06:59 18:59 Intake Total 550 Output Total 40 Balance 550 -40 Intake: Oral 550 Output: Drainage 40 Right Abdomen 40 Other: # Voids 2 - Labs CBC & Chem 7: 06/04/24 02:34 06/04/24 02:34 Labs: Abnormal Lab Results - Last 24 Hours (Table) 06/04/24 06/04/24 Range/Units 02:34 02:34 RBC 3.28 L (4.10-5.20) X 10*6/uL Hgb 9.5 L (12.0-15.0) g/dL Hct 29.9 L (37.2-46.3) % MCHC 31.8 L (32.0-37.0) g/dL Chloride 110 H (98-107) mmol/L Calcium 7.9 L (8.4-10.2) mg/dL Total Protein 5.0 L (6.3-8.2) g/dL Albumin 2.5 L (3.5-5.0) g/dL Microbiology - Last 24 Hours (Table) 06/01/24 12:30 Gram Stain - Preliminary Aspirate Body Fluid Culture - Preliminary
[2024-06-04] MEDS: AMPICILLIN-SULBACTAM 3 GM in SODIUM CHLORIDE 0.9% 100 ML IVPB SCH (13:11)
[2024-06-04] MEDS ORDERED: VANCOMYCIN IV PER PHARMACY 1 EACH MISC MISCELLANE PRN (14:27)
--- NOTE | 2024-06-04 14:27 | P.PN ---
Subjective Progress Note Date: 06/04/24 Principal diagnosis: Reason for follow-up is abdominal wall abscess/cellulitis Patient is a 64-year-old female past medical history significant for hypertension hyperlipidemia atrial fibrillation on Eliquis apparently patient did have a fall few weeks ago for the patient was admitted to the hospital and has developed abdominal wall hematoma patient is status post IR drainage culture were negative discharged on doxycycline who presented back to the hospital with fever worsening abdominal wall swelling and redness and CT has been suspicious for an abscess. Patient is status post IR drainage of the abdominal wall abscess on 06/01/2024. On today's evaluation that is 06/04/2024, patient has been afebrile, patient is breathing comfortably and is currently on room air, patient denies having any significant cough no chest pain, patient denies nausea vomiting or diarrhea abdominal pain has decreased in intensity still having drainage in the drainage catheter. Patient white count is 5.71, creatinine 0.60 cultures are growing Staphylococcus stimulan Objective - Vital Signs Vital signs: Vital Signs Temp 98.1 F 06/04/24 07:12 Pulse 79 06/04/24 07:12 Resp 17 06/04/24 07:12 BP 151/86 06/04/24 07:12 Pulse Ox 97 06/04/24 07:12 FiO2 Intake & Output 06/03/24 06/04/24 06/04/24 18:59 06:59 18:59 Intake Total 550 Output Total 40 Balance 550 -40 Intake: Oral 550 Output: Drainage 40 Right Abdomen 40 Other: # Voids 2 - Exam GENERAL DESCRIPTION: An elderly female lying in bed in no distress RESPIRATORY SYSTEM: Unlabored breathing , decreased breath sounds at bases HEART: S1 S2 regular rate and rhythm , ABDOMEN: Soft , abdominal wall drainage catheter with mucopurulent drainage EXTREMITIES: No edema feet - Labs CBC & Chem 7: 06/04/24 02:34 06/04/24 02:34 Labs: Abnormal Lab Results - Last 24 Hours (Table) 06/04/24 06/04/24 Range/Units 02:34 02:34 RBC 3.28 L (4.10-5.20) X 10*6/uL Hgb 9.5 L (12.0-15.0) g/dL Hct 29.9 L (37.2-46.3) % MCHC 31.8 L (32.0-37.0) g/dL Monocytes # (Manual) 0.17 L (0.20-1.00) X 10*3/uL Chloride 110 H (98-107) mmol/L Calcium 7.9 L (8.4-10.2) mg/dL Total Protein 5.0 L (6.3-8.2) g/dL Albumin 2.5 L (3.5-5.0) g/dL Microbiology - Last 24 Hours (Table) 06/01/24 12:30 Gram Stain - Preliminary Aspirate Body Fluid Culture - Preliminary Assessment and Plan (1) Abdominal wall abscess Current Visit: Yes Status: Acute Code(s): L02.211 - CUTANEOUS ABSCESS OF ABDOMINAL WALL SNOMED Code(s): 61821383 (2) Leukocytosis Current Visit: Yes Status: Acute Code(s): D72.829 - ELEVATED WHITE BLOOD CELL COUNT, UNSPECIFIED SNOMED Code(s): 027021750 Plan: 1patient presented to hospital with right-sided abdominal wall swelling redness in this patient who recently did have abdominal wall hematoma after a fall and did have a drainage procedure on 05/08/2024 the culture were negative now presenting back to the hospital with worsening swelling and redness pain and fever with abnormal CT suspicious for an abscess we will likely need to cover for both gram-positive skin gerard as well as gram-negative pathogen 2-General Surgery has seen the patient and asked IR to drain the abscess status post completion with a culture growing Staphylococcus stimulans oxacillin resistant 3-patient will be restarted on vancomycin and will monitor clinical course closely Dictation was produced using [employer] dictation software. please excuse any grammatical, word or spelling errors. Time with Patient: Less than 30
--- NOTE | 2024-06-04 14:50 | P.PN ---
Subjective Progress Note Date: 06/04/24 SURGICAL PROGRESS NOTE CHIEF COMPLAINT: Abdominal wall abscess HISTORY OF PRESENT ILLNESS: Patient is status post drain placement for the right abdominal wall abscess. Drainage is purulent. Patient with 40 mL purulent drainage. Patient is starting to feel better. Minimal pain right side abdomen mostly with movement. Afebrile. WBC normal at 5.71 Hgb 9.5 infectious ease has adjusted antibiotics to vancomycin. Culture growing Staphylococcus simulans. Oxacillin resistant PHYSICAL EXAM: VITAL SIGNS: Reviewed. GENERAL: Well-developed in no acute distress. ABDOMEN: Soft. Nondistended. Decreased erythema and induration of that right flank NEUROLOGIC: Alert and oriented. Cranial nerves II through XII grossly intact. ASSESSMENT: 1. Right anterior abdominal wall abscess status post drain placement 2. Recent fall with right abdominal wall hematoma during her last admission PLAN: -Patient can be discharge from surgical standpoint when cleared by infectious disease. -Continue IR drain -Continue antibiotics per ID service -No further surgical intervention planned Physician Director Learning note has been reviewed by physician. Signing provider agrees with the documented findings, assessment, and plan of care. Objective - Vital Signs Vital signs: Vital Signs Temp 97.5 F L 06/04/24 13:40 Pulse 69 06/04/24 13:40 Resp 17 06/04/24 13:40 BP 148/82 06/04/24 13:40 Pulse Ox 98 06/04/24 13:40 FiO2 Intake & Output 06/03/24 06/04/24 06/04/24 18:59 06:59 18:59 Intake Total 550 Output Total 40 Balance 550 -40 Intake: Oral 550 Output: Drainage 40 Right Abdomen 40 Other: # Voids 2 - Labs CBC & Chem 7: 06/04/24 02:34 06/04/24 02:34 Labs: Abnormal Lab Results - Last 24 Hours (Table) 06/04/24 06/04/24 Range/Units 02:34 02:34 RBC 3.28 L (4.10-5.20) X 10*6/uL Hgb 9.5 L (12.0-15.0) g/dL Hct 29.9 L (37.2-46.3) % MCHC 31.8 L (32.0-37.0) g/dL Monocytes # (Manual) 0.17 L (0.20-1.00) X 10*3/uL Chloride 110 H (98-107) mmol/L Calcium 7.9 L (8.4-10.2) mg/dL Total Protein 5.0 L (6.3-8.2) g/dL Albumin 2.5 L (3.5-5.0) g/dL Microbiology - Last 24 Hours (Table) 06/01/24 12:30 Gram Stain - Preliminary Aspirate Body Fluid Culture - Preliminary Staphylococcus simulans
[2024-06-04] MEDS ORDERED: VANCOMYCIN 1,750 MG in SODIUM CHLORIDE 0.9% 500 ML 500 ML IVPB SCH (15:00)
[2024-06-04] MEDS: VANCOMYCIN 1,750 MG in SODIUM CHLORIDE 0.9% 500 ML 500 ML IVPB SCH (20:31)
--- NOTE | 2024-06-05 03:47 | P.PN ---
Progress Note - Text Progress Note Date: 06/05/24 CHIEF COMPLAINT: Abdominal wall abscess HISTORY OF PRESENT ILLNESS: Patient is status post drain placement for the right abdominal wall abscess. Drainage is purulent. No acute events overnight. PHYSICAL EXAM: VITAL SIGNS: Reviewed. GENERAL: Well-developed in no acute distress. ABDOMEN: Soft. Nondistended. Decreased erythema and induration of that right flank NEUROLOGIC: Alert and oriented. Cranial nerves II through XII grossly intact. ASSESSMENT: 1. Right anterior abdominal wall abscess status post drain placement 2. Recent fall with right abdominal wall hematoma during her last admission PLAN: -Patient can be discharge from surgical standpoint when cleared by infectious di laureen. -Continue IR drain -Continue antibiotics per ID service -No further surgical intervention planned Colt Steward DO [facility] [phone]
[2024-06-05] MEDS ORDERED: VANCOMYCIN TROUGH DUE 1 EACH MISC MISCELLANE ONE (07:00)
[2024-06-05 07:47] VITALS: BMI 42.7
[2024-06-05] MEDS: VANCOMYCIN TROUGH DUE 1 EACH MISC MISCELLANE ONE (08:49)
[2024-06-05] MEDS: PANTOPRAZOLE 40 MG TABLET PO SCH (09:17)
[2024-06-05 09:31] LABS: African American GFR (CKD) >90 (>60 ml/min/1.73 sqM); Non-African American GFR(CKD) >90 (>60 ml/min/1.73 sqM)
--- NOTE | 2024-06-05 14:47 | P.PN ---
Subjective Progress Note Date: 06/05/24 This is a 64-year-old female with past medical history significant for atrial fibrillation status post ablation, previously on Eliquis currently on hold, history of hypertension, hyperlipidemia who presented to ER with a complaint of fever, chills, night sweats, right-sided abdominal wall pain, redness, te nderness and warmth for the last 4 to 5 days. Patient was recently hospitalized about 3 weeks ago when patient had a abdominal wall hematoma following a fall, underwent IR drainage, was evaluated by general surgery and was discharged home with drain which was taken out about a week ago. Patient stated that for couple of days she did okay and was taking oral doxycycline, for the last 4 to 5 days patient noticed that her abdominal wall was getting swollen again, noticed more warmth, pain and tenderness, patient also reported high-grade fevers up to 102.6 yesterday, also reported chills and night sweats. Patient denied any sick contacts. Patient stated that she has been off Eliquis for more than a week. In the ED patient afebrile, heart rate 80, respiratory rate 20, blood pressure 124/58, saturating 98% on room air. Labs showed WBCs 12.4, hemoglobin 10.7, platelet 220, absolute neutrophil count 10.4. INR 1.0. BMP was mostly unremarkable. LFTs unremarkable. UA showed moderate leukocyte Estrace, patient asymptomatic. COVID influenza and RSV negative. CT abdomen pelvis showed fluid collection measuring 20 X11 X 14 cm in the right anterior lateral abdominal wall is now approximately 18 X4.7X 11 cm, but the wall of collection has become thickened and ill-defined, significant mike ma/inflammatory changes in the surrounding subcutaneous soft tissue, in addition multiple bubbles of air within the collection and the findings are consistent with an abscess. 05/31/2024: Patient reported that right-sided abdominal pain and swelling is better. Complained of night sweats. Patient had a temperature of 99.4 today, heart rate 78, respiratory rate 17, blood pressure 119/68, saturating 97% on room air. WBCs 9.6, hemoglobin 9.7, platelet 184. BMP unremarkable. Awaiting further [facility] surgery recommendations. Infectious disease following, currently on vancomycin and cefepime. 06/01/2024 Patient was seen and examined today. Patient underwent IR guided drain placement today. Vital stable, temperature 99, heart rate 80, respiratory rate 18, blood pressure 111/66. WBCs 9, hemoglobin 9.4, platelet 215. Sodium 136, potassium 3.4, creatinine 0.71, BUN 11. Blood culture negative so far. 06/02/2024 Patient was seen and examined today. Abdominal pain is controlled. Drain in place with brownish discharge in tubing and bag. Remained afebrile, heart rate 62, respiratory rate 16, blood pressure 118/77, saturating 98% room air. Complains of constipation, started on Senokot MiraLAX. WBCs normal 7.5, hemoglobin 8.6, platelet 204. BMP unremarkable, potassium 3.3 on pressure was noted protocol. 06/03. Patient seen and examined. Still having right-sided abdominal pain. States redness has improved. 06/04. Patient seen and examined. States she feels much better. Abdominal pain has improved. 06/05. Patient seen and examined. Antibiotics were switched to vancomycin because of wound cultures being resistant to penicillin denies any abdominal pain. Vital signs stable REVIEW OF SYSTEMS: CONSTITUTIONAL: No fever, no malaise,. CARDIOVASCULAR: No chest pain, no palpitations, no syncope. PULMONARY: No shortness of breath, no cough, GASTROINTESTINAL: No diarrhea, no nausea, no vomiting, no abdominal pain. NEUROLOGICAL: No headaches, no weakness, PHYSICAL EXAMINATION: GENERAL: The patient is alert and oriented x3, not in any acute distress. Well developed, well nourished. HEENT: Pupils are round and equally reacting to light. EOMI. No scleral icterus. No conjunctival pallor. Normocephalic, atraumatic. No pharyngeal erythema. No thyromegaly. CARDIOVASCULAR: S1 and S2 present. No murmurs, rubs, or gallops. PULMONARY: Chest is clear to auscultation, no wheezing or crackles. ABDOMEN: Soft, nontender, nondistended, right-sided abdominal drain seen, erythema improved MUSCULOSKELETAL: No joint swelling or deformity. EXTREMITIES: No cyanosis, clubbing, or pedal edema. NEUROLOGICAL: Gross neurological examination did not reveal any focal deficits. SKIN: No rashes. Assessment and plan Abdominal wall abscess: Recent abdominal wall hematoma after fall, had a drain, taken out about a week ago Presented with fever, chills, night sweats, right-sided abdominal wall redness warmth and tenderness. CT abdomen pelvis concerning for abdominal wall abscess Follow-up on cultures Continue vancomycin pharmacy dose Status post IR drainage placement 06/01/2024. Surgery following ID following Hypertension: Hyperlipidemia: Paroxysmal atrial fibrillation status post ablation: Continue home meds. Eliquis has been held since outpatient setting Labs and medication were reviewed.. Continue same treatment. Continue with symptomatic treatment. Resume home medication. Monitor labs and vitals. DVT and GI prophylaxis. Further recommendations as per clinical course of the patient Dictation was produced using [employer] dictation software. please excuse any grammatical, word or spelling errors. Objective - Vital Signs Vital signs: Vital Signs Temp 97.7 F 06/05/24 06:57 Pulse 92 06/05/24 06:57 Resp 18 06/05/24 10:13 BP 129/80 06/05/24 06:57 Pulse Ox 95 06/05/24 06:57 FiO2 Intake & Output 06/04/24 06/05/24 06/05/24 18:59 06:59 18:59 Weight 120.202 kg Other: Voiding Method Toilet Toilet # Voids 3 2 2 - Labs CBC & Chem 7: 06/04/24 02:34 06/05/24 09:04 Labs: Microbiology - Last 24 Hours (Table) 05/30/24 08:40 Blood Culture - Final Blood 06/01/24 12:30 Gram Stain - Preliminary Aspirate Body Fluid Culture - Preliminary Staphylococcus simulans
[2024-06-06 05:43] LABS: African American GFR (CKD) >90 (>60 ml/min/1.73 sqM); Non-African American GFR(CKD) >90 (>60 ml/min/1.73 sqM)
--- NOTE | 2024-06-06 08:23 | P.PN ---
Progress Note - Text Progress Note Date: 06/06/24 HISTORY OF PRESENT ILLNESS: Patient is status post drain placement for the right abdominal wall abscess. Drainage is purulent. No acute events overnight. PHYSICAL EXAM: VITAL SIGNS: Reviewed. GENERAL: Well-developed in no acute distress. ABDOMEN: Soft. Nondistended. Decreased erythema and induration of that right flank NEUROLOGIC: Alert and oriented. Cranial nerves II through XII grossly intact. ASSESSMENT: 1. Right anterior abdominal wall abscess status post drain placement 2. Recent fall with right abdominal wall hematoma during her last admission PLAN: -Patient can be discharge from surgical standpoint when cleared by infectious disease. -Continue IR drain -Continue antibiotics per ID service -No further surgical intervention planned Colt Steward DO [facility] [phone]
--- NOTE | 2024-06-06 13:42 | P.PN ---
Subjective Progress Note Date: 06/06/24 This is a 64-year-old female with past medical history significant for atrial fibrillation status post ablation, previously on Eliquis currently on hold, history of hypertension, hyperlipidemia who presented to ER with a complaint of fever, chills, night sweats, right-sided abdominal wall pain, redness, te nderness and warmth for the last 4 to 5 days. Patient was recently hospitalized about 3 weeks ago when patient had a abdominal wall hematoma following a fall, underwent IR drainage, was evaluated by general surgery and was discharged home with drain which was taken out about a week ago. Patient stated that for couple of days she did okay and was taking oral doxycycline, for the last 4 to 5 days patient noticed that her abdominal wall was getting swollen again, noticed more warmth, pain and tenderness, patient also reported high-grade fevers up to 102.6 yesterday, also reported chills and night sweats. Patient denied any sick contacts. Patient stated that she has been off Eliquis for more than a week. In the ED patient afebrile, heart rate 80, respiratory rate 20, blood pressure 124/58, saturating 98% on room air. Labs showed WBCs 12.4, hemoglobin 10.7, platelet 220, absolute neutrophil count 10.4. INR 1.0. BMP was mostly unremarkable. LFTs unremarkable. UA showed moderate leukocyte Estrace, patient asymptomatic. COVID influenza and RSV negative. CT abdomen pelvis showed fluid collection measuring 20 X11 X 14 cm in the right anterior lateral abdominal wall is now approximately 18 X4.7X 11 cm, but the wall of collection has become thickened and ill-defined, significant mike ma/inflammatory changes in the surrounding subcutaneous soft tissue, in addition multiple bubbles of air within the collection and the findings are consistent with an abscess. 05/31/2024: Patient reported that right-sided abdominal pain and swelling is better. Complained of night sweats. Patient had a temperature of 99.4 today, heart rate 78, respiratory rate 17, blood pressure 119/68, saturating 97% on room air. WBCs 9.6, hemoglobin 9.7, platelet 184. BMP unremarkable. Awaiting further [facility] surgery recommendations. Infectious disease following, currently on vancomycin and cefepime. 06/01/2024 Patient was seen and examined today. Patient underwent IR guided drain placement today. Vital stable, temperature 99, heart rate 80, respiratory rate 18, blood pressure 111/66. WBCs 9, hemoglobin 9.4, platelet 215. Sodium 136, potassium 3.4, creatinine 0.71, BUN 11. Blood culture negative so far. 06/02/2024 Patient was seen and examined today. Abdominal pain is controlled. Drain in place with brownish discharge in tubing and bag. Remained afebrile, heart rate 62, respiratory rate 16, blood pressure 118/77, saturating 98% room air. Complains of constipation, started on Senokot MiraLAX. WBCs normal 7.5, hemoglobin 8.6, platelet 204. BMP unremarkable, potassium 3.3 on pressure was noted protocol. 06/03. Patient seen and examined. Still having right-sided abdominal pain. States redness has improved. 06/04. Patient seen and examined. States she feels much better. Abdominal pain has improved. 06/05. Patient seen and examined. Antibiotics were switched to vancomycin because of wound cultures being resistant to penicillin denies any abdominal pain. Vital signs stable 06/06. Patient seen and examined. ID recommended IV antibiotics at discharge, waiting on mid line placement REVIEW OF SYSTEMS: CONSTITUTIONAL: No fever, no malaise,. CARDIOVASCULAR: No chest pain, no palpitations, no syncope. PULMONARY: No shortness of breath, no cough, GASTROINTESTINAL: No diarrhea, no nausea, no vomiting, no abdominal pain. NEUROLOGICAL: No headaches, no weakness, PHYSICAL EXAMINATION: GENERAL: The patient is alert and oriented x3, not in any acute distress. Well developed, well nourished. HEENT: Pupils are round and equally reacting to light. EOMI. No scleral icterus. No conjunctival pallor. Normocephalic, atraumatic. No pharyngeal erythema. No th yromegaly. CARDIOVASCULAR: S1 and S2 present. No murmurs, rubs, or gallops. PULMONARY: Chest is clear to auscultation, no wheezing or crackles. ABDOMEN: Soft, nontender, nondistended, right-sided abdominal drain seen, erythema improved MUSCULOSKELETAL: No joint swelling or deformity. EXTREMITIES: No cyanosis, clubbing, or pedal edema. NEUROLOGICAL: Gross neurological examination did not reveal any focal deficits. SKIN: No rashes. Assessment and plan Abdominal wall abscess: Recent abdominal wall hematoma after fall, had a drain, taken out about a week ago Presented with fever, chills, night sweats, right-sided abdominal wall redness warmth and tenderness. CT abdomen pelvis concerning for abdominal wall abscess Follow-up on cultures Continue vancomycin pharmacy dose Status post IR drainage placement 06/01/2024. Surgery following ID following, recommending IV antibiotics at discharge Hypertension: Hyperlipidemia: Paroxysmal atrial fibrillation status post ablation: Continue home meds. Eliquis has been held since outpatient setting Labs and medication were reviewed.. Continue same treatment. Continue with symptomatic treatment. Resume home medication. Monitor labs and vitals. DVT and GI prophylaxis. Further recommendations as per clinical course of the patient Dictation was produced using [employer] dictation software. please excuse any grammatical, word or spelling errors. Objective - Vital Signs Vital signs: Vital Signs Temp 98.0 F 06/06/24 07:12 Pulse 82 06/06/24 10:15 Resp 17 06/06/24 10:15 BP 136/77 06/06/24 07:12 Pulse Ox 97 06/06/24 07:12 FiO2 Intake & Output 06/05/24 06/06/24 06/06/24 18:59 06:59 18:59 Intake Total 250 Output Total 50 40 Balance -50 210 Weight 120.202 kg Intake: Oral 250 Output: Drainage 50 40 Right Abdomen 50 40 Other: Voiding Method Toilet Toilet Toilet # Voids 4 - Labs CBC & Chem 7: 06/04/24 02:34 06/06/24 04:21
--- NOTE | 2024-06-06 16:13 | P.PN ---
Subjective Progress Note Date: 06/06/24 Principal diagnosis: Reason for follow-up is abdominal wall abscess/cellulitis Patient is a 64-year-old female past medical history significant for hypertension hyperlipidemia atrial fibrillation on Eliquis apparently patient did have a fall few weeks ago for the patient was admitted to the hospital and has developed abdominal wall hematoma patient is status post IR drainage culture were negative discharged on doxycycline who presented back to the hospital with fever worsening abdominal wall swelling and redness and CT has been suspicious for an abscess. Patient is status post IR drainage of the abdominal wall abscess on 06/01/2024. On today's evaluation that is 06/06/2024,the patient denies any fever or any chills, patient is breathing comfortably on room air, the patient denies chest pain shortness of breath and no significant cough, patient abdominal pain has decreased in intensity denies any nausea vomiting diarrhea did have good output in the drainage catheter. Patient did have a creatinine 0.54 Objective - Vital Signs Vital signs: Vital Signs Temp 97.7 F 06/06/24 13:26 Pulse 59 L 06/06/24 13:26 Resp 16 06/06/24 13:26 BP 156/82 06/06/24 13:26 Pulse Ox 95 06/06/24 13:26 FiO2 Intake & Output 06/05/24 06/06/24 06/06/24 18:59 06:59 18:59 Intake Total 430 Output Total 50 40 Balance -50 390 Weight 120.202 kg Intake: Oral 430 Output: Drainage 50 40 Right Abdomen 50 40 Other: Voiding Method Toilet Toilet Toilet # Voids 4 - Exam GENERAL DESCRIPTION: An elderly female lying in bed in no distress RESPIRATORY SYSTEM: Unlabored breathing , decreased breath sounds at bases HEART: S1 S2 regular rate and rhythm , ABDOMEN: Soft , abdominal wall drainage catheter with mucopurulent drainage EXTREMITIES: No edema feet - Labs CBC & Chem 7: 06/04/24 02:34 06/06/24 04:21 Labs: Microbiology - Last 24 Hours (Table) 06/01/24 12:30 Gram Stain - Final Aspirate Body Fluid Culture - Final Staphylococcus simulans Assessment and Plan (1) Abdominal wall abscess Current Visit: Yes Status: Acute Code(s): L02.211 - CUTANEOUS ABSCESS OF ABDOMINAL WALL SNOMED Code(s): 43959376 (2) Leukocytosis Current Visit: Yes Status: Acute Code(s): D72.829 - ELEVATED WHITE BLOOD CELL COUNT, UNSPECIFIED SNOMED Code(s): 939156470 Plan: 1patient presented to hospital with right-sided abdominal wall swelling redness in this patient who recently did have abdominal wall hematoma after a fall and did have a drainage procedure on 05/08/2024 the culture were negative now presenting back to the hospital with worsening swelling and redness pain and fever with abnormal CT suspicious for an abscess we will likely need to cover for both gram-positive skin gerard as well as gram-negative pathogen 2-patient is status post IR drainage of this abscess with a culture growing Staphylococcus stimulans oxacillin resistant 3-patient continue vancomycin we will get a PICC line in a.m. and consider a 10- day course of IV vancomycin on discharge Dictation was produced using [employer] dictation software. please excuse any grammatical, word or spelling errors. Time with Patient: Less than 30
--- NOTE | 2024-06-06 16:13 | P.PN ---
Subjective Progress Note Date: 06/05/24 Principal diagnosis: Reason for follow-up is abdominal wall abscess/cellulitis Patient is a 64-year-old female past medical history significant for hypertension hyperlipidemia atrial fibrillation on Eliquis apparently patient did have a fall few weeks ago for the patient was admitted to the hospital and has developed abdominal wall hematoma patient is status post IR drainage culture were negative discharged on doxycycline who presented back to the hospital with fever worsening abdominal wall swelling and redness and CT has been suspicious for an abscess. Patient is status post IR drainage of the abdominal wall abscess on 06/01/2024. On today's evaluation that is 06/05/2024, Patient is afebrile this morning patient denies having any chest pain shortness of breath or cough, the patient is currently on room air, patient abdominal pain has decreased in intensity no diarrhea no nausea no vomiting still have good output in the drainage catheter. Patient did have a creatinine 0.55 Vanco trough is 13.5 Objective - Vital Signs Vital signs: Vital Signs Temp 98.1 F 06/05/24 13:02 Pulse 69 06/05/24 13:02 Resp 16 06/05/24 13:02 BP 138/76 06/05/24 13:02 Pulse Ox 96 06/05/24 13:02 FiO2 Intake & Output 06/05/24 06/05/24 06/06/24 06:59 18:59 06:59 Weight 120.202 kg Other: Voiding Method Toilet Toilet # Voids 2 4 - Exam GENERAL DESCRIPTION: An elderly female lying in bed in no distress RESPIRATORY SYSTEM: Unlabored breathing , decreased breath sounds at bases HEART: S1 S2 regular rate and rhythm , ABDOMEN: Soft , abdominal wall drainage catheter with mucopurulent drainage EXTREMITIES: No edema feet - Labs CBC & Chem 7: 06/04/24 02:34 06/06/24 04:21 Labs: Microbiology - Last 24 Hours (Table) 05/30/24 08:40 Blood Culture - Final Blood Assessment and Plan (1) Abdominal wall abscess Current Visit: Yes Status: Acute Code(s): L02.211 - CUTANEOUS ABSCESS OF ABDOMINAL WALL SNOMED Code(s): 41609744 (2) Leukocytosis Current Visit: Yes Status: Acute Code(s): D72.829 - ELEVATED WHITE BLOOD CELL COUNT, UNSPECIFIED SNOMED Code(s): 968942332 Plan: 1patient presented to hospital with right-sided abdominal wall swelling redness in this patient who recently did have abdominal wall hematoma after a fall and did have a drainage procedure on 05/08/2024 the culture were negative now presenting back to the hospital with worsening swelling and redness pain and fever with abnormal CT suspicious for an abscess we will likely need to cover for both gram-positive skin gerard as well as gram-negative pathogen 2-patient is status post IR drainage of this abscess with a culture growing Staphylococcus stimulans oxacillin resistant 3-patient continue vancomycin and will need outpatient IV vancomycin on discharge keeping in mind failure of oral antibiotics on last admission Dictation was produced using [employer] dictation software. please excuse any grammatical, word or spelling errors. Time with Patient: Less than 30
[2024-06-07 08:43] LABS: ALT 43 U/L (8-44); AST 44 U/L (13-35); Alkaline Phosphatase 92 U/L (41-126); BUN/Creat Ratio 12.17 Ratio (12.00-20.00); Blood Urea Nitrogen 7.3 mg/dL (9.0-27.0); Calcium 8.3 mg/dL (8.7-10.3); Carbon Dioxide 26.1 mmol/L (21.6-31.8); Chloride 105 mmol/L (96-109); Glucose 98 mg/dL (70-110); Potassium 3.5 mmol/L (3.5-5.5); Sodium 141 mmol/L (135-145); Total Bilirubin 0.3 mg/dL (0.3-1.2)
[2024-06-07 08:45] LABS: Basophils # (A) 0.03 X 10*3/uL (0.00-0.10); Basophils % (A) 0.5 %; Eosinophils # (A) 0.09 X 10*3/uL (0.04-0.35); Eosinophils % (A) 1.4 %; HCT 30.5 % (37.2-46.3); HGB 9.8 g/dL (12.0-15.0); Lymphocytes % (A) 22.3 %; MCH 29.1 pg (27.0-32.0); MCHC 32.1 g/dL (32.0-37.0); MCV 90.5 FL (80.0-97.0); Mean Platelet Volume 9.5 FL (9.5-12.2); Monocytes # (A) 0.39 X 10*3/uL (0.20-1.00); Monocytes % (A) 6.2 %; NRBC Per 100 WBC 0 X 10*3/uL (0.00-0.01); Neutrophils # (A) 4.12 X 10*3/uL (1.80-7.70); Neutrophils % (A) 65.6 %; Platelet Count 198 X 10*3/uL (140-440); RBC 3.37 X 10*6/uL (4.10-5.20); RDW 14.2 % (11.5-14.5); WBC 6.28 X 10*3/uL (4.50-10.00)
--- NOTE | 2024-06-07 12:06 | P.PN ---
Subjective Progress Note Date: 06/07/24 Principal diagnosis: Reason for follow-up is abdominal wall abscess/cellulitis Patient is a 64-year-old female past medical history significant for hypertension hyperlipidemia atrial fibrillation on Eliquis apparently patient did have a fall few weeks ago for the patient was admitted to the hospital and has developed abdominal wall hematoma patient is status post IR drainage culture were negative discharged on doxycycline who presented back to the hospital with fever worsening abdominal wall swelling and redness and CT has been suspicious for an abscess. Patient is status post IR drainage of the abdominal wall abscess on 06/01/2024. On today's evaluation that is 06/07/2024,the patient remains to be afebrile, patient is on room air not requiring supplemental oxygen and denies any shortness of breath no chest pain or cough.Patient denies having any nausea or vomiting, abdominal pain and redness has decreased still have output in the drainage catheter. Patient white count 6.28 creatinine 0.6 blood culture has been negative Objective - Vital Signs Vital signs: Vital Signs Temp 98.0 F 06/07/24 07:19 Pulse 89 06/07/24 07:19 Resp 16 06/07/24 07:19 BP 145/78 06/07/24 07:19 Pulse Ox 97 06/07/24 07:19 FiO2 Intake & Output 06/06/24 06/07/24 06/07/24 18:59 06:59 18:59 Intake Total 680 Output Total 40 Balance 640 Intake: Oral 680 Output: Drainage 40 Right Abdomen 40 Other: Voiding Method Toilet Toilet # Voids 2 - Exam GENERAL DESCRIPTION: An elderly female lying in bed in no distress RESPIRATORY SYSTEM: Unlabored breathing , decreased breath sounds at bases HEART: S1 S2 regular rate and rhythm , ABDOMEN: Soft , abdominal wall drainage catheter with mucopurulent drainage EXTREMITIES: No edema feet - Labs CBC & Chem 7: 06/07/24 03:53 06/07/24 03:53 Labs: Abnormal Lab Results - Last 24 Hours (Table) 06/07/24 06/07/24 Range/Units 03:53 03:53 RBC 3.37 L (4.10-5.20) X 10*6/uL Hgb 9.8 L (12.0-15.0) g/dL Hct 30.5 L (37.2-46.3) % Immature Gran # 0.25 H (0.00-0.04) X 10*3/uL BUN 7.3 L (9.0-27.0) mg/dL Calcium 8.3 L (8.7-10.3) mg/dL AST 44 H (13-35) U/L Total Protein 5.0 L (6.2-8.2) g/dL Albumin 3.0 L (3.8-4.9) g/dL Albumin/Globulin Ratio 1.50 L (1.60-3.17) Ratio Microbiology - Last 24 Hours (Table) 06/01/24 12:30 Gram Stain - Final Aspirate Body Fluid Culture - Final Staphylococcus simulans Assessment and Plan (1) Abdominal wall abscess Current Visit: Yes Status: Acute Code(s): L02.211 - CUTANEOUS ABSCESS OF ABDOMINAL WALL SNOMED Code(s): 65380498 (2) Leukocytosis Current Visit: Yes Status: Acute Code(s): D72.829 - ELEVATED WHITE BLOOD CELL COUNT, UNSPECIFIED SNOMED Code(s): 247881614 Plan: 1patient presented to hospital with right-sided abdominal wall swelling redness in this patient who recently did have abdominal wall hematoma after a fall and did have a drainage procedure on 05/08/2024 the culture were negative now presenting back to the hospital with worsening swelling and redness pain and fever with abnormal CT suspicious for an abscess we will likely need to cover for both gram-positive skin gerard as well as gram-negative pathogen 2-patient is status post IR drainage of this abscess with a culture growing Staphylococcus stimulans oxacillin resistant 3-patient did have PICC line this morning and plan is for 10-day course of IV vancomycin on discharge, prescription was provided to the correctional case records supervisor Dictation was produced using [employer] software. please excuse any grammatical, word or spelling errors. Time with Patient: Less than 30
--- NOTE | 2024-06-07 12:08 | P.PN ---
Subjective Progress Note Date: 06/07/24 SURGICAL PROGRESS NOTE CHIEF COMPLAINT: Abdominal wall abscess HISTORY OF PRESENT ILLNESS: Patient is status post drain placement for the right abdominal wall abscess. Patient with 40 mL purulent drainage from drain. Patient reporting decreased pain and decreased erythema on that right flank. Afebrile she did get her PICC line today. BC 6.28 Hgb 9.8 PHYSICAL EXAM: VITAL SIGNS: Reviewed. GENERAL: Well-developed in no acute distress. ABDOMEN: Soft. Nondistended. Decreased erythema and induration of that right flank NEUROLOGIC: Alert and oriented. Cranial nerves II through XII grossly intact. ASSESSMENT: 1. Right anterior abdominal wall abscess status post drain placement 2. Recent fall with right abdominal wall hematoma during her last admission PLAN: -Patient can be discharge from surgical standpoint -Discharged with drain -Discharge antibiotics per ID service -Will follow-up outpatient Physician Share[employer] Administrator note has been reviewed by physician. Signing provider agrees with the documented findings, assessment, and plan of care. Attestation Patient seen and examined at bedside. Continues to have drainage from IR drain. Continue antibiotics, PICC line is in place. Follow-up as outpatient. Patient surgically stable for discharge. Eugene Pham DO Objective - Vital Signs Vital signs: Vital Signs Temp 98.0 F 06/07/24 07:19 Pulse 89 06/07/24 07:19 Resp 16 06/07/24 07:19 BP 145/78 06/07/24 07:19 Pulse Ox 97 06/07/24 07:19 FiO2 Intake & Output 06/06/24 06/07/24 06/07/24 18:59 06:59 18:59 Intake Total 680 Output Total 40 Balance 640 Intake: Oral 680 Output: Drainage 40 Right Abdomen 40 Other: Voiding Method Toilet Toilet Toilet # Voids 2 - Labs CBC & Chem 7: 06/07/24 03:53 06/07/24 03:53 Labs: Abnormal Lab Results - Last 24 Hours (Table) 06/07/24 06/07/24 Range/Units 03:53 03:53 RBC 3.37 L (4.10-5.20) X 10*6/uL Hgb 9.8 L (12.0-15.0) g/dL Hct 30.5 L (37.2-46.3) % Immature Gran # 0.25 H (0.00-0.04) X 10*3/uL BUN 7.3 L (9.0-27.0) mg/dL Calcium 8.3 L (8.7-10.3) mg/dL AST 44 H (13-35) U/L Total Protein 5.0 L (6.2-8.2) g/dL Albumin 3.0 L (3.8-4.9) g/dL Albumin/Globulin Ratio 1.50 L (1.60-3.17) Ratio Microbiology - Last 24 Hours (Table) 06/01/24 12:30 Gram Stain - Final Aspirate Body Fluid Culture - Final Staphylococcus simulans
--- NOTE | 2024-06-07 12:40 | P.DS ---
Providers Date of admission: 05/30/24 12:04 Expected date of discharge: 06/07/24 Attending physician: Meek Kincaid MD Consults: 05/30/24 12:04 Consult Physician Routine Consulting Provider: Phillip Aleman Consult Reason/Comments: abd wall abscess Do you want consulting provider notified?: Yes Consult Physician Routine Consulting Provider: Erich Wilkinson Consult Reason/Comments: abd wall abscess Do you want consulting provider notified?: Yes Primary care physician: [facility] Course: Discharge diagnoses; Abdominal wall abscess: Recent abdominal wall hematoma after fall, had a drain, taken out about a week ago Presented with fever, chills, night sweats, right-sided abdominal wall redness warmth and tenderness. CT abdomen pelvis concerning for abdominal wall abscess Follow-up on cultures Continue vancomycin pharmacy dose Status post IR drainage placement 06/01/2024. Surgery following ID following, recommending IV vancomycin for 10-day, prescription given by ID Hypertension: Hyperlipidemia: Paroxysmal atrial fibrillation status post ablation: Continue home meds. Eliquis has been held since outpatient setting Hospital course; This is a 64-year-old female with past medical history significant for atrial fibrillation status post ablation, previously on Eliquis currently on hold, history of hypertension, hyperlipidemia who presented to ER with a complaint of fever, chills, night sweats, right-sided abdominal wall pain, redness, tenderness and warmth for the last 4 to 5 days. Patient was recently hospitalized about 3 weeks ago when patient had a abdominal wall hematoma following a fall, underwent IR drainage, was evaluated by general surgery and was discharged home with drain which was taken out about a week ago. Patient stated that for couple of days she did okay and was taking oral doxycycline, for the last 4 to 5 days patient noticed that her abdominal wall was getting swollen again, noticed more warmth, pain and tenderness, patient also reported high- grade fevers up to 102.6 yesterday, also reported chills and night sweats. Patient denied any sick contacts. Patient stated that she has been off Eliquis for more than a week. In the ED patient afebrile, heart rate 80, respiratory rate 20, blood pressure 124/58, saturating 98% on room air. Labs showed WBCs 12.4, hemoglobin 10.7, platelet 220, absolute neutrophil count 10.4. INR 1.0. BMP was mostly unremarkable. LFTs unremarkable. UA showed moderate leukocyte Estrace, patient asymptomatic. COVID influenza and RSV negative. CT abdomen pelvis showed fluid collection measuring 20 X11 X 14 cm in the right anterior lateral abdominal wall is now approximately 18 X4.7X 11 cm, but the wall of collection has become thickened and ill-defined, significant edema/inflammatory changes in the surrounding subcutaneous soft tissue, in addition multiple bubbles of air within the collection and the findings are consistent with an abscess. 05/31/2024: Patient reported that right-sided abdominal pain and swelling is better. Complained of night sweats. Patient had a temperature of 99.4 today, heart rate 78, respiratory rate 17, blood pressure 119/68, saturating 97% on room air. WBCs 9.6, hemoglobin 9.7, platelet 184. BMP unremarkable. Awaiting further general surgery recommendations. Infectious disease following, currently on vancomycin and cefepime. 06/01/2024 Patient was seen and examined today. Patient underwent IR guided drain placement today. Vital stable, temperature 99, heart rate 80, respiratory rate 18, blood pressure 111/66. WBCs 9, hemoglobin 9.4, platelet 215. Sodium 136, potassium 3.4, creatinine 0.71, BUN 11. Blood culture negative so far. 06/02/2024 Patient was seen and examined today. Abdominal pain is controlled. Drain in place with brownish discharge in tubing and bag. Remained afebrile, heart rate 62, respiratory rate 16, blood pressure 118/77, saturating 98% room air. Complains of constipation, started on Senokot MiraLAX. WBCs normal 7.5, hemoglobin 8.6, platelet 204. BMP unremarkable, potassium 3.3 on pressure was noted protocol. 06/03. Patient seen and examined. Still having right-sided abdominal pain. States redness has improved. 06/04. Patient seen and examined. States she feels much better. Abdominal pain has improved. 06/05. Patient seen and examined. Antibiotics were switched to vancomycin because of wound cultures being resistant to penicillin denies any abdominal pain. Vital signs stable 06/06. Patient seen and examined. ID recommended IV antibiotics at discharge, waiting on mid line placement 06/07. Patient seen and examined. Being discharged on IV vancomycin, prescription given by ID. PHYSICAL EXAMINATION: GENERAL: The patient is alert and oriented x3, not in any acute distress. Well developed, well nourished. HEENT: Pupils are round and equally reacting to light. EOMI. No scleral icterus. No conjunctival pallor. Normocephalic, atraumatic. No pharyngeal erythema. No thyromegaly. CARDIOVASCULAR: S1 and S2 present. No murmurs, rubs, or gallops. PULMONARY: Chest is clear to auscultation, no wheezing or crackles. ABDOMEN: Soft, nontender, nondistended, right-sided abdominal drain seen, MUSCULOSKELETAL: No joint swelling or deformity. EXTREMITIES: No cyanosis, clubbing, or pedal edema. NEUROLOGICAL: Gross neurological examination did not reveal any focal deficits. SKIN: No rashes. Dictation was produced using [employer] dictation software. please excuse any grammatical, word or spelling errors. Patient Condition at Discharge: Stable Plan - Discharge Summary Discharge Rx Participant: No New Discharge Prescriptions: New Vancomycin 1,750 mg IVPB Q12HR each Continue Fexofenadine HCl [Conchita Allergy] 180 mg PO HS Multivitamins, Thera [Multivitamin (formulary)] 1 tab PO HS Potassium Chloride ER [K-Dur 10] 10 meq PO MOTUWETHFR Solifenacin Succinate [Vesicare] 5 mg PO HS Atorvastatin [Lipitor] 20 mg PO MOWEFR EPINEPHrine (Auto Inject) [Epipen] 0.3 mg IM ONCE PRN PRN Reason: Anaphylaxis Escitalopram [Lexapro] 10 mg PO HS Metoprolol Succinate (ER) [Toprol XL] 150 mg PO HS Triamterene/Hydrochlorothiazid [Triamterene-Hctz 37.5-25 mg Cp] 1 cap PO HS Vit C/E/Zn/Coppr/Lutein/Zeaxan [Preservision Areds 2 Softgel] 1 cap PO HS Discontinued Doxycycline Hyclate 100 mg PO BID Discharge Medication List Atorvastatin [Lipitor] 20 mg PO MOWEFR 05/06/24 [History] EPINEPHrine (Auto Inject) [Epipen] 0.3 mg IM ONCE PRN 05/06/24 [History] Escitalopram [Lexapro] 10 mg PO HS 05/06/24 [History] Fexofenadine HCl [Conchita Allergy] 180 mg PO HS 05/06/24 [History] Metoprolol Succinate (ER) [Toprol XL] 150 mg PO HS 05/06/24 [History] Multivitamins, Thera [Multivitamin (formulary)] 1 tab PO HS 05/06/24 [History] Potassium Chloride ER [K-Dur 10] 10 meq PO MOTUWETHFR 05/06/24 [History] Solifenacin Succinate [Vesicare] 5 mg PO HS 05/06/24 [History] Triamterene/Hydrochlorothiazid [Triamterene-Hctz 37.5-25 mg Cp] 1 cap PO HS 05/06/24 [History] Vit C/E/Zn/Coppr/Lutein/Zeaxan [Preservision Areds 2 Softgel] 1 cap PO HS 05/06/24 [History] Vancomycin 1,750 mg IVPB Q12HR each 06/07/24 [Rx] Follow up Appointment(s)/Referral(s): [facility], [NON-STAFF] - As Needed ([facility] will call you after discharge to set up in home services) Chester Pyle MD [Primary Care Provider] - 1-2 days Phillip Aleman DO [Doctor of Osteopathic Medicine] - 1 Week [facility], [REFERRING] - As Needed ([facility] will deliver supplies to your home the day of discharge) Erich Wilkinson MD [STAFF PHYSICIAN] - 1 Week Discharge Disposition: HOME WITH HOME HEALTH SERVICES
[2024-06-07] MEDS: DAPTOmycin 500 MG in SODIUM CHLORIDE 0.9% 50 ML IVPB SCH (13:56)
[2024-06-07 14:50] VITALS: BP 138/80; PULSE 87; RESP 17; TEMP 98.3
--- NOTE | 2024-06-09 11:08 | CDI ---
Documentation Clarification Form Date: 06/09/2024 10:36:25 AM From: Charline Travis Phone: Admit Date: 05/30/2024 12:04:00 PM Patient Name: Sophy Gonsales Visit Number: [id number] Discharge Date: 06/07/2024 04:04:00 PM ATTENTION: The Clinical Documentation Specialists (CDI) and [facility] Coding Staff appreciate your assistance in clarifying documentation. Please respond to the clarification below the line at the bottom and electronically sign. The CDI & [facility] Coding staff will review the response and follow-up if needed. Please note: Queries are made part of the Legal Health Record. If you have any questions, please contact the author of this message via ITS. Doctor/Provider: Sebastián Bond Abdominal wall abscess is documented on 05/30 admission. Additional clarification regarding Abdominal wall abscess is requested. History/Risk Factors: Paroxysmal Afib, HTN, HLD Clinical Indicators: 64-year-old female with right abdominal wall hematoma post a fall in January. Had a drain placed during admission in April, discharged home with drain in place and drain was removed on May 21. Cultures during April admission were negative. Patient admitted 05/30 for increased right sided abdominal pain with redness and firmness and has been diagnosed with Abdominal wall abscess. - ED note clinical impression: Abdominal wall abscess, Post op infection Abscess culture: Staphylococcus simulans oxacillin resistant Blood cultures: negative Treatment: IR drainage placement 06/01, IV Vancomycin 1750mg Q16HR and Cefepime 2gm Q8HR, DC'd home on Vancomycin 1,750 mg IVPB Q12HR via PICC Please clarify if Abdominal wall abscess is a complication of the abdominal drain placed during April admission? [ ] Yes [ ] No [ ] Other, please specify [ x ] Unable to determine MTDD
== END 2024-06-07 16:04 | disposition home health service (06) | DRG 603 ==
LOC: EC 06:24 → 4SSUR 12:04
PROVIDERS: ADMIT Internal Medicine; ATTEND Internal Medicine
PROC: 0W9F30Z Drainage of Abdominal Wall with Drainage Device, Percutaneous Approach (ICD-10-PCS; principal; 2024-06-01)
PROC: 02HV33Z Insertion of Infusion Device into Superior Vena Cava, Percutaneous Approach (ICD-10-PCS; 2024-06-07)
PROC: 4A02X4A Measurement of Cardiac Electrical Activity, Guidance, External Approach (ICD-10-PCS; 2024-06-07)
DX: L02.211 Cutaneous abscess of abdominal wall (principal); Z16.11 Resistance to penicillins; I10 Essential (primary) hypertension; E78.5 Hyperlipidemia, unspecified; I48.0 Paroxysmal atrial fibrillation; K59.00 Constipation, unspecified; Z86.011 Personal history of benign neoplasm of the brain
CPT/HCPCS: 10030; 36415; 36573; 71046; 74174; 76942; 80048; 80053; 80202; 81001; 82150; 82565; 82945; 83605; 83615; 83690; 84157; 85025; 85610; 85730; 86850; 86900; 86901; 87040; 87070; 87077; 87102; 87186; 87205; 87636; 88305; 93005; 96361; 96365; 96366; 96375; 99213; 99285

== ENCOUNTER 2024-06-14 14:23 | Day surgery (SDC) | payer MEDICARE ==
[2024-06-14 14:31] VITALS: BP 122/70; PULSE 71; RESP 12; TEMP 98
== END 2024-06-14 15:00 | disposition home or self-care (01) ==
LOC: RADPROMAIN 14:23
PROVIDERS: ATTEND Radiology Body Imaging
DX: Z48.03 Encounter for change or removal of drains (principal); Z91.030 Bee allergy status
CPT/HCPCS: 99213

== ENCOUNTER → 2024-06-18 | Outpatient (CLI) | payer MEDICARE ==
--- NOTE | 2024-06-18 14:36 | CT ---
EXAMINATION TYPE: CT abdomen pelvis w con CT DLP: 1741 mGycm, Automated exposure control for dose reduction was used. DATE OF EXAM: 06/18/2024 1:44 PM COMPARISON: CT abdomen pelvis 05/30/2024, ultrasound-guided soft tissue drainage 06/01/2024 CLINICAL INDICATION:Female, 64 years old with history of L02.211 CUTANEOUS ABSCESS OF ABDOMINAL WALL; f/u abscess TECHNIQUE: Standard CT of the abdomen and pelvis following the administration of 100 cc of Isovue 3 00 IV contrast material and oral contrast. Coronal and sagittal reformats were performed. FINDINGS: LOWER CHEST: Posterior dependent subsegmental atelectasis is noted. Mildly prominent heart. ABDOMEN LIVER: Few subcentimeter hypoattenuating structures are demonstrated throughout the liver, which are too small to accurately characterize but statistically likely to represent simple hepatic cysts GALLBLADDER AND BILE DUCTS: Unremarkable. PANCREAS: Unremarkable. SPLEEN: Unremarkable. ADRENAL GLANDS: Unremarkable. KIDNEYS AND URETERS: No evidence of hydronephrosis or renal calculus. The kidneys enhance symmetrical ly. Contrast is demonstrated within both collecting systems on the delayed phase. PELVIS BLADDER: Unremarkable REPRODUCTIVE: Anteverted uterus with an exophytic calcified fibroid from the fundus measuring up to 3 .4 cm. ABDOMEN & PELVIS STOMACH AND BOWEL: Stomach and duodenum are unremarkable. Enteric contrast reaches the ascending colo n. No evidence for bowel obstruction. No focal bowel wall thickening or surrounding inflammatory rodriguez ges. The appendix is within normal limits. PERITONEUM: No evidence of pneumoperitoneum or free fluid. VASCULATURE: Mild atherosclerotic calcifications are present throughout the abdominal aorta and its b ranches. No evidence of aortic aneurysm. MUSCULOSKELETAL: No acute osseous abnormalities LYMPH NODES: No evidence for lymphadenopathy. SOFT TISSUE/ABDOMINAL WALL: Right anterolateral wall subcutaneous fluid collection redemonstrated wit h internal gas and surrounding fat stranding. There is a thick wall identified. The collection measur es 13.2 x 2.5 x 7.9 cm, previously measured 20.4 x 11.0 x 13.8 cm. The pigtail catheter is identified along the inferior aspect of the collection at its wall. IMPRESSION: Decreased size of now 13.2 cm right anterior lateral abdominal wall subcutaneous abscess. Drainage ca theter is along the inferior aspect of the collection wall and does not appear to be definitively in the collection. This correlates with reported lack of drainage. Interventional radiology consult is r ecommended. [facility], , 06/18/2024 2:33 PM
== END | disposition home or self-care (01) ==
LOC: RADCTMAIN 11:00
PROVIDERS: ATTEND Internal Medicine Infectious Disease
DX: L02.211 Cutaneous abscess of abdominal wall (principal); I70.0 Atherosclerosis of aorta; N85.4 Malposition of uterus; J98.11 Atelectasis
CPT/HCPCS: 74177; Q9967

== ENCOUNTER 2024-06-21 11:47 | Day surgery (SDC) | payer MEDICARE ==
[2024-06-21 12:31] VITALS: BP 151/84; PULSE 84; RESP 18; TEMP 98
== END 2024-06-21 12:31 | disposition home or self-care (01) ==
LOC: RADPROMAIN 11:47
PROVIDERS: ATTEND Radiology Body Imaging
DX: Z48.03 Encounter for change or removal of drains (principal)
CPT/HCPCS: 99213

== ENCOUNTER 2024-06-29 12:12 | Day surgery (SDC) | payer MEDICARE ==
[2024-06-29 12:48] VITALS: TEMP 98.3
[2024-06-29 13:19] VITALS: RESP 18
--- NOTE | 2024-06-29 14:01 | US ---
EXAMINATION TYPE: US asp abscess/hemat/cyst DATE OF EXAM: 06/29/2024 1:36 PM COMPARISON: 06/01/2024 CLINICAL INDICATION:Female, 64 years old with history of abdominal wall abscess; TECHNIQUE: Targeted Ultrasound guided fluid aspiration. PROCEDURE: Informed consent was obtained. Risks including bleeding, infection, damage to surrounding structures, and the potential need for further procedures as well as benefits were explained. All pa tient questions were answered. Initial ultrasound images were taken which showed safest access to fluid collection located at the The patient was prepped and draped. Under sterile technique with 1% lidocaine local anesthesia a 5-Fr ench one-step needle/catheter was inserted under ultrasound guidance. 5 cc sterile saline was in inje cted and attempted to be aspirated. No significant fluid was aspirated. Small scant sample was obtain ed and sent to the lab. The patient tolerated the procedure well without complication. The patient wa s transferred to recovery in stable condition. IMPRESSION: Attempted ultrasound fluid aspiration of the subcutaneous finding in the right lower abdominal wall. A small tiny simple was sent to lab for analysis [facility], , 06/29/2024 1:59 PM
[2024-06-29 16:06] VITALS: BP 152/74; PULSE 60
== END 2024-06-29 13:45 | disposition home or self-care (01) ==
LOC: RADPROMAIN 12:12
PROVIDERS: ATTEND Radiology Body Imaging
DX: L02.211 Cutaneous abscess of abdominal wall (principal)
CPT/HCPCS: 10160; 87070; 87075; 87205

== ENCOUNTER → 2024-11-02 | Outpatient (CLI) | payer MEDICARE ==
--- NOTE | 2024-11-02 09:09 | MM ---
Reason for Exam: Screening (asymptomatic). Last mammogram was performed 1 year(s) and 1 month(s) ago. Patient History: Menarche at age 11. Patient has no children. Postmenopausal. Patient used Hormonal Contraceptives for 10 years. Benign Excisional Biopsy on the right side. Risk Values: Sheila 5 year model risk: 2.2%. NCI Lifetime model risk: 7.9%. Prior Study Comparison: 08/21/2022 Left MG 3D work up w/cad LT, [facility]. 04/09/2023 Left MG 3D diag mammo w/cad LT, [facility]. 10/03/2023 Bilateral MG 3D screening mammo w/cad, [facility]. Tissue Density: The breasts are heterogeneously dense, which may obscure small masses. Findings: Analyzed By CAD. There are benign-appearing round, linear, and vascular calcifications bilaterally redemonstrated. Stable 5 mm circumscribed mass in the anterior outer aspect right breast. There are new benign-appearing dystrophic calcifications throughout the left breast. There are 1-2 new groups of indistinct calcifications in the left breast that warrant further workup more posteriorly. Overall Assessment: Incomplete: need additional imaging evaluation, BI-RAD 0 Management: Special View Mammogram of the left breast. Return for additional spot magnification and 3-D true lateral views left breast.. Patient should continue monthly self-breast exams. A clinical breast exam by your physician is recommended on an annual basis. This exam should not preclude additional follow-up of suspicious palpable abnormalities. Note on Sheila scores and lifetime risk: 1. A Sheila score greater than 3% is considered moderate risk. If this is the case, consider specialist referral to assess eligibility for a risk reducing agent. 2. If overall lifetime risk for the development of breast cancer is 20% or higher, the patient may qualify for future screening with alternating mammogram and breast MRI. [facility], , 11/02/2024 9:06 AM. Electronically signed and approved by: Amilcar Carter M.D.
== END | disposition home or self-care (01) ==
LOC: RADMAMWWP 08:02
PROVIDERS: ATTEND Internal Medicine Geriatric Medicine
DX: Z12.31 Encounter for screening mammogram for malignant neoplasm of breast (principal); R92.333 Mammographic heterogeneous density, bilateral breasts; Z78.0 Asymptomatic menopausal state; Z92.0 Personal history of contraception
CPT/HCPCS: 77063; 77067

== ENCOUNTER → 2024-11-03 | Outpatient (CLI) | payer MEDICARE ==
--- NOTE | 2024-11-03 10:47 | MM ---
Reason for Exam: Additional evaluation requested from abnormal screening. Last screening mammogram was performed less than 1 month ago. Patient History: Menarche at age 11. Patient has no children. Postmenopausal. Patient used Hormonal Contraceptives for 10 years. Benign Excisional Biopsy on the right side. Risk Values: Sheila 5 year model risk: 2.2%. NCI Lifetime model risk: 7.9%. Prior Study Comparison: 04/09/2023 Left MG 3D diag mammo w/cad LT, [facility]. 10/03/2023 Bilateral MG 3D screening mammo w/cad, [facility]. 11/02/2024 Bilateral MG 3D screening mammo w/cad, [facility]. Tissue Density: Left: The breasts are heterogeneously dense, which may obscure small masses. Findings: Analyzed By CAD. There are new rounded calcifications seen within the [place] of multiple cysts and/or oral cysts. No definite suspicious cluster is identified however six-month follow-up mammography is advised. Overall Assessment: Probably benign, BI-RAD 3 Management: Diagnostic Mammogram of the left breast in 6 months. . Results were given to the patient verbally at the time of exam. Patient should continue monthly self-breast exams. A clinical breast exam by your physician is recommended on an annual basis. This exam should not preclude additional follow-up of suspicious palpable abnormalities. Note on Sheila scores and lifetime risk: 1. A Sheila score greater than 3% is considered moderate risk. If this is the case, consider specialist referral to assess eligibility for a risk reducing agent. 2. If overall lifetime risk for the development of breast cancer is 20% or higher, the patient may qualify for future screening with alternating mammogram and breast MRI. [facility], , 11/03/2024 10:44 AM. Electronically signed and approved by: Oliverio Gaviria M.D. Radi[facility]
== END | disposition home or self-care (01) ==
LOC: RADMAMWWP 10:21
PROVIDERS: ATTEND Internal Medicine Geriatric Medicine
DX: R92.8 Other abnormal and inconclusive findings on diagnostic imaging of breast (principal); R92.1 Mammographic calcification found on diagnostic imaging of breast; R92.332 Mammographic heterogeneous density, left breast; Z78.0 Asymptomatic menopausal state; Z92.0 Personal history of contraception
CPT/HCPCS: 77065; G0279; 77061